=== PATIENT | female | born 1945 | race Caucasian/White ===

== ENCOUNTER → 2018-05-21 10:19 | Outpatient (CLI) | payer MEDICARE, OTHER, SELFPAY ==
--- NOTE | 2018-05-21 | DI.RAD.S_ITS ---
PROCEDURE: XR CERVICAL SPINE 2V OR 3V INDICATIONS: 72 year-old female with acute neck pain. TECHNIQUE: 4 view(s) of the cervical spine were acquired. COMPARISON: None. FINDINGS: Bones: No fractures or dislocations to the C6 level. The lateral masses of C1 appear intact on the odontoid view. There is C5-C6 degenerative disc narrowing. No suspicious bony lesions. Soft tissues: No prevertebral soft tissue swelling. Right chest central venous catheter is incompletely visualized. IMPRESSION: No acute bony injuries of the cervical spine to the C6 level. Cervicothoracic junction is unable to be seen. Mild C5-C6 disc degeneration. Dictated by: Avni Alvarado M.D. on 05/21/2018 at 12:18 Approved by: Avni Alvarado M.D. on 05/21/2018 at 12:21
--- NOTE | 2018-05-21 | DI.CT.S_ITS ---
PROCEDURE: CT ABDOMEN PELVIS W CON INDICATIONS: COLON CANCER. LEFT UPPER QUADRANT ABDOMINAL PAIN TECHNIQUE: After the administration of oral and intravenous contrast, 5 mm thick sections acquired from the diaphragms to the symphysis. 5 mm thick coronal and sagittal reformats were performed. For radiation dose reduction, the following was used: automated exposure control, adjustment of mA and/or kV according to patient size. COMPARISON: [facility], [place], PET/CT WHOLE BODY EXTENDED, 08/27/2015, 11:44. [facility], [place], THORAX WITH CONTRAST, 06/19/2016, 9:03. [facility], [place], CHEST/ABDOMEN WITH CONTRAST, 11/29/2016, 10:48. [facility], [place], CHEST/ABDOMEN WITH CONTRAST, 06/01/2017, 10:46. FINDINGS: Image quality: Excellent. ABDOMEN: Lung bases: A 5 mm subpleural nodule in the left lower lobe is probably small round atelectasis. A 3 mm nodule is noted in the right middle lobe (series 3 image 8), unchanged since 06/01/2017. Heart size is normal. Small hiatal hernia. Solid organs: Mild diffuse hepatic fatty infiltration. Liver is normal in size and enhancement. Gallbladder is normal. Biliary system is non-dilated. Pancreas enhances normally. Spleen is normal in size and enhancement. No adrenal nodules. Kidneys are normal in size and enhancement, without hydronephrosis. Peritoneum and bowel: Stomach, small bowel, and colon loops are normal in caliber and wall thickness. There is right hemicolectomy. No free fluid or air. Nodes and vessels: No retroperitoneal or mesenteric adenopathy. Aorta and inferior vena cava are normal in caliber. Miscellaneous: There are 2 fat-containing ventral hernias are see in the upper abdomen, one midline just below the xiphoid and one left of the midline more inferiorly. PELVIS: Genitourinary: Bladder wall thickness is normal. Miscellaneous: No inguinal hernias or adenopathy. Bones: No suspicious bony lesions. No vertebral body compression fractures. IMPRESSION: 1. Stable 3 mm right middle lobe nodule. 2. Small hiatal hernia. 3. A couple of fat-containing ventral hernias are seen in upper abdomen. 4. No evidence for recurrent colon cancer or metastatic disease. Dictated by: Crystal Persaud M.D. on 05/21/2018 at 15:13 Transcribed by: GUSTAVO on 05/21/2018 at 15:20 Approved by: Crystal Persaud M.D. on 05/21/2018 at 15:29
== END ==
PROVIDERS: PCP Internal Medicine; Visit Provider Internal Medicine
DX: C18.9 Malignant neoplasm of colon, unspecified (principal); R10.12 Left upper quadrant pain; K44.9 Diaphragmatic hernia without obstruction or gangrene; K43.9 Ventral hernia without obstruction or gangrene; R91.8 Other nonspecific abnormal finding of lung field; M50.322 Other cervical disc degeneration at C5-C6 level; M54.2 Cervicalgia
CPT/HCPCS: 72040; 74177; Q9967

== ENCOUNTER 2018-10-01 11:30 | Oncology outpatient (ONC) | payer MEDICARE, OTHER, SELFPAY ==
[2018-06-03 14:06] LABS: Add Manual Diff / Slide Review NO; Basophils Percent Auto 0.9 % (0-2); Eosinophils Percent Auto 2.1 % (2-4); Hematocrit 40.2 % (36-46); Hemoglobin 13.4 g/dL (12.0-16.0); Lymphocytes Percent Auto 17.4 % (25-40); Mean Corpuscular HGB Conc 33.3 % (30-36); Mean Corpuscular Hemoglobin 29.3 PG (26-34); Mean Corpuscular Volume 88.1 fL (80-100); Monocytes Percent Auto 7.6 % (3-14); Neutrophils Absolute Auto 6000 /uL (3000-5900); Platelet Count 180 X10^3/uL (150-400); Red Blood Cell Count 4.56 X10^6/uL (4.0-5.2); Red Cell Distribution Width 16.5 % (11.6-14.8); White Blood Cell Count 8.3 X10^3/uL (4.5-11.0)
[2018-06-03 14:18] LABS: Alanine Aminotransferase 28 IU/L (9-52); Albumin Globulin Ratio 1.5 (1.0-2.8); Alkaline Phosphatase 96 U/L (38-126); Aspartate Aminotransferase 26 IU/L (14-36); BUN Creatinine Ratio 22.5 (6-22); Bilirubin Total 0.4 mg/dL (0.2-1.3); Blood Urea Nitrogen 18 mg/dL (7-17); Calcium 8.9 mg/dL (8.4-10.2); Carbon Dioxide 18 mmol/L (22-32); Chloride 109 mmol/L (98-107); Estimated Glomerular Filt Rate > 60.0 mL/min (>60); Globulin 2.7 g/dL (1.7-4.1); Glucose 225 mg/dL (80-110); Lactate Dehydrogenase 517 U/L (313-618); Sodium 139 mmol/L (137-145); Total Protein 6.7 g/dL (6.3-8.2)
[2018-06-03 19:50] LABS: Ferritin 47.9 ng/mL (11.1-264); HEMOLYSIS 33 (0-50)
[2018-06-03 20:27] LABS: HEMOLYSIS 30 (0-50); Total Iron Binding Capacity 317 ug/dL (265-497); Transferrin 255 mg/dL (206-381)
[2018-06-03 20:55] LABS: Iron 54 ug/dL (37-170); Percent Iron Saturation 17 % (15-50)
[2018-06-11 11:57] VITALS: BP 121/62; PULSE 71; RESP 18; TEMP 36; O2SAT 98
--- NOTE | 2018-06-11 12:34 | ONC.GEN.PN ---
Diagnosis (1) Large B-cell lymphoma Diagnosis: 06/11/18 12:35 1. 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 Also found to have multiple bilateral pulmonary nodules. Stage IV disease. Bone marrow exam negative. C SF evaluation negative. Initial presentation with partial upper airway obstruction, improved on subsequent dexamethasone. Subsequently initiated on standard R/CHOP chemotherapy, completed on 07/23/2015. Chemotherapy followed by involved field radiation therapy, completed in mid September,. Her Port-A-Cath remains in. 2.. Chronic left knee pain. Upcoming surgery planned. 3.. Refractory/intermittent dysphagia/mild odynophagia on occasion, secondary to 2 granular cysts in her upper airway. 4. Previous confirmation of moderately severe iron deficiency anemia, in mid November 2016. Subsequently placed on twice daily ferrous sulfate. History of Present Illness History Of Present Illness: 06/11/18 12:38 Laya returns today for routine follow-up. When previously seen in mid February, she had just damaged her right eye, after bumping a night stand. It apparently was punctured. She has had 2 surgeries on her eye since our last visit. Her eye pressures remain in the mid 20 range. Her right-sided vision is very limited to a narrow central visual field. She has not yet had her left knee surgery. She is due to be rescoped by Dr. Nguyen shortly regarding her persistent dysphagia issues. She has completed her prior iron therapy. She denies any new lumps or bumps. Her recent appetite has been fine. She notes persistent hoarseness since her prior RT therapy. Home Medications and Allergies Home Medications Medication Instructions Recorded Confirmed Type lidocaine #0 06/21/16 History cyclobenzaprine 10 mg PO #0 10/27/17 History diazepam [Valium] 5 mg PO Q8HP PRN #10 tab 10/27/17 Rx oxycodone-acetaminophen [Percocet] 1 - 2 tab PO Q4HP PRN #20 tab 10/27/17 Rx oxycodone-acetaminophen [Percocet] 2 tab PO Q6HP PRN #14 tab 01/07/18 Rx [STOOL SOFTNER] 1 cap PO HS #0 01/11/18 History ferrous sulfate [Iron (ferrous 325 mg PO BID #0 01/11/18 History sulfate)] polysaccharide iron complex 150 mg PO BID #60 cap 01/11/18 Rx [Ferrex 150] methocarbamol 500 mg PO QIDP PRN #0 03/12/18 History brimonidine See Label Instructions .ROUTE 06/11/18 06/11/18 History .COMPLEX cyclopentolate [Cyclogyl] See Label Instructions .ROUTE 06/11/18 06/11/18 History .COMPLEX timolol [Betimol] See Label Instructions .ROUTE 06/11/18 06/11/18 History .COMPLEX travoprost [Travatan Z] See Label Instructions .ROUTE 06/11/18 06/11/18 History .COMPLEX Allergies Allergy/AdvReac Type Severity Reaction Status Date / Time adhesive tape [ADHESIVE TAPE] Allergy Mild BLISTERS Unverified 03/06/18 12:32 gabapentin AdvReac Severe SWELLING Unverified 03/06/18 12:32 THROAT codeine AdvReac Intermediate HALLUCINATI Unverified 03/06/18 12:32 ONS Exam Vital Signs: Vital Signs - 24 hr 06/11/18 11:57 Temperature 96.8 F L Pulse Rate 71 Respiratory Rate 18 Blood Pressure 121/62 H Pulse Oximetry 98 Exam: Blood pressure 121/62. Temperature 96.8?. Pulse rate 71. O2 saturation on room air was 98%. Weight 231 lb. Her right eye was almost completely closed. The eye itself was moderately inflamed. The oropharynx today was clear. I found this patient be mildly hoarse. Both lungs were clear to auscultation and percussion. No pathologic lymphadenopathy was noted today in the pre or postauricular, neck, chin, supraclavicular, epitrochlear or inguinal areas. Heart sounds were fine. Her abdomen was moderately obese and without palpable tenderness. There was no lower extremity fluid retention. She had pretty prominent varicose veins. Results - Labs 06/03/18 13:51 06/03/18 13:51 Laboratory Last Values WBC 8.3 X10^3/uL (4.5-11.0) 06/03/18 13:51 RBC 4.56 X10^6/uL (4.0-5.2) 06/03/18 13:51 Hgb 13.4 g/dL (12.0-16.0) 06/03/18 13:51 Hct 40.2 % (36-46) 06/03/18 13:51 MCV 88.1 fL (80-100) 06/03/18 13:51 MCH 29.3 PG (26-34) 06/03/18 13:51 MCHC 33.3 % (30-36) 06/03/18 13:51 RDW 16.5 % (11.6-14.8) H 06/03/18 13:51 Plt Count 180 X10^3/uL (150-400) 06/03/18 13:51 Neut % (Auto) 72.0 % (50-75) 06/03/18 13:51 Lymph % (Auto) 17.4 % (25-40) L 06/03/18 13:51 [place] % (Auto) 7.6 % (3-14) 06/03/18 13:51 Eos % (Auto) 2.1 % (2-4) 06/03/18 13:51 Baso % (Auto) 0.9 % (0-2) 06/03/18 13:51 Neut # (Auto) 6000 /uL (8527-6036) H 06/03/18 13:51 Sodium 139 mmol/L (137-145) 06/03/18 13:51 Potassium 4.0 mmol/L (3.4-5.1) 06/03/18 13:51 Chloride 109 mmol/L (98-107) H 06/03/18 13:51 Carbon Dioxide 18 mmol/L (22-32) L 06/03/18 13:51 BUN 18 mg/dL (7-17) H 06/03/18 13:51 Creatinine 0.80 mg/dL (0.52-1.04) 06/03/18 13:51 Estimated GFR > 60.0 mL/min (>60) 06/03/18 13:51 BUN/Creatinine Ratio 22.5 (6-22) H 06/03/18 13:51 Glucose 225 mg/dL (80-110) H 06/03/18 13:51 Calcium 8.9 mg/dL (8.4-10.2) 06/03/18 13:51 Iron 54 ug/dL (37-170) 06/03/18 13:51 TIBC 317 ug/dL (265-497) 06/03/18 13:51 % Saturation 17 % (15-50) 06/03/18 13:51 Transferrin 255 mg/dL (206-381) 06/03/18 13:51 Ferritin 47.9 ng/mL (11.1-264) 06/03/18 13:51 Total Bilirubin 0.4 mg/dL (0.2-1.3) 06/03/18 13:51 AST 26 IU/L (14-36) 06/03/18 13:51 ALT 28 IU/L (9-52) 06/03/18 13:51 Alkaline Phosphatase 96 U/L (38-126) 06/03/18 13:51 Lactate Dehydrogenase 517 U/L (313-618) 06/03/18 13:51 Total Protein 6.7 g/dL (6.3-8.2) 06/03/18 13:51 Albumin 4.0 g/dL (3.5-5.0) 06/03/18 13:51 Globulin 2.7 g/dL (1.7-4.1) 06/03/18 13:51 Albumin/Globulin Ratio 1.5 (1.0-2.8) 06/03/18 13:51 Impression Laya is now 2 years and 8 months out from completion of her chemotherapy. There are no signs of recurrent lymphoma. Her laboratory suggests that she has completely recovered from her prior iron deficiency anemia. We again agreed today leave her Port-A-Cath in until she gets some of these other speed bumps behind her. She is due to be rescoped by Dr. Nguyen shortly. At some point in time, Dr. Cannon will perform her left knee surgery. I will ask Laya to return here in 6 weeks for a PAC flush. I have her returning for oncologic follow-up in 4 months. Due to my upcoming half-way, she will see the nurse practitioner upon her return. I wished her well.
[2018-10-01 11:14] LABS: Add Manual Diff / Slide Review NO; Basophils Percent Auto 0.9 % (0-2); Eosinophils Percent Auto 2.7 % (2-4); Hematocrit 38.9 % (36-46); Hemoglobin 12.9 g/dL (12.0-16.0); Lymphocytes Percent Auto 18.1 % (25-40); Mean Corpuscular HGB Conc 33.3 % (30-36); Mean Corpuscular Hemoglobin 29.2 PG (26-34); Mean Corpuscular Volume 87.8 fL (80-100); Monocytes Percent Auto 7.2 % (3-14); Neutrophils Absolute Auto 5100 /uL (3000-5900); Neutrophils Percent Auto 71.1 % (50-75); Platelet Count 167 X10^3/uL (150-400); Red Blood Cell Count 4.43 X10^6/uL (4.0-5.2); Red Cell Distribution Width 14.8 % (11.6-14.8); White Blood Cell Count 7.1 X10^3/uL (4.5-11.0)
[2018-10-01 11:26] LABS: Alanine Aminotransferase 32 IU/L (9-52); Albumin 4.2 g/dL (3.5-5.0); Albumin Globulin Ratio 1.6 (1.0-2.8); Alkaline Phosphatase 67 U/L (38-126); Aspartate Aminotransferase 25 IU/L (14-36); BUN Creatinine Ratio 23.3 (6-22); Bilirubin Total 0.5 mg/dL (0.2-1.3); Blood Urea Nitrogen 14 mg/dL (7-17); Calcium 8.9 mg/dL (8.4-10.2); Carbon Dioxide 29 mmol/L (22-32); Chloride 101 mmol/L (98-107); Estimated Glomerular Filt Rate > 60.0 mL/min (>60); Globulin 2.7 g/dL (1.7-4.1); Glucose 117 mg/dL (80-110); HEMOLYSIS < 15 (0-50); Lactate Dehydrogenase 487 U/L (313-618); Potassium 4.5 mmol/L (3.4-5.1); Sodium 143 mmol/L (137-145); Total Protein 6.9 g/dL (6.3-8.2)
--- NOTE | 2018-10-01 12:38 | ONC.APRN.PN ---
PN -Subjective Interval history: The pt is a 73-year-old female who carries a diagnosis of: 1. 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 Also found to have multiple bilateral pulmonary nodules. Stage IV disease. Bone marrow exam negative. C SF evaluation negative. Initial presentation with partial upper airway obstruction, improved on subsequent dexamethasone. Subsequently initiated on standard R/CHOP chemotherapy, completed on 07/23/2015. Chemotherapy followed by involved field radiation therapy, completed in mid September,. Her Port-A-Cath remains in. 2.. Chronic left knee pain. Upcoming surgery planned. 3.. Refractory/intermittent dysphagia/mild odynophagia on occasion, secondary to 2 granular cysts in her upper airway as well as sequelae from radiation. 4. Previous confirmation of moderately severe iron deficiency anemia, in mid November 2016. Subsequently placed on twice daily ferrous sulfate. 5. Eye injury (puncture) now just completing her 3rd occular surgery The patient is accompanied today by her spouse. No acute complaints on exam today. No recent illnesses or infections. Infrequent night sweats, better when my sugars are ok. No new pain. No new lumps or bumps. At baseline patient ambulates using a cane. Functional status is stable, activity tolerance is stable. No change in appetite. No issue with bowel or bladder habits. Requesting to have implanted port removed, originally placed 2014. She is scheduled for annual mammogram 10/02/2018. - Patient Self-Reported Symptoms SR eye issues: Vision changes, Eye pain SR ears, nose, mouth, throat issues: Difficulty swallowing Home Medications and Allergies Home Medications Medication Instructions Recorded Confirmed Type lidocaine #0 06/21/16 History cyclobenzaprine 10 mg PO #0 10/27/17 History diazepam [Valium] 5 mg PO Q8HP PRN #10 tab 10/27/17 Rx [STOOL SOFTNER] 1 cap PO HS #0 01/11/18 History timolol [Betimol] See Label Instructions .ROUTE 06/11/18 06/11/18 History .COMPLEX Lantus U-100 Insulin BID 10/01/18 History brimonidine [Alphagan P] 10/01/18 History insulin aspart U-100 [Novolog 10/01/18 History U-100 Insulin aspart] levothyroxine 300 mcg PO DAILY 10/01/18 10/01/18 History omeprazole 40 mg PO DAILY 10/01/18 10/01/18 History prednisolone acet-gatifloxacin BID 10/01/18 History simvastatin 10/01/18 History telmisartan [Micardis] DAILY 10/01/18 History Allergies Allergy/AdvReac Type Severity Reaction Status Date / Time adhesive tape [ADHESIVE TAPE] Allergy Mild BLISTERS Unverified 03/06/18 12:32 gabapentin AdvReac Severe SWELLING Unverified 03/06/18 12:32 THROAT codeine AdvReac Intermediate HALLUCINATI Unverified 03/06/18 12:32 ONS Exam - Constitutional positive no acute distress, positive obese, positive chronically ill appearing - Routine HEENT Exam Head: Present: normocephalic, atraumatic Comments: right eye surgery recently - Routine Neck Exam Present: supple. Absent: lymphadenopathy - Routine Chest/Breast/Axilla Exam Axillae: Absent: lymphadenopathy, mass, tenderness - Routine Respiratory Exam Present: Clear to auscultation bilaterally, decreased breath sounds. Absent: accessory muscle use, prolonged expiratory phase, rales, rhonchi, wheezes - Routine Cardiovascular Exam Present: RRR, S1, S2, murmur. Absent: gallop, rubs, JVD - Routine Abdominal Exam Present: soft, normoactive bowel sounds. Absent: tenderness, distended, guarding, organomegaly, mass - Routine Extremities Exam Comments: chronic 1+ BLE symmetric edema, pitting - Routine Skin Exam Present: intact, normal turgor. Absent: petechiae - Routine Neurological Exam Present: alert, oriented X3 - Routine Psychiatric Exam Present: normal affect Results - Labs Laboratory Last Values WBC 7.1 X10^3/uL (4.5-11.0) 10/01/18 10:46 RBC 4.43 X10^6/uL (4.0-5.2) 10/01/18 10:46 Hgb 12.9 g/dL (12.0-16.0) 10/01/18 10:46 Hct 38.9 % (36-46) 10/01/18 10:46 MCV 87.8 fL (80-100) 10/01/18 10:46 MCH 29.2 PG (26-34) 10/01/18 10:46 MCHC 33.3 % (30-36) 10/01/18 10:46 RDW 14.8 % (11.6-14.8) 10/01/18 10:46 Plt Count 167 X10^3/uL (150-400) 10/01/18 10:46 Neut % (Auto) 71.1 % (50-75) 10/01/18 10:46 Lymph % (Auto) 18.1 % (25-40) L 10/01/18 10:46 [place] % (Auto) 7.2 % (3-14) 10/01/18 10:46 Eos % (Auto) 2.7 % (2-4) 10/01/18 10:46 Baso % (Auto) 0.9 % (0-2) 10/01/18 10:46 Neut # (Auto) 5100 /uL (3266-7691) 10/01/18 10:46 Sodium 143 mmol/L (137-145) 10/01/18 10:46 Potassium 4.5 mmol/L (3.4-5.1) 10/01/18 10:46 Chloride 101 mmol/L (98-107) 10/01/18 10:46 Carbon Dioxide 29 mmol/L (22-32) 10/01/18 10:46 BUN 14 mg/dL (7-17) 10/01/18 10:46 Creatinine 0.60 mg/dL (0.52-1.04) 10/01/18 10:46 Estimated GFR > 60.0 mL/min (>60) 10/01/18 10:46 BUN/Creatinine Ratio 23.3 (6-22) H 10/01/18 10:46 Glucose 117 mg/dL (80-110) H 10/01/18 10:46 Calcium 8.9 mg/dL (8.4-10.2) 10/01/18 10:46 Iron 54 ug/dL (37-170) 06/03/18 13:51 TIBC 317 ug/dL (265-497) 06/03/18 13:51 % Saturation 17 % (15-50) 06/03/18 13:51 Transferrin 255 mg/dL (206-381) 06/03/18 13:51 Ferritin 47.9 ng/mL (11.1-264) 06/03/18 13:51 Total Bilirubin 0.5 mg/dL (0.2-1.3) 10/01/18 10:46 AST 25 IU/L (14-36) 10/01/18 10:46 ALT 32 IU/L (9-52) 10/01/18 10:46 Alkaline Phosphatase 67 U/L (38-126) 10/01/18 10:46 Lactate Dehydrogenase 487 U/L (313-618) 10/01/18 10:46 Total Protein 6.9 g/dL (6.3-8.2) 10/01/18 10:46 Albumin 4.2 g/dL (3.5-5.0) 10/01/18 10:46 Globulin 2.7 g/dL (1.7-4.1) 10/01/18 10:46 Albumin/Globulin Ratio 1.6 (1.0-2.8) 10/01/18 10:46 - Imaging Additional studies: Procedures Insertion of totally implantable vascular access device [VAD] (04/06/15) Spinal tap (03/26/15) Assessment and Plan (1) Large B-cell lymphoma Current visit: Yes Status: Acute 73-year-old female with history of non-Hodgkin lymphoma, large B-cell. Reassuringly on exam today no clinical signs or symptoms to suggest disease recurrence. CBC, CMP, LDH within normal limits. Patient is requesting to have implanted port removed this was originally placed 2014. We will set up a consult with Dr Acosta, surgeon. RTC in 6 months for provider visit, cbc cmp LDH sooner for any acute changes including new lumps/bumps, persistent night sweats, change in appetite, unexplained weight loss. - Time Spent with Patient 25 mins
== END 2018-10-02 12:00 ==
PROVIDERS: PCP Internal Medicine; Visit Provider Internal Medicine Hematology & Oncology
DX: C83.31 Diffuse large B-cell lymphoma, lymph nodes of head, face, and neck (principal)
CPT/HCPCS: 36592; 72040; 74177; 80053; 82728; 83540; 83550; 83615; 85025; 96523; 99214; Q9967

== ENCOUNTER → 2018-10-02 11:02 | Outpatient (CLI) | payer MEDICARE, OTHER, SELFPAY ==
--- NOTE | 2018-10-02 | DI.MG.S_ITS ---
BILATERAL DIGITAL SCREENING MAMMOGRAM 3D/2D WITH CAD: 10/02/2018 CLINICAL: Routine screening. No prior exams were available for comparison. The tissue of both breasts is heterogeneously dense. This may lower the sensitivity of mammography. Current study was also evaluated with a Computer Aided Detection (CAD) system. There are benign vascular calcifications in both breasts. No significant masses, calcifications, or other findings are seen in either breast. IMPRESSION: There is no mammographic evidence of malignancy. A 1 year screening mammogram is recommended. NOTE: For mammograms, a report in lay terms will be sent to the patient. Approximately 15% of breast malignancies will not be visualized mammographically. In the management of a palpable breast mass, a negative mammogram must not discourage biopsy of a clinically suspicious lesion. Electronically Signed By: Trista corey/joseph:10/02/2018 15:46:56 letter sent: Normal Exam ACR BI-RADS Category 2: Benign Finding(s) 3342F
== END ==
PROVIDERS: Family Provider Internal Medicine Hematology & Oncology; PCP Internal Medicine; Visit Provider Internal Medicine
DX: Z12.31 Encounter for screening mammogram for malignant neoplasm of breast (principal)
CPT/HCPCS: 77063; 77067

== ENCOUNTER 2018-11-13 10:31 | Day surgery (SDC) | payer MEDICARE, OTHER, SELFPAY ==
[2018-11-08 09:58] VITALS: BMI 41.3
[2018-11-13 12:39] VITALS: BP 123/67; PULSE 57; RESP 15; TEMP 36.1; O2SAT 100; BMI 41.3
[2018-11-13] MEDS: LACTATED RINGERS 1,000 ML 42 ML IV (12:45)
--- NOTE | 2018-11-13 13:44 | SUR.OPER ---
Supine on padded OR bed, head on pillow, arms secured on padded arm boards at <90 degrees abduction, legs uncrossed, safety belt at thigh, tape over blanket over lower legs.
--- NOTE | 2018-11-13 14:06 | PM.HP.1 ---
History of Present Illness Date Patient Seen: 11/13/18 Time Patient Seen: 14:07 Chief complaint: [id number] Narrative: Wonderful lady who is well known to me from prior visits. She has completed her chemotherapy and presents today for port removal. Patient History Medical History Arthritis (Acute) Bowel obstruction (Acute) Colon cancer (Acute) Constipation (Acute) Diabetes (Acute) Frequent headaches (Acute) GERD (gastroesophageal reflux disease) (Acute) HTN (hypertension) (Acute) Hyperlipidemia (Acute) Hypothyroidism (Acute) Joint pain (Acute) Port-A-Cath in place (Acute 04/06/15) Sarcoidosis (Acute) Tracheal stenosis (Acute) Vision changes (Acute) Surgical History History of biopsy (Acute) History of bone marrow biopsy (Acute) History of section (Acute) Hx of eye surgery (Acute) Hx of hernia repair (Acute) Family & Social History Family History: Reviewed 11/13/18 by Lois Acosta MD Social History: household members spouse Tobacco & Substance use: Smoking Status Never smoker Meds Home Medications Medication Instructions Recorded Confirmed Type lidocaine #0 06/21/16 10/10/18 History cyclobenzaprine 10 mg PO #0 10/27/17 10/10/18 History [STOOL SOFTNER] 1 cap PO HS #0 01/11/18 10/10/18 History timolol [Betimol] See Label Instructions .ROUTE 06/11/18 11/08/18 History .COMPLEX Lantus U-100 Insulin BID 10/01/18 10/10/18 History brimonidine [Alphagan P] 10/01/18 10/10/18 History insulin aspart U-100 [Novolog 10/01/18 10/10/18 History U-100 Insulin aspart] levothyroxine 300 mcg PO DAILY 10/01/18 11/13/18 History omeprazole 40 mg PO DAILY 10/01/18 11/13/18 History prednisolone acet-gatifloxacin BID 10/01/18 10/10/18 History simvastatin 10/01/18 10/10/18 History telmisartan [Micardis] DAILY 10/01/18 10/10/18 History diazepam [Valium] 5 mg PO Q8HP PRN 11/08/18 11/13/18 History metformin 500 mg PO DAILY 11/13/18 11/13/18 History Allergies Allergy/AdvReac Type Severity Reaction Status Date / Time adhesive tape [ADHESIVE TAPE] Allergy Mild BLISTERS Verified 11/13/18 12:38 gabapentin AdvReac Severe SWELLING Verified 11/13/18 12:38 THROAT codeine AdvReac Intermediate HALLUCINATI Verified 11/13/18 12:38 ONS Review of Systems Review of Systems All systems reviewed & are unremarkable except as noted in HPI and below Exam Vital Signs (past 8 hours): - 11/13/18 12:39 Temperature 96.9 F L Pulse Rate 57 L Respiratory Rate 15 Blood Pressure 123/67 Pulse Oximetry 100 Oxygen Delivery Method Room Air Narrative Exam Narrative: Elderly lady in no obvious distress HEENT: Normocephalic and atraumatic, sclera are anicteric Lungs: Clear Heart: Regular rate and rhythm Chest: Port in place in the right chest Abdomen: Soft, nontender, active bowel sounds Extremities: Multiple wounds noted Assessment & Plan Plan: Assessment/Plan Narrative: Pleasant lady having completed chemotherapy for lymphoma. We discussed the risks and benefits of port removal and she has expressed a desire to complete the procedure today.
[2018-11-13] MEDS: LIDOCAINE 1% W/EPI INJ 20 ML INJ (14:24)
[2018-11-13] MEDS: BUPIVACAINE 0.5% (PF) VIAL 30 ML INJ (14:24)
--- NOTE | 2018-11-13 14:27 | PM.OP.1 ---
Operative Date/Time/Diagnoses Date of procedure: 11/13/18 Time of procedure: 14:27 Pre-op diagnosis: Completed Chemotherapy Post-op diagnosis: same Procedure & Clinicians Procedure: Power port removal Same procedure as scheduled: Yes Indications: No longer required Surgeon: Lois Acosta Click Yes if Unassisted: Yes Anesthesia Type: General and MAC +/- (Dr. Engel) Operative Notes Findings: Port in good repair Closure Type: primary Estimated Blood Loss (mL): 2 Procedure in detail: After obtaining informed consent, the patient was brought to the operating room and placed in the supine position on the operating table. Following successful induction of IV sedation with monitored anesthesia care, the chest was prepped and draped in the standard surgical fashion. A timeout was held per SCOAP protocol. Following infiltration with local anesthetic to create a field block, the existing healed incision was repeated. This was carried down through the skin and subcutaneous tissue to reveal the tubing of the implanted central venous device. The tubing was carefully dissected free from surrounding structures and delivered into the field. Pressure was held at the deltopectoral groove to prevent air embolus and backbleeding. After 5 minutes time, we continued with dissection of the remaining portion of the port. The reservoir itself remained in the pocket and has been incorporated into the tissue. This was carefully dissected free with judicious use of a scalpel. It was delivered into the field as a single piece with tubing attached. The incision was checked for hemostasis and irrigated with warm saline solution. Once we were satisfied that all was clean and dry, it was closed in 2 layers with Vicryl Monocryl sutures. Dermabond was applied to the skin incision. All sponge, needle, and instrument counts were correct at the conclusion of the case. The patient was allowed to awaken from sedation without difficulty and taken to the post anesthesia care unit in good condition. Complications: none Condition: stable Disposition: PACU Plan for aftercare: 1. Discharge to home 2. Follow up with me in 2-3 weeks for a wound check
[2018-11-13 14:30] VITALS: BP 112/45; PULSE 69; RESP 12; TEMP 36.6; O2SAT 95
[2018-11-13 14:35] VITALS: BP 121/40; PULSE 65; RESP 14; TEMP 36.7; O2SAT 97
[2018-11-13 14:38] VITALS: BP 121/40; PULSE 68; RESP 18; TEMP 36.6; O2SAT 97
--- NOTE | 2018-11-13 14:40 | SUR.PHASEII ---
see I&O for total of Lacrtated ringers infused- not noted in MAR on arrival to PACU
== END 2018-11-13 15:10 | disposition home or self-care (01) ==
PROVIDERS: Family Provider Internal Medicine Hematology & Oncology; PCP Internal Medicine; Visit Provider Surgery
PROC: (CPT 36590; principal; 2018-11-13 14:00)
DX: Z45.2 Encounter for adjustment and management of vascular access device (principal); E11.9 Type 2 diabetes mellitus without complications; I10 Essential (primary) hypertension; E78.5 Hyperlipidemia, unspecified; E03.9 Hypothyroidism, unspecified; Z79.4 Long term (current) use of insulin; C85.90 Non-Hodgkin lymphoma, unspecified, unspecified site
CPT/HCPCS: 36590; J2250; J2704; J3010

== ENCOUNTER → 2019-09-29 13:05 | Outpatient (CLI) | payer MEDICARE, OTHER, SELFPAY ==
--- NOTE | 2019-09-29 | DI.RAD.S_ITS ---
PROCEDURE: XR SHOULDER RT MIN 2V INDICATIONS: RIGHT SHOULDER PAIN/CHRISTIANO MASS AT JOINT TECHNIQUE: 3 views of the shoulder were acquired. COMPARISON: None. FINDINGS: Bones: No fractures or dislocations. No suspicious bony lesions. Visualized ribs appear intact. Glenohumeral joint degenerative change. Soft tissues: No suspicious soft tissue calcifications. IMPRESSION: Glenohumeral joint degenerative change. If clinical suspicion and/or symptoms persist, further assessment with repeat plain films, or advanced imaging (e.g., CT, MRI, or bone scan) may be helpful for further assessment. Dictated by: Raj Chacko M.D. on 09/29/2019 at 17:11 Approved by: Raj Chacko M.D. on 09/29/2019 at 17:11
== END ==
PROVIDERS: PCP Internal Medicine; Visit Provider Internal Medicine
DX: M25.511 Pain in right shoulder (principal); R22.2 Localized swelling, mass and lump, trunk
CPT/HCPCS: 73030

== ENCOUNTER → 2019-10-09 14:11 | Outpatient (CLI) | payer MEDICARE, OTHER, SELFPAY ==
--- NOTE | 2019-10-09 | DI.MG.S_ITS ---
BILATERAL DIGITAL SCREENING MAMMOGRAM 3D/2D WITH CAD: 10/09/2019 CLINICAL: Routine screening. Family history of breast cancer. Comparison is made to exam dated: 10/02/2018 mammogram - [facility]. The tissue of both breasts is heterogeneously dense. This may lower the sensitivity of mammography. Current study was also evaluated with a Computer Aided Detection (CAD) system. There are benign vascular calcifications in both breasts. No significant masses, calcifications, or other findings are seen in either breast. There has been no significant interval change. IMPRESSION: There is no mammographic evidence of malignancy. A 1 year screening mammogram is recommended. This exam was interpreted at Station ID: [id number]. NOTE: For mammograms, a report in lay terms will be sent to the patient. Approximately 15% of breast malignancies will not be visualized mammographically. In the management of a palpable breast mass, a negative mammogram must not discourage biopsy of a clinically suspicious lesion. Electronically Signed By: Manjeet holt/joseph:10/10/2019 07:24:16 letter sent: Normal Exam ACR BI-RADS Category 2: Benign Finding(s) 3342F
== END ==
PROVIDERS: PCP Internal Medicine; Visit Provider Internal Medicine
DX: Z12.31 Encounter for screening mammogram for malignant neoplasm of breast (principal); Z80.3 Family history of malignant neoplasm of breast
CPT/HCPCS: 77063; 77067

== ENCOUNTER 2019-11-06 13:15 | Emergency (ER) | payer MEDICARE, OTHER, SELFPAY ==
[2019-11-06 13:21] VITALS: BP 132/74; PULSE 76; RESP 15; TEMP 36.2; O2SAT 97; BMI 42.3
--- NOTE | 2019-11-06 13:23 | DI.RAD.S_ITS ---
PROCEDURE: XR KNEE RT 3V INDICATIONS: knee pain TECHNIQUE: 3 views of the knee were acquired. COMPARISON: None. FINDINGS: Bones: No displaced fractures or dislocations. No suspicious bony lesions. Olig-hv-vyibspgc degenerative changes of the knee are present. Soft tissues: A small joint effusion. No suspicious soft tissue calcifications. IMPRESSION: Degenerative changes of the right knee without acute fracture evident. Dictated by: Grzegorz Treadwell M.D. on 11/06/2019 at 13:01 Approved by: Grzegorz Treadwell M.D. on 11/06/2019 at 13:04
--- NOTE | 2019-11-06 13:30 | ED_ITS ---
HPI - Extremity Injury (Lower) <Leyla Robledo PA-C - Last Filed: 11/06/19 21:05> General Chief Complaint: Extremity Injury, Lower Stated Complaint: hurt her right knee from turning to tight Time Seen by Provider: 11/06/19 13:17 Source: patient Mode of arrival: Ambulatory Limitations: no limitations History of Present Illness HPI Narrative: This 74-year-old female comes to ED secondary to right knee pain. She states that this started 10 days ago, when she pivoted in her sloped driveway and felt pain (points to the medial side of the knee). She states that the pain was sharp, and since then she has had persistent pain in that area which is worse when she is walking on a slope or uneven surface and straightening the knee, better at rest. She has not felt any weakness or laxity in the knee. She states that she did not fall, did not injure the hip or ankle. She has known arthritis in that knee and also history of chronic meniscal tear. She states she has chronic soft tissue swelling above the knee on that side which is unchanged. She does have a cane as well as walkers at home. She states she has been taking Tylenol arthritis, will occasionally take pain medicine left over from surgery if needed. She states pain is not worse today, she came in because she was here at the hospital for another procedure. Related Data Home Medications Medication Instructions Recorded Confirmed lidocaine #0 06/21/16 10/10/18 cyclobenzaprine 10 mg PO DAILY #0 10/27/17 10/20/19 [STOOL SOFTNER] 1 cap PO HS #0 01/11/18 10/20/19 timolol [Betimol] See Rx Instructions .ROUTE .COMPLEX 06/11/18 10/20/19 Lantus U-100 Insulin 25 units BID 10/01/18 10/20/19 brimonidine [Alphagan P] 0.1 % DAILY 10/01/18 10/20/19 insulin aspart U-100 [Novolog See Rx Instructions .ROUTE .COMPLEX 10/01/18 10/10/18 U-100 Insulin aspart] levothyroxine 300 mcg PO DAILY 10/01/18 10/20/19 omeprazole 40 mg PO DAILY 10/01/18 10/20/19 prednisolone acet-gatifloxacin 1 drp BID 10/01/18 10/20/19 simvastatin 40 mg DAILY 10/01/18 10/20/19 telmisartan [Micardis] 20 mg DAILY 10/01/18 10/20/19 diazepam [Valium] 5 mg PO Q8HP PRN 11/08/18 10/20/19 metformin 500 mg PO DAILY 11/13/18 10/20/19 acetazolamide 250 mg PO DAILY 03/31/19 10/20/19 brimonidine-timolol [Combigan] 1 drp BID 03/31/19 10/20/19 latanoprost 1 drp DAILY 03/31/19 10/20/19 neomycin-polymyxin B-dexameth 03/31/19 netarsudil [Rhopressa] 03/31/19 ofloxacin 03/31/19 Previous Rx's Medication Instructions Recorded ondansetron 4 mg PO QID PRN #14 tab 11/13/18 oxycodone-acetaminophen [Percocet] 1 tab PO Q4-6H PRN #14 tab MDD 4 11/13/18 lidocaine [Lidoderm] 2 patch TOP Q24H #30 each 11/06/19 Allergies Allergy/AdvReac Type Severity Reaction Status Date / Time adhesive tape [ADHESIVE TAPE] Allergy Mild BLISTERS Verified 11/06/19 13:21 gabapentin AdvReac Severe SWELLING Verified 11/06/19 13:21 THROAT codeine AdvReac Intermediate HALLUCINATI Verified 11/06/19 13:21 ONS Review of Systems <Leyla Robledo PA-C - Last Filed: 11/06/19 21:05> Review of Systems ROS Unobtainable: All systems reviewed & are unremarkable except as noted in HPI and below Patient History <Leyla Robledo PA-C - Last Filed: 11/06/19 21:05> Medical History Arthritis (Acute) Bowel obstruction (Acute) Colon cancer (Acute) Constipation (Acute) Diabetes (Acute) Frequent headaches (Acute) GERD (gastroesophageal reflux disease) (Acute) HTN (hypertension) (Acute) Hyperlipidemia (Acute) Hypothyroidism (Acute) Joint pain (Acute) Port-A-Cath in place (Acute 04/06/15) Sarcoidosis (Acute) Tracheal stenosis (Acute) Vision changes (Acute) Surgical History History of biopsy (Acute) History of bone marrow biopsy (Acute) History of section (Acute) Hx of eye surgery (Acute) Hx of hernia repair (Acute) Social History marital status: household members: spouse occupational status: previously employed Smoking Status: Never smoker Smoking Status: Never smoker alcohol intake frequency: holidays/special occasions only Substance Use Type: does not use Exam <Leyla Robledo PA-C - Last Filed: 11/06/19 21:05> Narrative Exam Narrative: GENERAL APPEARANCE: Patient sitting comfortably, in no distress. LUNGS: Clear to auscultation bilaterally. HEART: Rate and rhythm regular low pitched III/ systolic murmur, normal S1 and S2, no S3 or S4. MUSCULOSKELETAL: No joint effusion over the knees, there is a little bit of soft tissue prominence superior patellar border on the right. No joint line poi nt tenderness. Full range of motion with mild crepitus and tenderness with full extension. No obvious laxity. Tender with valgus stress, unable to fully assess secondary to tenderness. No tenderness over the ankle, full range of motion. EXTREMITIES: No edema, right pedal pulses intact DERMATOLOGIC: Chronic, dry appearing excoriations noted right lateral lower extremity Initial Vital Signs Initial Vital Signs: Vital Signs Temperature 97.1 F L 11/06/19 13:21 Pulse Rate 76 11/06/19 13:21 Respiratory Rate 15 11/06/19 13:21 Blood Pressure 132/74 11/06/19 13:21 Pulse Oximetry 97 11/06/19 13:21 <Magui Mcdaniel DO - Last Filed: 11/09/19 06:00> Initial Vital Signs Initial Vital Signs: Vital Signs Temperature 97.1 F L 11/06/19 13:21 Pulse Rate 76 11/06/19 13:21 Respiratory Rate 15 11/06/19 13:21 Blood Pressure 132/74 11/06/19 13:21 Pulse Oximetry 97 11/06/19 13:21 Course <Leyla Robledo PA-C - Last Filed: 11/06/19 21:05> Orders Ordered: ED Orders 11/06/19 13:23 XR knee RT 3V Stat Vital Signs Vital signs: Vital Signs - 8 hr 11/06/19 13:21 11/06/19 14:54 Temperature 97.1 F L Pulse Rate 76 71 Respiratory Rate 15 Blood Pressure 132/74 123/53 L Pulse Oximetry 97 97 <Magui Perry Violeta, DO - Last Filed: 11/09/19 06:00> Orders Ordered: ED Orders 11/06/19 13:23 XR knee RT 3V Stat Vital Signs Vital signs: Vital Signs - 8 hr 11/06/19 13:21 11/06/19 14:54 Temperature 97.1 F L Pulse Rate 76 71 Respiratory Rate 15 Blood Pressure 132/74 123/53 L Pulse Oximetry 97 97 Discharge Plan Departure Patient Disposition: Home Clinical Impression: Internal derangement of knee Qualifiers: Laterality: right Qualified Code(s): M23.91 - Unspecified internal derangement of right knee Discharge Date/Time: 11/06/19 14:55 Instructions: DI for Knee Sprain Activity Restrictions/Additional Instructions: I suspect that you have a soft tissue injury, probably a partial tear or strain of meniscus or ligament on top of your arthritis. Please wear the Christophe wrap, avoid walking on uneven surface as much as possible, and use your walker. Avoid pivoting. You can take your usual pain medicine, and I have also sent in a prescription for lidocaine patches to try to the base. Follow-up with your PCP next week to assess your progress and determine whether further treatment or referral are needed. Prescriptions: New lidocaine [Lidoderm] 5 % adhesive patch,medicated 2 patch TOP Q24H Qty: 30 RF: 0 No Action lidocaine 4 % Cream Qty: 0 RF: 0 cyclobenzaprine 10 MG tablet 10 mg PO DAILY Qty: 0 RF: 0 [STOOL SOFTNER] 1 cap PO HS Qty: 0 RF: 0 Betimol 0.5 % Drops See Rx Instructions .ROUTE .COMPLEX RF: 0 Alphagan P 0.1 % Drops 0.1 % DAILY RF: 0 prednisolone acet-gatifloxacin 1-0.5 % Drops,Suspension 1 drp BID RF: 0 simvastatin 40 mg Tablet 40 mg DAILY RF: 0 Novolog U-100 Insulin aspart 100 unit/mL Solution See Rx Instructions .ROUTE .COMPLEX RF: 0 Lantus U-100 Insulin 25 units 25 units BID RF: 0 levothyroxine 300 mcg Tablet 300 mcg PO DAILY RF: 0 telmisartan [Micardis] 20 mg Tablet 20 mg DAILY RF: 0 omeprazole 40 mg Capsule,Delayed Release(Dr/Ec) 40 mg PO DAILY RF: 0 latanoprost 0.005 % Drops 1 drp DAILY RF: 0 acetazolamide 250 mg Tablet 250 mg PO DAILY RF: 0 ofloxacin 0.3 % Drops RF: 0 neomycin-polymyxin B-dexameth 3.5 mg/g-10,000 unit/g-0.1 % Ointment RF: 0 Combigan 0.2-0.5 % Drops 1 drp BID RF: 0 Rhopressa 0.02 % Drops RF: 0 diazepam [Valium] 5 MG tablet 5 mg PO Q8HP PRN (Reason: Anxiety) RF: 0 metformin 500 mg Tablet 500 mg PO DAILY RF: 0 oxycodone-acetaminophen [Percocet] 5-325 mg tablet 1 tab PO Q4-6H MDD 4 PRN (Reason: pain) Qty: 14 RF: 0 ondansetron 4 mg tablet,disintegrating 4 mg PO QID PRN (Reason: nausea and vomiting) Qty: 14 RF: 0 Referrals: Bong Mcarthur MD [Primary Care Provider] -
[2019-11-06 14:54] VITALS: BP 123/53; PULSE 71; O2SAT 97
== END 2019-11-06 14:55 | disposition home or self-care (01) ==
PROVIDERS: Emergency Provider Internal Medicine; PCP Internal Medicine
DX: M23.91 Unspecified internal derangement of right knee (principal)
CPT/HCPCS: 73562; 99282; 99283

== ENCOUNTER → 2020-10-12 15:32 | Outpatient (CLI) | payer MEDICARE, OTHER, SELFPAY ==
--- NOTE | 2020-10-12 | DI.MG.S_ITS ---
BILATERAL DIGITAL SCREENING MAMMOGRAM 3D/2D WITH CAD: 10/12/2020 CLINICAL: Routine screening. Family history of breast cancer. Comparison is made to exams dated: 10/09/2019 mammogram, 10/02/2018 mammogram - [facility], and 11/02/2015 mammogram - [facility]. The tissue of both breasts is heterogeneously dense. This may lower the sensitivity of mammography. Current study was also evaluated with a Computer Aided Detection (CAD) system. There are benign vascular calcifications in both breasts. No significant masses, calcifications, or other findings are seen in either breast. There has been no significant interval change. IMPRESSION: BENIGN There is no mammographic evidence of malignancy. A 1 year screening mammogram is recommended. This exam was interpreted at Station ID: [id number]. NOTE: For mammograms, a report in lay terms will be sent to the patient. Approximately 15% of breast malignancies will not be visualized mammographically. In the management of a palpable breast mass, a negative mammogram must not discourage biopsy of a clinically suspicious lesion. Electronically Signed By: Cherelle mccollum/joseph:10/12/2020 16:23:08 letter sent: Normal Exam ACR BI-RADS Category 2: Benign Finding(s) 3342F
== END ==
PROVIDERS: PCP Internal Medicine; Referring Provider Internal Medicine; Visit Provider Internal Medicine
DX: Z12.31 Encounter for screening mammogram for malignant neoplasm of breast (principal); Z80.3 Family history of malignant neoplasm of breast
CPT/HCPCS: 77063; 77067

== ENCOUNTER → 2021-03-03 10:25 | Outpatient (CLI) | payer MEDICARE, OTHER, SELFPAY ==
--- NOTE | 2021-03-03 | DI.RAD.S_ITS ---
PROCEDURE: FL BARIUM SWALLOW INDICATIONS: Dysphagia, unspecified COMPARISON: [facility], CT, CT ABDOMEN PELVIS W CON, 05/21/2018, 12:07. [facility], MG, MM SCREENING MAMMO BI, 10/12/2020, 15:49. FINDINGS: The upper esophagus at the thoracic inlet appears irregular and narrowed. There is normal esophageal peristalsis. There is normal transit of a calibrated barium tablet through the esophagus into the stomach. No extrinsic mass effects, or diverticula. Limited images of the stomach demonstrate normal appearance. IMPRESSION: 1. Narrowing and irregularity of the upper esophagus at the thoracic inlet. Recommend EGD for further evaluation. 2. Small hiatal hernia. 3. The exam is limited because of the patient's condition. Dictated by: Crystal Persaud M.D. on 03/03/2021 at 11:34 Approved by: Crystal Persaud M.D. on 03/03/2021 at 11:39
== END ==
PROVIDERS: PCP Internal Medicine; Referring Provider Internal Medicine; Visit Provider Internal Medicine
DX: R13.10 Dysphagia, unspecified (principal); K44.9 Diaphragmatic hernia without obstruction or gangrene
CPT/HCPCS: 74221

== ENCOUNTER → 2021-05-04 13:13 | Outpatient (CLI) | payer MEDICARE, OTHER, SELFPAY ==
[2021-05-04 14:34] LABS: COVID19 -Nasal RAPID Negative (Negative)
== END ==
PROVIDERS: PCP Internal Medicine; Referring Provider Internal Medicine; Visit Provider Internal Medicine
DX: Z20.822 Contact with and (suspected) exposure to COVID-19 (principal)
CPT/HCPCS: 87635; C9803

== ENCOUNTER → 2021-05-05 13:16 | Outpatient (CLI) | payer MEDICARE, OTHER, SELFPAY ==
--- NOTE | 2021-05-13 16:50 | PM.PFT.1 ---
Pulmonary Function Test Referral & Results Date Patient Seen: 05/05/21 Requesting provider: Bong Mcarthur Results: The spirometry demonstrates an FVC of 1.46 L which is 54% of predicted. The FEV1 was measured at 0.97 L which is 47% of predicted. The FEV1/FVC ratio was 66 which is 88% of predicted. Lung volumes show an SVC of 1.80 L which is 67% of predicted. The diffusing capacity was measured at 20.8 to which is 90% of predicted. The maximum voluntary ventilation was reduced Interpretation: This study demonstrates severe obstructive lung disease with FEV1 less than 1 L. There is also moderately severe restrictive lung disease based on reduction in SVC Diffusing capacity remains normal Clinical correlation suggested
== END ==
PROVIDERS: PCP Internal Medicine; Referring Provider Internal Medicine; Visit Provider Internal Medicine
DX: R06.02 Shortness of breath (principal); J98.8 Other specified respiratory disorders
CPT/HCPCS: 94010; 94726; 94729

== ENCOUNTER → 2021-06-06 09:26 | Outpatient (CLI) | payer MEDICARE, OTHER, SELFPAY ==
[2021-06-06 11:57] LABS: COVID19 -Nasal RAPID Negative (Negative)
== END ==
PROVIDERS: PCP Internal Medicine; Visit Provider Physician Assistant
DX: Z01.812 Encounter for preprocedural laboratory examination (principal); Z20.822 Contact with and (suspected) exposure to COVID-19
CPT/HCPCS: 87635; C9803

== ENCOUNTER 2021-06-08 12:28 | Day surgery (SDC) | payer MEDICARE, OTHER, SELFPAY ==
--- NOTE | 2021-06-08 13:31 | P.HP_ITS ---
History of Present Illness History of Present Illness Chief complaint: [facility] [place] Narrative: Esophageal dysphagia with abnormal barium swallow Patient History Medical History (Updated 06/08/21 @ 13:18 by Lj Bravo RN) Arthritis Bowel obstruction Colon cancer Constipation Diabetes Frequent headaches GERD (gastroesophageal reflux disease) Glaucoma History of PFTs HTN (hypertension) Hyperlipidemia Hypothyroidism Joint pain Port-A-Cath in place (04/06/15) Radiation adverse effect Sarcoidosis Tracheal stenosis Vision changes Surgical History (Updated 06/08/21 @ 13:17 by Lj Bravo RN) History of biopsy History of bone marrow biopsy History of bronchoscopy History of section Hx of eye surgery Hx of hernia repair Hx of tracheostomy S/p bilateral carpal tunnel release Family & Social History Social History: household members spouse Tobacco & Substance use: Smoking Status Never smoker alcohol intake frequency holiday/special occasion Substance Use Type does not use Meds Home Medications and Allergies Home Medications Medication Instructions Recorded Confirmed Type lidocaine 4 % topical cream #0 06/21/16 10/10/18 History [STOOL SOFTNER] 1 cap PO HS #0 01/11/18 05/16/21 History timolol 0.5 % eye drops (Betimol) See Rx Instructions .ROUTE .COMPLEX 06/11/18 0 05/16/21 History Lantus U-100 Insulin 25 units BID 10/01/18 05/16/21 History brimonidine 0.1 % eye drops 0.1 % DAILY 10/01/18 05/16/21 History (Alphagan P) insulin aspart U-100 100 unit/mL See Rx Instructions .ROUTE .COMPLEX 10/01/18 05/16/21 History subcutaneous solution (Novolog U-100 Insulin aspart) levothyroxine 300 mcg tablet 300 mcg PO DAILY 10/01/18 05/16/21 History omeprazole 40 mg capsule,delayed 40 mg PO DAILY 10/01/18 05/16/21 History release prednisolone 1 %-gatifloxacin 0.5 1 drp BID 10/01/18 05/16/21 History % eye drops,suspension simvastatin 40 mg tablet 40 mg DAILY 10/01/18 05/16/21 History telmisartan 20 mg tablet (Micardis) 20 mg DAILY 10/01/18 05/16/21 History metformin 500 mg tablet 500 mg PO DAILY 11/13/18 05/16/21 History ondansetron 4 mg disintegrating 4 mg PO QID PRN #14 tab 11/13/18 05/16/21 Rx tablet oxycodone-acetaminophen 5 mg-325 1 tab PO Q4-6H PRN #14 tab MDD 4 11/13/18 10/20/19 Rx mg tablet (Percocet) acetazolamide 250 mg tablet 250 mg PO DAILY 03/31/19 05/16/21 History brimonidine 0.2 %-timolol 0.5 % 1 drp BID 03/31/19 05/16/21 History eye drops (Combigan) latanoprost 0.005 % eye drops 1 drp DAILY 03/31/19 05/16/21 History neomycin 3.5 mg/g-polymyxin B 03/31/19 History 10,000 unit/g-dexameth 0.1 % eye oint lidocaine 5 % topical patch 2 patch TOP Q24H #30 each 11/06/19 Rx (Lidoderm) vit C-vit E-Se-ginkgo biloba 60 1 tab PO DAILY 05/16/21 05/16/21 History mg-30 unit-70 mcg-40 mg tablet (Memory Complex) temazepam 15 mg capsule 15 mg PO BEDTIME PRN 06/08/21 06/08/21 History Allergies Allergy/AdvReac Type Severity Reaction Status Date / Time adhesive tape [ADHESIVE TAPE] Allergy Mild BLISTERS Verified 11/06/19 13:21 gabapentin AdvReac Severe SWELLING Verified 11/06/19 13:21 THROAT codeine AdvReac Intermediate HALLUCINATI Verified 11/06/19 13:21 ONS Exam Narrative Exam Narrative: Oropharynx free of lesions Chest clear to auscultation percussion Cardiac exam no S3 Assessment & Plan Assessment & Plan narrative: Esophageal dysphagia with abnormal barium swallow and history lymphoma treated with radiation therapy. Need for evaluation of the stricture and possible dilation and biopsy. Risks, benefits, alternatives have been explained.
--- NOTE | 2021-06-08 13:35 | PM.OP.ENDO ---
Procedure & Clinicians Study performed: EGD Indications: Dysphagia with abnormal barium swallow Surgeon: Armando Lockwood Procedure Notes Procedure in detail: After informed consent was obtained the patient was placed in the left lateral decubitus position. The video upper scope was placed into the oropharynx and with the patient's help swelled into the esophagus. The esophagus stomach and duodenum were carefully examined. On withdrawal retroflexed view the GE junction was performed. The scope was removed. The patient tolerated procedure well. Blood loss none Complications none Sedation MAC Findings 1. Grossly normal hypopharynx and upper esophageal sphincter. 2. Grossly normal esophagus in the entirety of his ketty. Photos were taken on withdrawal at 40 cm 30 cm 25 cm and 22 cm showing, after insufflation, there was no impingement on the lumen. Likewise the mucosa appeared quite normal throughout the entire length of the esophagus. 3. Multiple medium to large polyps in the body of the stomach not sampled 4. Normal distal stomach and pylorus 5. Normal duodenal bulb and sweep Given the findings here I suspect that the findings on barium swallow rim more from dysmotility. I would suggest she follow up with Dr. Sullivan at the next available clinic appointment to discuss.
[2021-06-08 13:45] VITALS: BP 140/64; PULSE 75; RESP 16; TEMP 36; O2SAT 98; BMI 44.6
[2021-06-08 16:53] VITALS: BP 126/87; PULSE 72; RESP 19; TEMP 36.6; O2SAT 95
[2021-06-08 16:58] VITALS: BP 112/95; PULSE 73; RESP 22; O2SAT 95
[2021-06-08 17:03] VITALS: BP 94/57; PULSE 74; RESP 20; O2SAT 95
[2021-06-08 17:06] VITALS: BP 134/43; PULSE 69; RESP 20; TEMP 36.6; O2SAT 95
[2021-06-08 17:25] VITALS: BP 138/65; PULSE 75; RESP 16; TEMP 36.1; O2SAT 97
== END 2021-06-08 17:21 | disposition home or self-care (01) ==
PROVIDERS: PCP Internal Medicine; Referring Provider Internal Medicine Gastroenterology; Visit Provider Internal Medicine Gastroenterology
PROC: 0DJ08ZZ Inspection of Upper Intestinal Tract, Via Natural or Artificial Opening Endoscopic (ICD-10-PCS; CPT 43235; principal; 2021-06-08 14:30)
DX: R13.10 Dysphagia, unspecified (principal); R93.5 Abnormal findings on diagnostic imaging of other abdominal regions, including retroperitoneum; Z85.79 Personal history of other malignant neoplasms of lymphoid, hematopoietic and related tissues; Z92.3 Personal history of irradiation; E11.9 Type 2 diabetes mellitus without complications; Z79.4 Long term (current) use of insulin; I10 Essential (primary) hypertension; E78.5 Hyperlipidemia, unspecified; E03.9 Hypothyroidism, unspecified; K31.7 Polyp of stomach and duodenum
CPT/HCPCS: 43235; J2704

== ENCOUNTER 2021-07-18 09:52 | Emergency (ER) | payer MEDICARE, OTHER, SELFPAY ==
[2021-07-18] VITALS (11 sets, daily range): BP systolic 112–170; BP diastolic 51–71; PULSE 65–79; RESP 19–32; TEMP 36.7; O2SAT 94–98; BMI 42.8
--- NOTE | 2021-07-18 10:00 | DI.RAD.S_ITS ---
PROCEDURE: XR CHEST 1V INDICATIONS: chest pain TECHNIQUE: One view of the chest was acquired. COMPARISON: None. FINDINGS: Surgical changes and devices: None. Lungs and pleura: Lungs are clear. No pleural effusions or pneumothorax. Mediastinum: Mediastinal contours appear normal. Heart size is normal. Bones and chest wall: No suspicious bony lesions. Overlying soft tissues appear unremarkable. IMPRESSION: No acute cardiopulmonary disease process. Dictated by: Rosi Patel MD, PhD on 07/18/2021 at 10:34 Approved by: Rosi Patel MD, PhD on 07/18/2021 at 10:35
--- NOTE | 2021-07-18 10:09 | ED_ITS ---
HPI - General Adult General Chief complaint: Chest Pain Stated complaint: chest pains Time Seen by Provider: 07/18/21 09:54 Source: patient Mode of arrival: Ambulatory History of Present Illness HPI narrative: 75-year-old male. Is an insulin-dependent diabetic. Also has a history of non-Hodgkin's lymphoma. Has completed treatment for this. Also has a history of hypertension. Here for evaluation of 2-3 hours of chest discomfort that is radiating to her neck. She states that it started when she bent over to pick out hand her dog. Describes it as a pressure in her chest. Has had symptoms since then. Is worse with taking a deep breath. Pain not worse with palpation. Has never had a heart attack before. Not on blood thinners. Related Data Home Medications Medication Instructions Recorded Confirmed lidocaine 4 % topical cream 1 applic TOPICAL PRN PRN #0 06/21/16 06/08/21 [STOOL SOFTNER] 1 cap PO HS #0 01/11/18 06/08/21 timolol 0.5 % eye drops (Betimol) See Rx Instructions .ROUTE .COMPLEX 06/11/18 06/08/21 Lantus U-100 Insulin 25 units BID 10/01/18 06/08/21 brimonidine 0.1 % eye drops 0.1 % EYE-LEFT DAILY 10/01/18 06/08/21 (Alphagan P) insulin aspart U-100 100 unit/mL See Rx Instructions .ROUTE .COMPLEX 10/01/18 06/08/21 subcutaneous solution (Novolog U-100 Insulin aspart) levothyroxine 300 mcg tablet 300 mcg PO DAILY 10/01/18 06/08/21 omeprazole 40 mg capsule,delayed 40 mg PO BEDTIME 10/01/18 06/08/21 release prednisolone 1 %-gatifloxacin 0.5 1 drp EYE-LEFT BID 10/01/18 06/08/21 % eye drops,suspension simvastatin 40 mg tablet 40 mg DAILY 10/01/18 06/08/21 telmisartan 20 mg tablet (Micardis) 20 mg DAILY 10/01/18 06/08/21 metformin 500 mg tablet 500 mg PO DAILY 11/13/18 06/08/21 brimonidine 0.2 %-timolol 0.5 % 1 drp EYE-LEFT BID 03/31/19 06/08/21 eye drops (Combigan) latanoprost 0.005 % eye drops 1 drp EYE-LEFT DAILY 03/31/19 06/08/21 temazepam 15 mg capsule 15 mg PO BEDTIME PRN 06/08/21 06/08/21 Previous Rx's Medication Instructions Recorded oxycodone-acetaminophen 5 mg-325 1 tab PO Q4-6H PRN #14 tab MDD 4 11/13/18 mg tablet (Percocet) Allergies Allergy/AdvReac Type Severity Reaction Status Date / Time adhesive tape [ADHESIVE TAPE] Allergy Mild BLISTERS Verified 11/06/19 13:21 gabapentin AdvReac Severe SWELLING Verified 11/06/19 13:21 THROAT codeine AdvReac Intermediate HALLUCINATI Verified 11/06/19 13:21 ONS Review of Systems Constitutional Constitutional: Reports system reviewed and no additional complaints, except as documented ENT Ears, Nose, Mouth, and Throat: Reports as per HPI Cardiovascular Cardiovascular: Reports as per HPI Respiratory Respiratory: Reports as per HPI Gastrointestinal Gastrointestinal: Reports system reviewed and no additional complaints, except as documented Musculoskeletal Musculoskeletal: Reports system reviewed and no additional complaints, except as documented Integumentary/Breasts Skin/Breast: Reports system reviewed and no additional complaints, except as documented Neurologic Neurologic: Reports system reviewed and no additional complaints, except as documented Hematologic/Lymphatic On Anticoagulants: No Allergic/Immunologic Allergic/Immunologic: Reports system reviewed and no additional complaints, except as documented Patient History Medical History Arthritis Bowel obstruction Colon cancer Constipation Diabetes Frequent headaches GERD (gastroesophageal reflux disease) Glaucoma History of PFTs HTN (hypertension) Hyperlipidemia Hypothyroidism Joint pain Murmur, heart Port-A-Cath in place (04/06/15) Radiation adverse effect Sarcoidosis Tracheal stenosis Vision changes Surgical History (Updated 06/08/21 @ 13:17 by Lj Bravo RN) History of biopsy History of bone marrow biopsy History of bronchoscopy History of section Hx of eye surgery Hx of hernia repair Hx of tracheostomy S/p bilateral carpal tunnel release Social History marital status: household members: spouse occupational status: previously employed Smoking Status: Never smoker alcohol intake: never Smoking Status: Never smoker alcohol intake frequency: holidays/special occasions only Substance Use Type: does not use Exam Initial Vital Signs Initial Vital Signs: Vital Signs Pulse Rate 65 07/18/21 10:07 Respiratory Rate 32 H 07/18/21 10:07 Pulse Oximetry 98 07/18/21 10:07 Const General: cooperative and healthy appearing [facility] Head: normal to inspection and normocephalic Chest Chest: No crepitus and No tenderness Resp Effort & Inspection: normal respiratory effort Auscultation: clear to auscultation bilaterally Cardio Rate: regular rate Rhythm: regular rhythm GI Inspection: normal to inspection and non-distended Palpation: soft Skin General: no rashes or lesions noted Neuro General: patient alert, patient awake, patient oriented x3 and moves all extremities Extrem General: normal to inspection Psych Appearance: grossly normal and well kempt Course Orders Ordered: ED Orders 07/18/21 10:00 XR chest 1V Stat 07/18/21 10:01 EKG-12 Lead Stat 07/18/21 10:04 Complete Blood Count AUTO DIFF Stat Comprehensive Metabolic Panel Stat Lipase Stat Troponin & CK Cardiac Panel Stat 07/18/21 12:05 Troponin & CK Cardiac Panel Stat Nitroglycerin (Nitroglycerin 0.4 Mg Sl Tab) 0.4 mg SL [id number] PRN PRN Reason: Chest Pain Last Admin: 07/18/21 10:14 Dose: 0.4 mg Documented by: OSVALDO Discontinued Medications Aspirin (Aspirin 81 Mg Chew Tab) 324 mg PO NOW ONE Stop: 07/18/21 10:05 Last Admin: 07/18/21 10:14 Dose: 324 mg Documented by: OSVALDO Al Hydrox/Mg Hydrox/Simethicone 20 ml/ Lidocaine HCl 15 ml 0 ml PO NOW ONE Stop: 07/18/21 10:09 Last Admin: 07/18/21 10:14 Dose: 20 ml Documented by: OSVALDO Morphine Sulfate (Morphine 4 Mg/Ml Inj) 4 mg IV NOW ONE Stop: 07/18/21 11:13 Last Admin: 07/18/21 11:18 Dose: 4 mg Documented by: OSVALDO Vital Signs Vital signs: Vital Signs - 8 hr 07/18/21 10:07 07/18/21 10:08 07/18/21 10:19 Temperature 98.0 F Pulse Rate 65 70 71 Respiratory Rate 32 H 20 28 H Blood Pressure 170/71 H 126/57 L Pulse Oximetry 98 98 97 07/18/21 10:30 07/18/21 11:00 07/18/21 11:25 Temperature Pulse Rate 75 75 77 Respiratory Rate 21 20 29 H Blood Pressure 113/55 L 114/54 L 117/53 L Pulse Oximetry 95 94 95 07/18/21 11:30 07/18/21 12:00 07/18/21 12:30 Temperature Pulse Rate 76 78 79 Respiratory Rate 23 19 Blood Pressure 112/56 L 118/58 L 114/51 L Pulse Oximetry 95 95 95 Medical Decision Making Medical Records Medical records reviewed: Yes I reviewed the patient's medical records. Lab Data Lab results reviewed: Yes I reviewed the patient's lab results. Result diagrams: 07/18/21 10:04 07/18/21 10:04 Labs: Lab Results 07/18/21 07/18/21 07/18/21 Range/Units 10:04 10:04 12:05 WBC 10.3 (4.5-11.0) X10^3/uL RBC 4.49 (4.0-5.2) X10^6/uL Hgb 12.6 (12.0-16.0) g/dL Hct 38.6 (36-46) % MCV 85.9 (80-100) fL MCH 28.0 (26-34) PG MCHC 32.6 (30-36) % RDW 14.8 (11.6-14.8) % Plt Count 200 (150-400) X10^3/uL Neut % (Auto) 77.2 H (50-75) % Lymph % (Auto) 14.3 L (25-40) % [place] % (Auto) 5.6 (3-14) % Eos % (Auto) 2.1 (2-4) % Baso % (Auto) 0.8 (0-2) % Neut # (Auto) 8000 H (8053-4578) /uL Lymph # (Auto) 1500 (9071-7356) /uL [place] # (Auto) 600 (0-900) /uL Eos # (Auto) 200 (0-450) /uL Baso # (Auto) 100 (0-100) /uL Sodium 140 (137-145) mmol/L Potassium 4.5 (3.4-5.1) mmol/L Chloride 105 (98-107) mmol/L Carbon Dioxide 27 (22-32) mmol/L BUN 19 H (7-17) mg/dL Creatinine 0.60 (0.52-1.04) mg/dL Estimated GFR > 60.0 (>60) mL/min BUN/Creatinine Ratio 31.7 H (6-22) Glucose 137 H (80-110) mg/dL Calcium 9.0 (8.4-10.2) mg/dL Total Bilirubin 0.6 (0.2-1.3) mg/dL AST 30 (14-36) IU/L ALT 28 (<35) IU/L Alkaline Phosphatase 77 (38-126) U/L Total Creatine Kinase 134 114 (30-135) U/L CK-MB (CK-2) 3.75 H 3.10 H (<2.37) ng/mL CK-MB (CK-2) Rel Index 2.8 2.7 (1.5-5.0) % Troponin I < 0.012 < 0.012 (0.01-0.034) ng/mL Total Protein 7.1 (6.3-8.2) g/dL Albumin 4.2 (3.5-5.0) g/dL Globulin 2.9 (1.7-4.1) g/dL Albumin/Globulin Ratio 1.4 (1.0-2.8) Lipase 26 (23-300) U/L Imaging Data Chest x-ray: Radiologist's Impression: [address] [id number] ReportSigned Patient: Laya Andrea EMR#: [id number]: 6Acct:[id number]/Sex: 75 / FDate of Service: 07/18/21Loc: EDAccessi on Number: [id number] Procedure: XR chest 1V Ordering Provider: Trevin Canela D.O. PROCEDURE: XR CHEST 1V INDICATIONS: chest pain TECHNIQUE: One view of the chest was acquired. COMPARISON: None. FINDINGS: Surgical changes and devices: None. Lungs and pleura: Lungs are clear. No pleural effusions or pneumothorax. Mediastinum: Mediastinal contours appear normal. Heart size is normal. Bones and chest wall: No suspicious bony lesions. Overlying soft tissues appear unremarkable. IMPRESSION: No acute cardiopulmonary disease process. Dictated by: Rosi Patel MD, PhD on 07/18/2021 at 10:34 Approved by: Rosi Patel MD, PhD on 07/18/2021 at 10:35 ECG Data Attestation: I personally reviewed and interpreted this ECG as follows: Prior ECG tracings: available for review Interpretation: Sinus rhythm Ventricular rate is 70 Normal axis Normal QRS Normal QTC No ST T wave changes MDM Narrative Medical decision making narrative: Chest x-ray is unremarkable, EKG is unremarkable, troponins are negative x2. She received no improvement in symptoms with the nitro/GI panel but did report improvement with the morphine. Discussed with her the risk of ACS. We did discuss admitting her to the hospital for further risk stratification however she stated that she would rather be discharged home and contact her primary doctor. She already is scheduled for an echocardiogram as an outpatient. She understands the risks and benefits this. Will discharge home. She was given strict return precautions. She expressed understanding agreement. Discharge Plan Departure Patient Disposition: Home Clinical Impression: Atypical chest pain Instructions: DI for Atypical Chest Pain Activity Restrictions/Additional Instructions: I do recommend that you contact your primary doctor as you should be considered for a stress test. Continue all of your medications as directed and return to the emergency department for any new or worsening symptoms. Prescriptions: No Action lidocaine 4 % Cream 1 applic topical PRN PRN (Reason: Pain (Scale Score 4-6)) Qty: 0 RF: 0 [STOOL SOFTNER] 1 cap PO HS Qty: 0 RF: 0 Betimol 0.5 % Drops See Rx Instructions .ROUTE .COMPLEX RF: 0 Alphagan P 0.1 % Drops 0.1 % EYE-LEFT DAILY RF: 0 prednisolone acet-gatifloxacin 1-0.5 % Drops,Suspension 1 drp EYE-LEFT BID RF: 0 simvastatin 40 mg Tablet 40 mg DAILY RF: 0 insulin aspart U-100 [Novolog U-100 Insulin aspart] 100 unit/mL Solution See Rx Instructions .ROUTE .COMPLEX RF: 0 Lantus U-100 Insulin 25 units 25 units BID RF: 0 levothyroxine 300 mcg Tablet 300 mcg PO DAILY RF: 0 telmisartan [Micardis] 20 mg Tablet 20 mg DAILY RF: 0 omeprazole 40 mg Capsule,Delayed Release(Dr/Ec) 40 mg PO BEDTIME RF: 0 temazepam 15 mg Capsule 15 mg PO BEDTIME PRN (Reason: Insomnia) RF: 0 latanoprost 0.005 % Drops 1 drp EYE-LEFT DAILY RF: 0 Combigan 0.2-0.5 % Drops 1 drp EYE-LEFT BID RF: 0 metformin 500 mg Tablet 500 mg PO DAILY RF: 0 oxycodone-acetaminophen [Percocet] 5-325 mg tablet 1 tab PO Q4-6H MDD 4 PRN (Reason: pain) Qty: 14 RF: 0 Referrals: Bong Mcarthur MD [Primary Care Provider] -
[2021-07-18 10:12] LABS: Add Manual Diff / Slide Review NO; Basophils Absolute Auto 100 /uL (0-100); Basophils Percent Auto 0.8 % (0-2); Eosinophils Absolute Auto 200 /uL (0-450); Eosinophils Percent Auto 2.1 % (2-4); Hematocrit 38.6 % (36-46); Hemoglobin 12.6 g/dL (12.0-16.0); Lymphocytes Absolute Auto 1500 /uL (1100-4500); Lymphocytes Percent Auto 14.3 % (25-40); Mean Corpuscular HGB Conc 32.6 % (30-36); Mean Corpuscular Volume 85.9 fL (80-100); Monocytes Absolute Auto 600 /uL (0-900); Monocytes Percent Auto 5.6 % (3-14); Neutrophils Absolute Auto 8000 /uL (1500-7000); Neutrophils Percent Auto 77.2 % (50-75); Platelet Count 200 X10^3/uL (150-400); Red Blood Cell Count 4.49 X10^6/uL (4.0-5.2); Red Cell Distribution Width 14.8 % (11.6-14.8); White Blood Cell Count 10.3 X10^3/uL (4.5-11.0)
[2021-07-18] MEDS: NITROGLYCERIN 0.4 MG SL TAB SL (10:14)
[2021-07-18] MEDS: ASPIRIN 81 MG CHEW TAB 324 MG PO (10:14)
[2021-07-18] MEDS: MAG HYDROX/ALUMINUM/SIMETH SUS 20 ML, LIDOCAINE VISCOUS 2% 15 ML PO (10:14)
[2021-07-18 10:26] LABS: Alanine Aminotransferase 28 IU/L (<35); Albumin 4.2 g/dL (3.5-5.0); Albumin Globulin Ratio 1.4 (1.0-2.8); Alkaline Phosphatase 77 U/L (38-126); Aspartate Aminotransferase 30 IU/L (14-36); BUN Creatinine Ratio 31.7 (6-22); Bilirubin Total 0.6 mg/dL (0.2-1.3); Blood Urea Nitrogen 19 mg/dL (7-17); Carbon Dioxide 27 mmol/L (22-32); Chloride 105 mmol/L (98-107); Creatine Kinase 134 U/L (30-135); Estimated Glomerular Filt Rate > 60.0 mL/min (>60); Globulin 2.9 g/dL (1.7-4.1); Glucose 137 mg/dL (80-110); HEMOLYSIS < 15 (0-50); Lipase 26 U/L (23-300); Potassium 4.5 mmol/L (3.4-5.1); Sodium 140 mmol/L (137-145); Total Protein 7.1 g/dL (6.3-8.2)
[2021-07-18 10:37] LABS: Troponin I < 0.012 ng/mL (0.01-0.034)
[2021-07-18 10:41] LABS: CKMB % Relative Index 2.8 % (1.5-5.0); Creatine Kinase MB 3.75 ng/mL (<2.37)
[2021-07-18] MEDS: MORPHINE 4 MG/ML INJ IV (11:18)
[2021-07-18 12:38] LABS: Creatine Kinase 114 U/L (30-135)
[2021-07-18 12:49] LABS: Troponin I < 0.012 ng/mL (0.01-0.034)
[2021-07-18 12:54] LABS: CKMB % Relative Index 2.7 % (1.5-5.0)
== END 2021-07-18 13:47 | disposition home or self-care (01) ==
PROVIDERS: Emergency Provider Emergency Medicine; PCP Internal Medicine
DX: R07.89 Other chest pain (principal)
CPT/HCPCS: 36415; 71045; 80053; 82550; 82553; 83690; 84484; 85025; 93005; 93010; 96374; 99284; J2270

== ENCOUNTER → 2021-08-04 14:19 | Outpatient (CLI) | payer MEDICARE, OTHER, SELFPAY ==
--- NOTE | 2021-08-04 14:36 | DI.ECHO.S_ITS ---
:Reason For Study: Murmur : :Ordering Physician: DOC : :JAYNA Performed By: Vic Donnelly : :Referring: JAYNA ROACH : + + Interpretation Summary The left ventricle is grossly normal size. The ejection fraction is estimated to be 60-65%. Diastolic parameters suggest a pseudonormalization pattern, consistent with probable elevated filling pressures. The right ventricle is normal in size and function. The left atrium is severely dilated. There is moderate mitral annular calcification. Heavy posterior mitral annulus calcification. There is some restriction of mitral leaflets movement. The mean gradient about 6 mmHg. Morphologically mild mitral stenosis without any critical mitral stenosis. Heavy calcification of noncoronary cusp. The aortic valve mean gradient is 22 mmHg. The calculated aortic valve area is 1.4 cm2. The peak aortic velocity is 3 m/sec. The peak aortic velocity on the previous exam was 2.18 m/sec. There is moderate aortic stenosis. Compared to the prior echo study, there has been an increase in the severity of aortic stenosis. Procedure: A two-dimensional transthoracic echocardiogram with color flow and Doppler was performed. The study quality was technically adequate. Comparison is made with the echocardiogram of 04/02/2015. The patient was in normal sinus rhythm during the exam. Left Ventricle: The left ventricle is grossly normal size. Left ventricular wall thickness is borderline increased. There is no thrombus. Left ventricular systolic function is normal. The ejection fraction is estimated to be 60-65%. There are no focal wall motion abnormalities. Diastolic parameters suggest a pseudonormalization pattern, consistent with probable elevated filling pressures. Right Ventricle: The right ventricle is normal in size and function. Atria: The left atrium is severely dilated. The left atrium has significantly increased in size since the prior echo exam. Right atrial size is normal. There is no Doppler evidence for an interatrial shunt. Mitral Valve: There is moderate mitral annular calcification. Heavy posterior mitral annulus calcification. There is some restriction of mitral leaflets movement. The mean gradient about 6 mmHg. Morphologically mild mitral stenosis without any critical mitral stenosis. The mitral valve mean gradient is 6 mmHg. There is trace mitral regurgitation. Aortic Valve: The aortic valve is moderately calcified. The aortic valve is not well visualized. Heavy calcification of noncoronary cusp. There is moderate aortic stenosis. The calculated aortic valve area is 1.4 cm2. The peak aortic velocity on the previous exam was 2.18 m/sec. The aortic valve mean gradient is 22 mmHg. The peak aortic velocity is 3 m/sec. Compared to the prior echo study, there has been an increase in the severity of aortic stenosis. No aortic regurgitation is present. Tricuspid Valve: The tricuspid valve is normal in structure and function. Pulmonary artery pressures cannot be estimated because of the lack of a measurable TR jet velocity but the IVC suggests a CVP of around 8 mmHg. There is trace tricuspid regurgitation. Pulmonic Valve: The pulmonic valve is not well seen, but is grossly normal. There is no pulmonic valvular regurgitation. Great Vessels: The aortic root is normal size. The dimensions of the ascending aorta are normal. The IVC is dilated (diameter is greater than 2.1 cm) yet it collapses greater than 50% with a sniff. This suggests a right atrial pressure of 8 mm Hg. Pericardium/ Pleura There is no pericardial effusion. There is no pleural effusion. MMode/2D Measurements & Calculations LVIDd: 5.0 cm LVOT diam: 2.0 cm LVIDs: 3.5 cm Ao root diam: 2.5 cm FS: 30.0 % asc Aorta Diam: 3.1 cm IVSd: 1.1 cm LVPWd: 1.1 cm LV pineda. diameter/BSA (cm/m^2): 2.4 LV sys. diameter/BSA (cm/m^2): 1.7 LA dimension: 4.5 cm RA long axis: 5.5 cm LA A2 area: 22.4 cm2 IVC diam: 2.3 cm LA A4 area: 24.0 cm2 LA length (vol): 6.0 cm LA vol: 76.1 ml LA vol index: 36.5 ml/m2 TAPSE_phl: 3.7 cm Doppler Measurements & Calculations Ao V2 max: 301.0 cm/sec LVOT Max Phuc: 137.0 cm/sec Ao V2 mean: 219.0 cm/sec LV V1 max P.5 mmHg Ao max P.0 mmHg LV V1 VTI: 32.8 cm Ao mean P.5 mmHg LORIN(I,D): 1.4 cm2 Ao V2 VTI: 73.8 cm LORIN(V,D): 1.4 cm2 sev ratio: 0.44 LORIN indexed to BSA (cm^2/m^2): 0.67 MV E max phuc: 160.0 cm/sec MV V2 mean: 121.0 cm/sec MV A max phuc: 137.0 cm/sec MV mean P.0 mmHg MV E/A: 1.2 MV V2 VTI: 50.3 cm Med Peak E' Phuc: 6.6 cm/sec E/E' med: 24.3 Lat Peak E' Phuc: 9.7 cm/sec E/E' lat: 16.5 E/e' average: 20.4 MV dec time: 0.34 sec MVA(VTI): 2.0 cm2 SV(LVOT): 103.0 ml AV VR_phl: 0.46 LORIN(VTI)/BSA_phl: 0.67 MV P1/2t-pr_phl: 99.0 msec Reading Physician:06:35 PM
== END ==
PROVIDERS: PCP Internal Medicine; Referring Provider Internal Medicine; Visit Provider Internal Medicine
DX: R01.1 Cardiac murmur, unspecified (principal); I08.0 Rheumatic disorders of both mitral and aortic valves; R06.00 Dyspnea, unspecified
CPT/HCPCS: 93306

== ENCOUNTER 2021-11-07 14:16 | Outpatient (RCR) | payer MEDICARE, OTHER, SELFPAY ==
--- NOTE | 2021-11-07 16:44 | ST.OPIE ---
Visit Care Team Role Provider Type Bong Mcarthur MD Family Provider Non-Staff Primary Care Provider Specialty: Internal Medicine Address: [address] [place], [address] Email: Mayela Sullivan DO Attending Provider Physician Referring Provider Specialty: Internal Medicine Address: [address] [place] [address], [id number] Email: [email or web address] Speech-Language Pathology Initial Evaluation RUBBER CHEMIST Clinical Swallow Evaluation Start: 11/07/21 14:43 Freq: Status: Active Protocol: Document 11/07/21 14:44 MAJOR (Rec: 11/07/21 15:40 MAJOR [id number]) Clinical Swallow Evaluation Session Time Visit Start Time 14:30 Visit Stop Time 15:35 Total Visit Minutes 65 Visit Information Visit Number Initial Evaluation Plan of Care Dates 11/07/21 - 02/05/22 Insurance Information Medicare Referral Referring Provider Dr. Mayela Sullivan Reason for Referral Dysphagia Setting Assessment Location Outpatient Care Visit Type Note Type Initial evaluation Next Note Type Next Note Type Treatment Note Patient Information Identification Type Name,ID Card History The pt is a 76-yr-old female who goes by the name Kelsie and is familiar to this clinician from previous Speech Therapy targeting dysphonia and dysphagia, including stridor. She was last seen by this Clinician in 2017. The pt attended today d/t frequent occurrences of choking, particularly with lettuce, meat if not cut into small pieces, and large pills. Liquids can be problematic if too much is taken at once or it is too cold. Coughing worsens if her head is in anything but neutral position. Swallowing is generally very effortful. Barium Swallow Study was done 03/16 with finding of hiatal hernia. Study was stopped d/t pt coughing. The pt has a complex medical history. 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 Endoscopic examination has revealed subsequent scar tissue is not impinging upon the esophagus, nor was the esophagus negatively impacted by radiation. However, a knot of scar tissue can be felt where the trach had been. The pt reported that, after havng the trach removed, she underwent periodic removal of internal scar tissue with pie cuts in order to assist her breathing. The last of these was done in 2018, and the pt wonders if doing this again might help her maintain breath support when eating. 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 She hopes to have this removed surgically next month. She is being followed by Oncology and Dermatology. She is also followed by Cardiology for 2 heart murmurs and aortic stenosis. Pulmonolgy also follows the pt, who reported that her last PFT was not good. She is scheduled to see a thoracic surgeon in early 2021 to assess her heart and throat. 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 Because of vision deficits, the pt does not drive and is reliant on her , who has his own significant health issues. Subjective Observations Pt arrived on time and provided case history. Reported by Patient Current Diet Regular,Chopped,Thin liquids Baseline Feeding Method Independent in self-feeding Objective Assessment Mental Status Alert,Responsive,Cooperative Oral Integrity WFL Dentition Missing teeth,Decay Lip Function Mild impairment Observation of Lips at Rest Symmetrical Pucker Reduced range of motion, Reduced strength Lip Retraction Within normal limits Alternating Pucker/Lip Retraction Reduced range of motion Tongue Function Mild impairment Observations of Tongue at Rest Within normal limits Tongue Protrusion Within normal limits Tongue Lateralization Reduced strength Jaw Function Within normal limits Observations of Jaw at Rest Within normal limits Jaw Opening Within normal limits Jaw Closing Within normal limits Jaw Lateralization Within normal limits Hard/Soft Palate Function Within normal limits Observations of Hard/Soft Palate Within normal limits Nasality Within normal limits Phonation Breathy,Strained/Strangled, Reduced loudness Respiratory Sufficiency Mild impairment Comment Inspiratory stridor was frequently audible, which was present in 2018 when the pt was last seen by this clinician, as was breathy and strained vocal quality. Food and Liquid Trials Position During Assessment Upright (90 degrees) Liquids Trialed Thin Solids Trialed Puree,Mechanical Soft Administration Type Cup single sip,Controlled cup sip,Self-feeding Pharyngeal Impairment Moderately impaired Fatigue/Endurance Mild fatigue Comment Pt required 2 swallows per liquid bolus and exhibited significant effort to initiated a/p propulsion and pharyngeal swallow. Pt reported peaches stuck in throat x2, both episodes requiring multiple sips of water to clear. No coughing or change in vocal quality was observed. Response/Comments Head in neutral position. Pt reports increased difficulty with head tilted/turned in any way. Pt naturally performs effortful swallow, which was necessary both to transport all boluses from oral to pharyngeal cavities and from pharynx to esophagus. Findings Swallowing Function Oropharyngeal phase dysphagia Severity of Swallow Impairment Moderately impaired Contributing Factors to Swallow Mastication inefficiency, Impairment Impaired oral-pharyngeal transport,Delayed swallow initiation,Reduced laryngeal excursion,Impaired airway protection Prognosis Good Based on Cognitive status,Family support Comment The pt presents with moderate oropharyngeal dysphagia characterized by reduced a/p transit and swallow initiation, and pharyngeal residue requiring multiple swallows and liquid wash to clear. Dysphagia is likely due to generalized muscular weakness and reduced ROM possibly resulting from radiation effects, aging, and/or comorbidities. Instrumental evaluation is necessary to more effectively assess function, determine risk of aspiration, and to guide POC. Orders are requested for a Modified Barium Swallow Study. The pt was informed of this recommendation and in agreement. Impact on Safety and Functioning Risk for aspiration Recommendations Instrumental Assessment Yes Swallowing Treatment Yes Frequency To be determined following MBSS Recommended Solids Dysphagia Mechanical Recommended Liquids Thin Other Recommendations Pills in carrier Safety Precautions/Swallowing Reduce distractions,Remain Recommendations upright (90 degrees) during all oral intake,Upright position at least 30 minutes after meals,Small bites and sips when eating,Slow rate; swallow between bites,Multiple swallows Medication Recommendations Whole in Carrier Education Patient/Caregiver Education Described results of evaluation,Patient expressed understanding of evaluation, Patient expressed agreement with goals & treatment plans, Patient expressed understanding of safety precautions,Patient expressed understanding of feeding recommendations Goals Short-term Goals 1. The pt will participate in Modified Barium Swallow Study for further evaluation of swallow to determine aspiration risk and guide POC. 2. The pt will follow safe swallow strategies independently to reduce risk of aspiration. Long-term Goals 1. The pt will tolerate least restrictive diet to meet her nutrition and hydration needs. Additional goals may be added pending MBSS results.
--- NOTE | 2022-05-31 15:50 | ST.IPDYTX ---
Visit Care Team Role Provider Type Bong Mcarthur MD Family Provider Non-Staff Primary Care Provider Specialty: Internal Medicine Address: [address] [place], [address] Email: Mayela Sullivan DO Attending Provider Physician Referring Provider Specialty: Internal Medicine Address: [address] [place] [address], [id number] Email: [email or web address] [facility] Dysphagia [facility] Start: 11/07/21 14:43 Freq: Status: Active Protocol: Document 05/31/22 15:47 MAJOR (Rec: 05/31/22 15:47 MAJOR [id number]) Dysphagia Treatment Setting Assessment Location Outpatient Care Visit Type Note Type Discharge Summary Patient Information Subjective Observations This pt was seen for evaluation on 11/07/21 at which time MBSS was recommended. No record of MBSS since then is found in [facility] medical records and the pt has not pursued ongoing therapy. She is discharged from services. Treatment Plan Dysphagia Goals 1. The pt will participate in Modified Barium Swallow Study for further evaluation of swallow to determine aspiration risk and guide POC. 2. The pt will follow safe swallow strategies independently to reduce risk of aspiration. 3. The pt will tolerate least restrictive diet to meet her nutrition and hydration needs.
== END 2022-06-07 12:51 ==
LOC: SP 14:16
PROVIDERS: Family Provider Internal Medicine; PCP Internal Medicine; Referring Provider Student in an Organized Health Care Education/Training Program; Visit Provider Student in an Organized Health Care Education/Training Program
DX: R13.12 Dysphagia, oropharyngeal phase (principal); Z85.79 Personal history of other malignant neoplasms of lymphoid, hematopoietic and related tissues; R93.5 Abnormal findings on diagnostic imaging of other abdominal regions, including retroperitoneum; Z92.3 Personal history of irradiation; R13.10 Dysphagia, unspecified
CPT/HCPCS: 92610

== ENCOUNTER → 2021-12-15 10:43 | Outpatient (CLI) | payer OTHER, SELFPAY ==
--- NOTE | 2021-12-15 | DI.MG.S_ITS ---
BILATERAL DIGITAL SCREENING MAMMOGRAM 3D/2D WITH CAD: 12/15/2021 CLINICAL: Routine screening. Family history of breast cancer. Comparison is made to exams dated: 10/12/2020 mammogram, 10/09/2019 mammogram, and 10/02/2018 mammogram - [facility]. The tissue of both breasts is heterogeneously dense. This may lower the sensitivity of mammography. Current study was also evaluated with a Computer Aided Detection (CAD) system. There are benign vascular calcifications in both breasts. No significant masses, calcifications, or other findings are seen in either breast. There has been no significant interval change. IMPRESSION: BENIGN There is no mammographic evidence of malignancy. A 1 year screening mammogram is recommended. This exam was interpreted at Station ID: [id number]. NOTE: For mammograms, a report in lay terms will be sent to the patient. Approximately 15% of breast malignancies will not be visualized mammographically. In the management of a palpable breast mass, a negative mammogram must not discourage biopsy of a clinically suspicious lesion. Electronically Signed By: Manjeet holt/joseph:12/15/2021 14:08:27 copy to: ARIA NAIDU letter sent: Normal Exam ACR BI-RADS Category 2: Benign Finding(s) 3342F
== END ==
PROVIDERS: Family Provider Internal Medicine; PCP Internal Medicine; Referring Provider Internal Medicine; Visit Provider Internal Medicine
DX: Z12.31 Encounter for screening mammogram for malignant neoplasm of breast (principal)
CPT/HCPCS: 77063; 77067

== ENCOUNTER 2021-12-26 18:09 | Emergency (ER) | payer OTHER, SELFPAY ==
[2021-12-26 18:14] VITALS: BP 161/69; PULSE 76; RESP 22; TEMP 36.4; O2SAT 98; BMI 42.7
--- NOTE | 2021-12-26 21:31 | DI.RAD.S_ITS ---
PROCEDURE: XR TOE LT MIN 2V INDICATIONS: pain, redness, swelling, infection, osteo? TECHNIQUE: 3 views of the 1st toe(s) acquired. COMPARISON: [facility], , TOE MINIMUM 2 VIEWS LEFT, 08/05/2015, 23:30. FINDINGS: Bones: There are areas lucency and deformity at the tuft of the 1st digit. Soft tissues: No suspicious soft tissue densities. Prominent 1st digit soft tissue edema is present. IMPRESSION: Lucency and mild deformity of the tuft of the distal 1st phalanx with marked soft tissue edema concerning for development of osteomyelitis. Dictated by: Echo Zaman M.D. on 12/26/2021 at 22:11 Approved by: Echo Zaman M.D. on 12/26/2021 at 22:12
--- NOTE | 2021-12-26 21:58 | ED_ITS ---
HPI - Extremity Problem General Chief complaint: Extremity Problem,Nontraumatic Stated complaint: Infection in Lt Foot, Big Toe Time Seen by Provider: 12/26/21 21:31 Source: patient Mode of arrival: Ambulatory History of Present Illness HPI Narrative: 76-year-old female nonsmoker with history of diabetes and neuropathy presents with a chief complaint of a painful, red swollen left great toe. She states she is unsure how long it has been this way but states she just noticed it with her field operations supervisor today. She denies any systemic findings such as fever, chills nor nausea or vomiting. She denies any known trauma or injury. She states that she was seen by her field operations supervisor today who upon evaluating her toe recommended she come to the emergency department for further evaluation. She denies dizziness, weakness or lightheadedness Related Data Home Medications Medication Instructions Recorded Confirmed lidocaine 4 % topical cream 1 applic TOPICAL PRN PRN #0 06/21/16 06/08/21 [STOOL SOFTNER] 1 cap PO HS #0 01/11/18 06/08/21 timolol 0.5 % eye drops (Betimol) See Rx Instructions .ROUTE .COMPLEX 06/11/18 06/08/21 Lantus U-100 Insulin 25 units BID 10/01/18 06/08/21 brimonidine 0.1 % eye drops 0.1 % EYE-LEFT DAILY 10/01/18 06/08/21 (Alphagan P) insulin aspart U-100 100 unit/mL See Rx Instructions .ROUTE .COMPLEX 10/01/18 06/08/21 subcutaneous solution (Novolog U-100 Insulin aspart) levothyroxine 300 mcg tablet 300 mcg PO DAILY 10/01/18 06/08/21 omeprazole 40 mg capsule,delayed 40 mg PO BEDTIME 10/01/18 06/08/21 release prednisolone 1 %-gatifloxacin 0.5 1 drp EYE-LEFT BID 10/01/18 06/08/21 % eye drops,suspension simvastatin 40 mg tablet 40 mg DAILY 10/01/18 06/08/21 telmisartan 20 mg tablet (Micardis) 20 mg DAILY 10/01/18 06/08/21 metformin 500 mg tablet 500 mg PO DAILY 11/13/18 06/08/21 brimonidine 0.2 %-timolol 0.5 % 1 drp EYE-LEFT BID 03/31/19 06/08/21 eye drops (Combigan) latanoprost 0.005 % eye drops 1 drp EYE-LEFT DAILY 03/31/19 06/08/21 temazepam 15 mg capsule 15 mg PO BEDTIME PRN 06/08/21 06/08/21 Previous Rx's Medication Instructions Recorded oxycodone-acetaminophen 5 mg-325 1 tab PO Q4-6H PRN #14 tab MDD 4 11/13/18 mg tablet (Percocet) amoxicillin 875 mg-potassium 1 tab PO BID #20 tab 12/26/21 clavulanate 125 mg tablet (Augmentin) Allergies Allergy/AdvReac Type Severity Reaction Status Date / Time adhesive tape [ADHESIVE TAPE] Allergy Mild BLISTERS Verified 12/26/21 18:18 gabapentin AdvReac Severe SWELLING Verified 12/26/21 18:18 THROAT codeine AdvReac Intermediate HALLUCINATI Verified 12/26/21 18:18 ONS Review of Systems Review of Systems Narrative: GENERAL: Denies chills, fatigue, malaise, fever, sweats. HEENT: Denies sinus pain, ear pain, sore throat, difficulty swallowing, dizz iness. RESPIRATORY: Denies dyspnea, cough, wheezing, hemoptysis, sputum. CARDIOVASCULAR: Denies chest pain, palpitations, orthopnea, edema, GASTROINTESTINAL: Denies nausea, vomiting, abdominal pain, diarrhea, constipation, melena. : Denies dysuria, frequency, incontinence, hematuria, urinary retention. MUSCULOSKELETAL: denies weakness, joint pain, or bony pain SKIN: see HPI NEUROLOGIC: Denies weakness, headache, numbness, change in speech, confusion, seizures, incoordination. PSYCHIATRIC: No concerning psychosocial issues. 12 point review of systems is negative except for those stated above Patient History Medical History Arthritis Bowel obstruction Colon cancer Constipation Diabetes Frequent headaches GERD (gastroesophageal reflux disease) Glaucoma History of PFTs HTN (hypertension) Hyperlipidemia Hypothyroidism Joint pain Murmur, heart Port-A-Cath in place (04/06/15) Radiation adverse effect Sarcoidosis Tracheal stenosis Vision changes Surgical History History of biopsy History of bone marrow biopsy History of bronchoscopy History of section Hx of eye surgery Hx of hernia repair Hx of tracheostomy S/p bilateral carpal tunnel release Social History marital status: household members: spouse occupational status: previously employed Smoking Status: Never smoker alcohol intake: never Smoking Status: Never smoker alcohol intake frequency: holidays/special occasions only Substance Use Type: does not use Exam Narrative Exam Narrative: GENERAL: [76] year old patient appears stated age. Well-developed patient, in mild distress. HEAD: Atraumatic. Normocephalic. EYES: Pupils equal round and reactive. Extraocular motions intact. No scleral icterus. No injection or drainage. ENT: Nose without bleeding, purulent drainage. Throat without erythema, tonsillar hypertrophy or exudate. Airway patent. NECK: Trachea midline. Non tender CARDIOVASCULAR: Regular rate and rhythm without murmurs, gallops, or rubs. RESPIRATORY: Clear to auscultation. Breath sounds equal bilaterally. No wheezes, rales, or rhonchi. GASTROINTESTINAL: Abdomen soft, non-tender, nondistended. EXTREMITIES: L great toe impressively edemetous with erythema. No crepitance and blackened/purple skin. Decreased sensation. Callous on bottom of toe with cracks. No obvoius drainage to culture. Minimal erythema extending to foot. No lymphangitis. BACK: Nontender without deformity or crepitance. No flank tenderness. NEURO: AOx3. SKIN: Otherwise no rash or erythema of visible areas Initial Vital Signs Initial Vital Signs: Vital Signs Temperature 97.6 F 12/26/21 18:14 Pulse Rate 76 12/26/21 18:14 Respiratory Rate 22 12/26/21 18:14 Blood Pressure 161/69 H 12/26/21 18:14 Pulse Oximetry 98 12/26/21 18:14 Course Orders Ordered: Discontinued Medications Amoxicillin/Clavulanate Potassium (Amoxicillin/Clav 875/125 Mg) 1 tab PO NOW ONE Stop: 12/26/21 23:36 Last Admin: 12/26/21 23:50 Dose: 1 tab Documented by: ATAYLOR Consultations Consultation #1: discussed with ortho. No need for immediate intervention or admission for chronic osteo and no systemic complaints. Recommends ABX, D/C with follow up at podiatry or their office (Lonnie Brito) Vital Signs Vital signs: Vital Signs - 8 hr 12/26/21 18:14 Temperature 97.6 F Pulse Rate 76 Respiratory Rate 22 Blood Pressure 161/69 H Pulse Oximetry 98 MDM - Extremity (Nontraumatic) Lab Data Result diagrams: 12/26/21 21:57 12/26/21 21:57 Labs: Lab Results 12/26/21 12/26/21 Range/Units 21:57 21:57 WBC 11.3 H (4.5-11.0) X10^3/uL RBC 4.06 (4.0-5.2) X10^6/uL Hgb 11.4 L (12.0-16.0) g/dL Hct 34.6 L (36-46) % MCV 85.1 (80-100) fL MCH 28.1 (26-34) PG MCHC 33.0 (30-36) % RDW 15.9 H (11.6-14.8) % Plt Count 185 (150-400) X10^3/uL Neut % (Auto) 80.4 H (50-75) % Lymph % (Auto) 8.0 L (25-40) % Page % (Auto) 7.5 (3-14) % Eos % (Auto) 1.9 L (2-4) % Baso % (Auto) 2.2 H (0-2) % Neut # (Auto) 9100 H (6635-7264) /uL Lymph # (Auto) 900 L (7847-5598) /uL Page # (Auto) 900 (0-900) /uL Eos # (Auto) 200 (0-450) /uL Baso # (Auto) 200 H (0-100) /uL ESR 65 H (0-20) MM/HR Sodium 137 (137-145) mmol/L Potassium 4.1 (3.4-5.1) mmol/L Chloride 103 (98-107) mmol/L Carbon Dioxide 30 (22-32) mmol/L BUN 13 (7-17) mg/dL Creatinine 0.67 (0.52-1.04) mg/dL Estimated GFR > 60.0 (>60) mL/min BUN/Creatinine Ratio 19.4 (6-22) Glucose 202 H (80-110) mg/dL Calcium 9.1 (8.4-10.2) mg/dL Total Bilirubin 0.8 (0.2-1.3) mg/dL AST 22 (14-36) IU/L ALT 17 (<35) IU/L Alkaline Phosphatase 72 (38-126) U/L C-Reactive Protein 5.1 H (<1.0) mg/dL Total Protein 7.5 (6.3-8.2) g/dL Albumin 4.0 (3.5-5.0) g/dL Globulin 3.5 (1.7-4.1) g/dL Albumin/Globulin Ratio 1.1 (1.0-2.8) Imaging Data Extremity x-ray #1: Radiologist's Impression: [address] [address] XRay Report Signed Patient: Laya Andrea MR#: [id number] : 1945 Acct:[id number] Age/Sex: 76 / F Date of Service: 12/26/21 Loc: ED Accession Number: [id number] ?? Procedure: XR toe LT min 2V Ordering Provider: Len Velasquez D.O. PROCEDURE:? XR TOE LT MIN 2V ? INDICATIONS:? pain, redness, swelling, infection, osteo? ? TECHNIQUE:? 3 views of the 1st toe(s) acquired.? ? COMPARISON:? [facility], , TOE MINIMUM 2 VIEWS LEFT, 08/05/2015, 23:30. ? FINDINGS:? ? Bones:? There are areas lucency and deformity at the tuft of the 1st digit. ? Soft tissues:? No suspicious soft tissue densities.? Prominent 1st digit soft tissue edema is present. ? IMPRESSION:? Lucency and mild deformity of the tuft of the distal 1st phalanx with marked soft tissue edema concerning for development of osteomyelitis. ? ? Dictated by: Echo Zaman M.D. on 12/26/2021 at 22:11 ? ? Approved by: Echo Zaman M.D. on 12/26/2021 at 22:12 MDM Narrative Medical decision making narrative: 76-year-old female diabetic with neuropathy presents with pain, swelling, redness and concern for osteomyelitis. She has no systemic findings and denies any new injury. X-ray demonstrates probable osteomyelitis. No drainage or abscess noted. Return precautions and questions have been answered to her apparent satisfaction. Discharge Plan Departure Patient Disposition: Home Clinical Impression: Osteomyelitis of great toe of left foot Instructions: DI for Osteomyelitis Activity Restrictions/Additional Instructions: *You have been diagnosed with [osteomyelitis of the left great toe] *What to do: *Please continue to take your regular medications as directed. [ x] New medication prescriptions sent to your pharmacy: [ [facility]] [ ] New medication written as a paper prescription [ ] No new medications given *Please follow up with your Blood Bank Laboratory Technologist in 2-3 days, call for an appointment. Let them know you were seen in the Emergency Department and that we ask that you be seen in follow up. We will electronically transmit a record of today's note if your PCP is in our system Also, as we discussed we will send a referral to wound care on your behalf *If you do not have a primary care provider please contact the [facility] Resource line at [phone]. They will ask some questions about your medical history and help get you set up with a doctor in the community. *Return to Emergency Department if you should have any new, worsening or concerning symptoms, such as [fever greater than 101 F, shaking chills, worsening pain, persistent vomiting or other bothersome symptoms] Prescriptions: New amoxicillin-pot clavulanate [Augmentin] 875-125 mg tablet 1 tab PO BID Qty: 20 0RF No Action lidocaine 4 % Cream 1 applic topical PRN PRN (Reason: Pain (Scale Score 4-6)) Qty: 0 0RF [STOOL SOFTNER] 1 cap PO HS Qty: 0 0RF Betimol 0.5 % Drops See Rx Instructions .ROUTE .COMPLEX 0RF Rx Instructions: Instill 1 drop by ophthalmic route 2 times every day into right eye Alphagan P 0.1 % Drops 0.1 % EYE-LEFT DAILY 0RF prednisolone acet-gatifloxacin 1-0.5 % Drops,Suspension 1 drp EYE-LEFT BID 0RF simvastatin 40 mg Tablet 40 mg DAILY 0RF insulin aspart U-100 [Novolog U-100 Insulin aspart] 100 unit/mL Solution See Rx Instructions .ROUTE .COMPLEX 0RF Label Comments: pt taking 10 units am 14 units noon 10 units hs Rx Instructions: 10 units 14 units noon 10 units hs per pt PER SLIDING SCALE Lantus U-100 Insulin 25 units 25 units BID 0RF levothyroxine 300 mcg Tablet 300 mcg PO DAILY 0RF telmisartan [Micardis] 20 mg Tablet 20 mg DAILY 0RF omeprazole 40 mg Capsule,Delayed Release(Dr/Ec) 40 mg PO BEDTIME 0RF temazepam 15 mg Capsule 15 mg PO BEDTIME PRN (Reason: Insomnia) 0RF latanoprost 0.005 % Drops 1 drp EYE-LEFT DAILY 0RF Combigan 0.2-0.5 % Drops 1 drp EYE-LEFT BID 0RF metformin 500 mg Tablet 500 mg PO DAILY 0RF oxycodone-acetaminophen [Percocet] 5-325 mg tablet 1 tab PO Q4-6H MDD 4 PRN (Reason: pain) Qty: 14 0RF Referrals: Bong Mcarthur MD [Primary Care Provider] - Logan Mcfarland MD [Physician] - Ramón Oshea MD [Physician] -
[2021-12-26 22:16] LABS: Add Manual Diff / Slide Review NO; Basophils Absolute Auto 200 /uL (0-100); Basophils Percent Auto 2.2 % (0-2); Eosinophils Absolute Auto 200 /uL (0-450); Eosinophils Percent Auto 1.9 % (2-4); Hematocrit 34.6 % (36-46); Hemoglobin 11.4 g/dL (12.0-16.0); Lymphocytes Absolute Auto 900 /uL (1100-4500); Mean Corpuscular Hemoglobin 28.1 PG (26-34); Mean Corpuscular Volume 85.1 fL (80-100); Monocytes Absolute Auto 900 /uL (0-900); Monocytes Percent Auto 7.5 % (3-14); Neutrophils Absolute Auto 9100 /uL (1500-7000); Neutrophils Percent Auto 80.4 % (50-75); Platelet Count 185 X10^3/uL (150-400); Red Blood Cell Count 4.06 X10^6/uL (4.0-5.2); Red Cell Distribution Width 15.9 % (11.6-14.8); White Blood Cell Count 11.3 X10^3/uL (4.5-11.0)
[2021-12-26 22:17] LABS: Alanine Aminotransferase 17 IU/L (<35); Albumin Globulin Ratio 1.1 (1.0-2.8); Alkaline Phosphatase 72 U/L (38-126); Aspartate Aminotransferase 22 IU/L (14-36); BUN Creatinine Ratio 19.4 (6-22); Bilirubin Total 0.8 mg/dL (0.2-1.3); Blood Urea Nitrogen 13 mg/dL (7-17); C-Reactive Protein Quant 5.1 mg/dL (<1.0); Calcium 9.1 mg/dL (8.4-10.2); Carbon Dioxide 30 mmol/L (22-32); Chloride 103 mmol/L (98-107); Estimated Glomerular Filt Rate > 60.0 mL/min (>60); Globulin 3.5 g/dL (1.7-4.1); Glucose 202 mg/dL (80-110); HEMOLYSIS < 15 (0-50); Potassium 4.1 mmol/L (3.4-5.1); Sodium 137 mmol/L (137-145); Total Protein 7.5 g/dL (6.3-8.2)
[2021-12-26 22:40] LABS: Erythrocyte Sedimentation Rate 65 MM/HR (0-20)
[2021-12-26] MEDS: AMOXICILLIN/CLAV 875/125 MG 1 TAB PO (23:50)
[2021-12-27 00:10] VITALS: BP 163/79; PULSE 75; RESP 20; O2SAT 99
== END 2021-12-27 00:10 | disposition home or self-care (01) ==
PROVIDERS: Emergency Provider Emergency Medicine; Family Provider Internal Medicine; PCP Internal Medicine
DX: M86.172 Other acute osteomyelitis, left ankle and foot (principal)
CPT/HCPCS: 36415; 73660; 80053; 85025; 85651; 86140; 99283; 99284

== ENCOUNTER → 2022-01-03 10:28 | Outpatient (CLI) | payer OTHER, MEDICARE, SELFPAY | PROVIDERS: PCP Internal Medicine; Referring Provider Podiatrist; Visit Provider Family Medicine | DX: E11.621 Type 2 diabetes mellitus with foot ulcer (principal); L97.526 Non-pressure chronic ulcer of other part of left foot with bone involvement without evidence of necrosis; L08.89 Other specified local infections of the skin and subcutaneous tissue; E11.69 Type 2 diabetes mellitus with other specified complication; M86.172 Other acute osteomyelitis, left ankle and foot; L84 Corns and callosities; E11.40 Type 2 diabetes mellitus with diabetic neuropathy, unspecified; Z79.84 Long term (current) use of oral hypoglycemic drugs; Z79.4 Long term (current) use of insulin; L08.9 Local infection of the skin and subcutaneous tissue, unspecified | CPT/HCPCS: 11042; 36415; 80053; 85025; 85651; 86140; 87070; 87075; 87076; 87077; 87205; 93922; 99204; 99214 ==

== ENCOUNTER → 2022-01-03 12:31 | Outpatient (CLI) | payer OTHER, SELFPAY ==
[2022-01-03 12:56] LABS: Add Manual Diff / Slide Review NO; Basophils Absolute Auto 100 /uL (0-100); Basophils Percent Auto 0.9 % (0-2); Eosinophils Absolute Auto 200 /uL (0-450); Eosinophils Percent Auto 2.3 % (2-4); Hematocrit 35.1 % (36-46); Hemoglobin 11.6 g/dL (12.0-16.0); Lymphocytes Absolute Auto 1400 /uL (1100-4500); Lymphocytes Percent Auto 16.7 % (25-40); Mean Corpuscular HGB Conc 32.9 % (30-36); Mean Corpuscular Hemoglobin 27.9 PG (26-34); Mean Corpuscular Volume 84.9 fL (80-100); Monocytes Absolute Auto 500 /uL (0-900); Monocytes Percent Auto 6.5 % (3-14); Neutrophils Absolute Auto 6100 /uL (1500-7000); Neutrophils Percent Auto 73.6 % (50-75); Platelet Count 321 X10^3/uL (150-400); Red Blood Cell Count 4.14 X10^6/uL (4.0-5.2); Red Cell Distribution Width 15.4 % (11.6-14.8); White Blood Cell Count 8.3 X10^3/uL (4.5-11.0)
[2022-01-03 13:33] LABS: Erythrocyte Sedimentation Rate > 140 MM/HR (0-20)
[2022-01-03 14:02] LABS: Alanine Aminotransferase 25 IU/L (<35); Albumin 3.8 g/dL (3.5-5.0); Albumin Globulin Ratio 1.1 (1.0-2.8); Alkaline Phosphatase 81 U/L (38-126); Aspartate Aminotransferase 27 IU/L (14-36); BUN Creatinine Ratio 14.7 (6-22); Bilirubin Total 0.4 mg/dL (0.2-1.3); Blood Urea Nitrogen 10 mg/dL (7-17); C-Reactive Protein Quant 4.8 mg/dL (<1.0); Calcium 9.2 mg/dL (8.4-10.2); Carbon Dioxide 30 mmol/L (22-32); Chloride 102 mmol/L (98-107); Estimated Glomerular Filt Rate > 60.0 mL/min (>60); Globulin 3.5 g/dL (1.7-4.1); Glucose 180 mg/dL (80-110); HEMOLYSIS < 15 (0-50); Potassium 4.5 mmol/L (3.4-5.1); Sodium 140 mmol/L (137-145); Total Protein 7.3 g/dL (6.3-8.2)
== END ==
PROVIDERS: Family Provider Internal Medicine; PCP Internal Medicine; Referring Provider Family Medicine; Visit Provider Family Medicine
DX: L08.9 Local infection of the skin and subcutaneous tissue, unspecified (principal)
CPT/HCPCS: 36415; 80053; 85025; 85651; 86140

== ENCOUNTER → 2022-01-10 10:35 | Outpatient (CLI) | payer OTHER, SELFPAY ==
[2022-01-10 12:03] LABS: COVID19 -Nasal RAPID Negative (Negative)
== END ==
PROVIDERS: Family Provider Internal Medicine; PCP Internal Medicine; Visit Provider Family Medicine Sleep Medicine
DX: Z20.822 Contact with and (suspected) exposure to COVID-19 (principal)
CPT/HCPCS: 87635

== ENCOUNTER → 2022-01-10 13:57 | Outpatient (CLI) | payer OTHER, SELFPAY ==
--- NOTE | 2022-01-11 11:48 | PM.TREADMILL ---
Cardiac Stress Test Report Referral & Results Date Patient Seen: 01/11/22 Time Patient Seen: 11:48 Requesting provider: Elaina Hu Indication: Dyspnea Rest ECG: Sinus rhythm with borderline RBBB Procedure Note: After Lexiscan injection had minimal dyspnea with no chest discomfort No significant ST changes after Lexiscan injection No ectopy Impression: Normal Lexiscan stress test Please note: Actual ECG tracings can be found in the PACS system.
--- NOTE | 2022-01-11 19:49 | DI.NM.S_ITS ---
DATE OF SERVICE: 01/10/2022 PROCEDURE PERFORMED: Pharmacologic vasodilator stress and rest myocardial perfusion imaging with gating to assess ejection fraction and regional wall motion. ORDERING PROVIDER: Dr. Art Hu. INDICATIONS: The patient is a 76-year-old morbidly obese female with exertional dyspnea. CARDIAC STRESS: Per protocol, 0.4 mg of regadenoson was infused with a normal hemodynamic response. She had minimal dyspnea and no chest discomfort or other anginal symptoms with stress. Her resting ECG shows sinus rhythm with an incomplete RBBB but normal ST segments. There are no significant ST-segment shifts or arrhythmias with pharmacologic stress. Per protocol, 25.9 millicuries of technetium-99m Myoview was then injected and the patient was imaged 10 minutes later using a gated SPECT acquisition protocol. The day prior while at rest, she was injected with 24.7 millicuries of technetium-99m Myoview was imaged 20 minutes later, again using a gated SPECT acquisition protocol. FINDINGS: 1. Raw data: There is marginal tracer uptake with fairly prominent breast shadows noted that clearly produce some attenuation artifact. There also appears to be some diaphragmatic attenuation. The patient was unable to lay prone. Her ratio is normal at 0.35 with a normal TID ratio of 1.05. 2. Quantitated gated SPECT: Post-stress ejection fraction is estimated at 78% without any regional wall motion abnormality and specifically the apex and inferior wall appear to have normal contractility. The resting ejection fraction is also estimated at 78% with a resting end-diastolic volume of 121 mL. 3. Myocardial perfusion imaging: Post-stress supine images show a fairly normal myocardial perfusion pattern, although with a subtle defect in the inferior wall that would be consistent with diaphragmatic attenuation. There is also slight defect at the apex in a pattern that would be consistent with breast attenuation artifact. Unfortunately, there are no prone images to assess for this. The resting images show a very similar perfusion pattern, perhaps with slight improvement in the inferior wall, but likely nonsignificant. IMPRESSION: 1. Probable normal myocardial perfusion study. 2. Subtle, predominantly fixed, but slightly reversible inferior perfusion defect that most likely reflects diaphragmatic attenuation artifact. There is also a minimally reversible apical defect that likely reflects breast attenuation artifact. While previous infarction cannot be excluded, given the absence of a wall motion abnormality, these most likely reflect attenuation artifacts. There is no compelling evidence for any significant myocardial ischemia. 3. Normal left ventricular systolic function without any regional wall motion abnormality. 4. No angina or ECG evidence of ischemia with pharmacologic vasodilator stress. SamuelanuLaya robles - PAMELA/neda/kirk doc#: [id number]/job#: [id number] dd: 01/11/2022 16:47:00 dt: 01/11/2022 19:14:00 DICTATING MD/COPIES TO: Delbert Kay MD; Elaina Hu MD COPIES MNE: FLASH;
== END ==
PROVIDERS: Family Provider Internal Medicine; PCP Internal Medicine; Referring Provider Internal Medicine Cardiovascular Disease; Visit Provider Internal Medicine Cardiovascular Disease
DX: R06.00 Dyspnea, unspecified (principal); Z20.822 Contact with and (suspected) exposure to COVID-19
CPT/HCPCS: 78452; 87635; C9803; A9502; J2785

== ENCOUNTER → 2022-01-11 15:06 | Outpatient (CLI) | payer OTHER, SELFPAY | PROVIDERS: Family Provider Internal Medicine; PCP Internal Medicine; Referring Provider Internal Medicine; Visit Provider Family Medicine | DX: E11.621 Type 2 diabetes mellitus with foot ulcer (principal); L97.526 Non-pressure chronic ulcer of other part of left foot with bone involvement without evidence of necrosis; L97.522 Non-pressure chronic ulcer of other part of left foot with fat layer exposed; L08.89 Other specified local infections of the skin and subcutaneous tissue; E11.69 Type 2 diabetes mellitus with other specified complication; M86.172 Other acute osteomyelitis, left ankle and foot; E11.40 Type 2 diabetes mellitus with diabetic neuropathy, unspecified; R79.82 Elevated C-reactive protein (CRP); R70.0 Elevated erythrocyte sedimentation rate; Z79.2 Long term (current) use of antibiotics | CPT/HCPCS: 11042; 87070; 87075; 87077; 87147; 87186; 87205; 99214 ==

== ENCOUNTER → 2022-01-20 11:12 | Outpatient (CLI) | payer OTHER, SELFPAY ==
--- NOTE | 2022-01-20 | DI.MRI.S_ITS ---
PROCEDURE: MR FOOT LT WO/W CON INDICATIONS: Osteomyelitis, unspecified TECHNIQUE: Noncontrast coronal T1 spin echo and STIR, sagittal T1 spin echo with fat saturation and STIR, axial T1 spin echo and T2 fast spin echo with fat saturation. After the administration of contrast, axial/sagittal/coronal T1 spin echo with fat saturation through the left forefoot. COMPARISON: [facility], CR, XR TOE LT MIN 2V, 12/26/2021, 21:35. FINDINGS: Image quality: Images are degraded by motion artifact. Bones: T2 hyperintense/T1 hypointense signal in the 1st distal phalanx as well as the distal aspect 1st and 2nd proximal phalanges, which correlates to contrast enhancement and is compatible with acute osteomyelitis. Bipartite medial hallux sesamoid. Degenerative changes of the hallux sesamoids are seen. Soft tissues: Reticulated and confluent T2 hyperintense signal about the 1st digit, which exhibits contrast enhancement and is compatible with edema/cellulitis. No well-formed fluid collection is appreciated to suggest an abscess. The scanned muscles demonstrate normal overall bulk and internal signal. Fluid surrounds the lumbrical tendons, which may reflect tenosynovitis. IMPRESSION: 1. Osteomyelitis involving the 1st and 2nd digits as detailed above. 2. Diffuse forefoot cellulitis, most prominently involving the 1st digit. Dictated by: Hiren Ghotra M.D. on 01/20/2022 at 13:51 Approved by: Hiren Ghotra M.D. on 01/20/2022 at 14:04
== END ==
PROVIDERS: Family Provider Internal Medicine; PCP Internal Medicine; Referring Provider Orthopaedic Surgery Foot and Ankle Surgery; Visit Provider Orthopaedic Surgery Foot and Ankle Surgery
DX: M86.9 Osteomyelitis, unspecified (principal); L03.032 Cellulitis of left toe
CPT/HCPCS: 73720

== ENCOUNTER → 2022-02-15 13:30 | Outpatient (CLI) | payer OTHER, SELFPAY | PROVIDERS: Family Provider Internal Medicine; PCP Internal Medicine; Referring Provider Internal Medicine; Visit Provider Family Medicine | DX: E11.69 Type 2 diabetes mellitus with other specified complication (principal); M86.172 Other acute osteomyelitis, left ankle and foot; B95.1 Streptococcus, group B, as the cause of diseases classified elsewhere; E11.40 Type 2 diabetes mellitus with diabetic neuropathy, unspecified; R60.0 Localized edema; Z79.2 Long term (current) use of antibiotics; Z87.2 Personal history of diseases of the skin and subcutaneous tissue | CPT/HCPCS: 99212; 99213 ==

== ENCOUNTER → 2022-03-08 15:04 | Outpatient (ROUT) | payer OTHER, SELFPAY | PROVIDERS: Family Provider Internal Medicine; PCP Internal Medicine; Visit Provider Internal Medicine Infectious Disease | DX: R19.7 Diarrhea, unspecified (principal) ==

== ENCOUNTER → 2022-12-07 09:40 | Outpatient (CLI) | payer OTHER, SELFPAY ==
--- NOTE | 2022-12-07 09:42 | DI.CT.S_ITS ---
PROCEDURE: CT SOFT TISSUE NECK WO CON INDICATIONS: TRACHEAL STENOSIS/AIRWAY OBSTRUCTION TECHNIQUE: Non-contrast 3.0 mm axial sections acquired from the sella to the aortic arch. Additional oblique axial 3.0 mm sections acquired through the pharynx. 3 mm thick coronal and sagittal reformats were generated. For radiation dose reduction, the following was used: automated exposure control. COMPARISON: [facility], CT, CT CHEST WO CON, 12/07/2022, 9:47. [facility], CT, SOFT TISSUE NECK W CONTRAST, 06/01/2017, 10:46. FINDINGS: Image quality: Limited by lack of IV contrast. There is artifact associated with the metallic hardware. Lymph nodes: No enlarged lymph nodes seen throughout the neck. Vessels: Non-opacified vessels appear normal in caliber. Dense atherosclerotic calcification can be seen, particularly involving the carotid bifurcations. Neck spaces: In this patient with this given history, scrutiny is given to the airway. No findings of airway narrowing can be seen. The oropharynx, nasopharynx, and pharynx demonstrate no mucosal lesions. The vocal cords, false vocal cords, pyriform sinuses, epiglottis, vallecula, and tongue base all appear normal. Extramucosal spaces appear unremarkable. Glands: The parotid and submandibular glands appear normal, without stones. Thyroid gland is not well seen. Miscellaneous: Visualized brain and orbits appear normal. Lung apices appear clear. Superficial soft tissues appear normal. Moderate cervical spine degenerative changes are seen. IMPRESSION: No significant airway abnormality can be seen on this noncontrast neck CT. To the limits of this study, no findings masses or enlarged lymph nodes are seen. Dense atherosclerotic calcification noted, particularly involving the carotid bifurcations. Dictated by: Curry Yee M.D. on 12/07/2022 at 12:09 Approved by: Curry Yee M.D. on 12/07/2022 at 12:11
--- NOTE | 2022-12-07 09:42 | DI.CT.S_ITS ---
PROCEDURE: CT CHEST WO CON INDICATIONS: TRACHEAL STENOSIS/AIRWAY OBSTRUCTION TECHNIQUE: Noncontrast 5 mm thick sections acquired from the pulmonary apices to the posterior costophrenic angles. 1 mm lung window, 5 mm thick coronal and sagittal and 7 mm axial MIP reformats were then acquired. For radiation dose reduction, the following was used: automated exposure control, adjustment of mA and/or kV according to patient size. COMPARISON: [facility], CT, CHEST/ABDOMEN WITH CONTRAST, 06/01/2017, 10:46. [facility], CT, CT SOFT TISSUE NECK WO CON, 12/07/2022, 9:47. FINDINGS: Image quality: Excellent. Lungs and pleura: No acute air space opacities. Minimal thickening at the right minor fissure. Small right calcified pleural plaques are unchanged. Small left noncalcified pleural plaque. Punctate right middle lobe pulmonary nodule. No pleural effusions or pneumothorax. Airways are clear. Mediastinum: Heart size is normal. Aortic valvular calcification. Three-vessel coronary artery calcifications. No pericardial effusion. No mediastinal adenopathy by size criteria. Thoracic aorta and central pulmonary arteries are normal in size. Esophagus is normal in caliber. No hiatal hernia. Bones and chest wall: No aggressive appearing lesion. Bones have a heterogeneous appearance. No vertebral body compression fractures. No axillary or supraclavicular adenopathy by size criteria. Thyroid gland is unremarkable were visualized. Abdomen: Visualized upper abdominal solid organs and bowel loops appear normal in the absence of contrast. Upper ventral abdominal wall fat containing hernia. Hernia neck measures 5.3 cm. IMPRESSION: 1. Tracheal caliber appears within normal limits. Consider high-resolution chest CT to evaluate the lungs and airways during the expiratory phase. Recommend clinical correlation. 2. No acute airspace opacity. 3. Small calcified pleural plaques. Dictated by: Antonio Astudillo M.D. on 12/07/2022 at 13:10 Approved by: Antonio Astudillo M.D. on 12/07/2022 at 13:22
== END ==
PROVIDERS: Family Provider Internal Medicine; PCP Internal Medicine; Referring Provider Internal Medicine; Visit Provider Internal Medicine
DX: J39.8 Other specified diseases of upper respiratory tract (principal); J98.8 Other specified respiratory disorders; I65.29 Occlusion and stenosis of unspecified carotid artery; I25.10 Atherosclerotic heart disease of native coronary artery without angina pectoris; J92.9 Pleural plaque without asbestos
CPT/HCPCS: 70490; 71250

== ENCOUNTER → 2022-12-21 12:43 | Outpatient (CLI) | payer OTHER, SELFPAY ==
--- NOTE | 2022-12-21 | DI.MG.S_ITS ---
BILATERAL DIGITAL SCREENING MAMMOGRAM 3D/2D WITH CAD: 12/21/2022 CLINICAL: Routine screening. Family history of breast cancer. Comparison is made to exams dated: 12/15/2021 mammogram, 10/12/2020 mammogram, and 10/09/2019 mammogram - [facility]. Both breasts are heterogeneously dense, which may obscure small masses (category c / 51-75% glandular tissue). Current study was also evaluated with a Computer Aided Detection (CAD) system. There are benign vascular calcifications in both breasts. No significant masses, calcifications, or other findings are seen in either breast. There has been no significant interval change. IMPRESSION: BENIGN There is no mammographic evidence of malignancy. A 1 year screening mammogram is recommended. Based on the Tyrer Cuzick model (a risk assessment model) the patient's lifetime risk is 8.6% and her 10 year risk is 0.0%. According to the ACR, ACS, and NCCN guidelines, an annual breast MRI exam along with mammogram is recommended if the patient's lifetime risk is 20% or greater. This exam was interpreted at Station ID: [id number]. NOTE: For mammograms, a report in lay terms will be sent to the patient. Approximately 15% of breast malignancies will not be visualized mammographically. In the management of a palpable breast mass, a negative mammogram must not discourage biopsy of a clinically suspicious lesion. Electronically Signed By: Oscar bradley/joseph:12/21/2022 13:51:58 copy to: ARIA NAIDU letter sent: Normal Exam ACR BI-RADS Category 2: Benign Finding(s) 3342F
== END ==
PROVIDERS: Family Provider Internal Medicine; PCP Internal Medicine; Referring Provider Internal Medicine; Visit Provider Internal Medicine
DX: Z12.31 Encounter for screening mammogram for malignant neoplasm of breast (principal); Z80.3 Family history of malignant neoplasm of breast
CPT/HCPCS: 77063; 77067

== ENCOUNTER → 2023-02-09 09:34 | Outpatient (CLI) | payer OTHER, SELFPAY ==
--- NOTE | 2023-02-16 07:46 | PM.PFT.1 ---
Pulmonary Function Test Referral & Results Date Patient Seen: 02/09/23 Results: The spirometry demonstrates an FVC of 1.55 L which is 50% of predicted. The FEV1 was measured at 0.98 L which is 49% of predicted. The FEV1/FVC ratio was 64 which is 84% of predicted. Patient declined the administration the bronchodilator Lung volumes show an SVC of 1.84 L which is 70% of predicted. The diffusing capacity was measured at 21.68 which is 94% of predicted. The maximum voluntary ventilation was severely reduced Interpretation: This study demonstrates severe obstructive lung disease with FEV1 of less than 1 L. There is also moderate restrictive lung disease based on reduction in lung volumes Diffusing capacity is normal but maximum voluntary ventilation is severely reduced and probably out of proportion to degree of abnormalities of spirometry suggesting the presence of neuromuscular disease such as possible extrathoracic obstruction Clinical correlation suggested
== END ==
PROVIDERS: Family Provider Internal Medicine; PCP Internal Medicine; Referring Provider Internal Medicine; Visit Provider Internal Medicine
DX: J44.9 Chronic obstructive pulmonary disease, unspecified (principal)
CPT/HCPCS: 94010; 94060; 94726; 94729

== ENCOUNTER → 2023-10-04 15:10 | Outpatient (CLI) | payer OTHER, SELFPAY ==
--- NOTE | 2023-10-04 | DI.ECHO.S_ITS ---
[place]---------+ [facility] +---------+ : : [address] : [address] : : : : [id number] : : : : Phone: [phone] Echocardiogram Report + + :Name: BEVERLEY KUMAR Study Date: 10/04/2023 Height: 63 in : :[facility] ReadingLocation: Weight: 244 lb : : Gender: Female BSA: 2.1 m2 : :: 1945 Age: 78 yrs BP: 131/73 mmHg: :Reason For Study: Aortic Valve Stenosis : :Ordering Physician: ESHA, : :LOLI Performed By: Aaliyah Mcmillan : :Referring: LOLI HU : + + Interpretation Summary 1) Normal left ventricular thickness, size, wall motion, and systolic function (EF 60-65%). 2) Normal right ventricular size and function. 3) There is mild calcific mitral stenosis. 4) There is mild to moderate aortic stenosis (valve area 1.2cm2, mean gradient 17mmHg, severity ratio 0.46). 5) Compared to the echo done 08/04/2021, no significant change. Procedure: A two-dimensional transthoracic echocardiogram with color flow and Doppler was performed. The study quality was technically difficult. Comparison is made with the echocardiogram of 08/04/2021. The patient was in normal sinus rhythm during the exam. Left Ventricle: The left ventricle is normal in size and wall thickness. The ejection fraction is estimated to be 60-65%. Left ventricular systolic function appears normal without focal wall motion abnormalities. Diastolic parameters suggest a relaxation abnormality of the left ventricle, consistent with probable normal filling pressures. Right Ventricle: The right ventricle is normal in size and function. Atria: The left atrium is borderline dilated. Right atrial size is normal. There is no Doppler evidence for an interatrial shunt. Mitral Valve: The mitral valve leaflets are moderately calcified. There is moderate mitral annular calcification. There is mild mitral stenosis. The mitral valve mean gradient is 6 mmHg. There is trace mitral regurgitation. Aortic Valve: The aortic valve is not well visualized. There is mild to moderate aortic stenosis. The peak aortic velocity is 2.75 m/sec. The aortic valve mean gradient is 18 mmHg. No aortic regurgitation is present. Tricuspid Valve: The tricuspid valve is not well visualized. There is no tricuspid stenosis. There is trace tricuspid regurgitation. Pulmonary artery pressures cannot be estimated because of the lack of a measurable TR jet velocity. Pulmonic Valve: The pulmonic valve is not well visualized. There is no pulmonic valvular stenosis. There is no pulmonic valvular regurgitation. Great Vessels: The aortic root is not well visualized. The ascending aorta could not be visualized. The pulmonary is not well visualized. The IVC is of normal diameter and collapses greater than 50% with a sniff. This suggests a low right atrial pressure of 3 mm Hg. Pericardium/ Pleura There is no pericardial effusion. MMode/2D Measurements & Calculations LVOT diam: 1.8 cm LA A2 area: 18.5 cm2 Ao root diam: 2.6 cm LA A4 area: 20.3 cm2 LA length (vol): 5.2 cm LA vol: 61.7 ml LA vol index: 29.3 ml/m2 RA long axis: 4.8 cm RVD1 (basal): 3.5 cm RA area: 12.1 cm2 RA vol: 26.1 ml RA : 12.4 ml/m2 IVC diam: 1.9 cm LVLs ap4: 6.2 cm LVLd ap2: 7.5 cm LVLs ap2: 6.5 cm TAPSE_phl: 2.4 cm Doppler Measurements & Calculations Ao V2 max: 268.0 cm/sec LVOT Max Phuc: 123.5 cm/sec Ao V2 mean: 194.4 cm/sec LV V1 max P.1 mmHg Ao max P.0 mmHg LV V1 VTI: 28.2 cm Ao mean P.8 mmHg LORIN(I,D): 1.2 cm2 Ao V2 VTI: 61.0 cm LORIN(V,D): 1.2 cm2 sev ratio: 0.46 LORIN indexed to BSA (cm^2/m^2): 0.58 MV E max phuc: 119.0 cm/sec PA V2 max: 92.2 cm/sec MV A max phuc: 151.0 cm/sec PA V2 mean: 60.8 cm/sec MV E/A: 0.79 PA mean P.0 mmHg Med Peak E' Phuc: 6.1 cm/sec PA pr(Accel): 38.5 mmHg E/E' med: 19.5 Lat Peak E' Phuc: 9.2 cm/sec E/E' lat: 13.0 E/e' average: 16.3 MV dec time: 0.26 sec MVA(VTI): 1.4 cm2 MV V2 mean: 112.0 cm/sec SV(LVOT): 73.9 ml MV mean P.4 mmHg MV V2 VTI: 51.1 cm AV VR_phl: 0.46 LORIN(VTI)/BSA_phl: 0.50 Reading Physician:04:12 PM
== END ==
PROVIDERS: Family Provider Internal Medicine; PCP Internal Medicine; Referring Provider Internal Medicine Cardiovascular Disease; Visit Provider Internal Medicine Cardiovascular Disease
DX: I08.0 Rheumatic disorders of both mitral and aortic valves (principal)
CPT/HCPCS: 93306

== ENCOUNTER → 2024-01-01 14:11 | Outpatient (CLI) | payer OTHER, SELFPAY ==
--- NOTE | 2024-01-01 | DI.MG.S_ITS ---
BILATERAL DIGITAL SCREENING MAMMOGRAM 3D/2D WITH CAD: 01/01/2024 CLINICAL: Routine screening. Family history breast cancer. Comparison is made to exams dated: 12/21/2022 mammogram, 12/15/2021 mammogram, and 10/12/2020 mammogram - [facility]. Both breasts are heterogeneously dense, which may obscure small masses (category c / 51-75% glandular tissue). Current study was also evaluated with a Computer Aided Detection (CAD) system. There are benign vascular calcifications in both breasts. No significant masses, calcifications, or other findings are seen in either breast. There has been no significant interval change. IMPRESSION: BENIGN There is no mammographic evidence of malignancy. A 1 year screening mammogram is recommended. Based on the Tyrer Cuzick model (a risk assessment model) the patient's lifetime risk is 7.8% and her 10 year risk is 0.0%. According to the ACR, ACS, and NCCN guidelines, an annual breast MRI exam along with mammogram is recommended if the patient's lifetime risk is 20% or greater. This exam was interpreted at Station ID: [id number]. NOTE: For mammograms, a report in lay terms will be sent to the patient. Approximately 15% of breast malignancies will not be visualized mammographically. In the management of a palpable breast mass, a negative mammogram must not discourage biopsy of a clinically suspicious lesion. Electronically Signed By: Lance schwartz/joseph:01/01/2024 14:58:51 copy to: ARIA NAIDU letter sent: Normal Exam ACR BI-RADS Category 2: Benign Finding(s) 3342F
== END ==
LOC: MAMMO 14:11
PROVIDERS: Family Provider Internal Medicine; PCP Internal Medicine; Referring Provider Internal Medicine; Visit Provider Internal Medicine
DX: Z12.31 Encounter for screening mammogram for malignant neoplasm of breast (principal); Z80.3 Family history of malignant neoplasm of breast; R92.333 Mammographic heterogeneous density, bilateral breasts
CPT/HCPCS: 77063; 77067

== ENCOUNTER 2024-01-17 13:48 | Emergency (ER) | payer OTHER, SELFPAY ==
[2024-01-17 14:02] VITALS: BP 156/69; PULSE 72; RESP 18; TEMP 37.2; O2SAT 99; BMI 44.4
--- NOTE | 2024-01-17 14:09 | DI.RAD.S_ITS ---
PROCEDURE: XR KNEE RT 3V INDICATIONS: fell last week, bilat knee pain, L>R TECHNIQUE: 3 views of the knee were acquired. COMPARISON: None. FINDINGS: Bones: No fractures or dislocations. No suspicious bony lesions. Tricompartmental osteoarthritis. Soft tissues: No joint effusion. No suspicious soft tissue calcifications. IMPRESSION: No acute bony abnormality or significant effusion. Dictated by: Rosi Patel MD, PhD on 01/17/2024 at 14:34 Approved by: Rosi Patel MD, PhD on 01/17/2024 at 14:34
--- NOTE | 2024-01-17 14:09 | DI.RAD.S_ITS ---
PROCEDURE: XR KNEE LT 3V INDICATIONS: fell last week, bilat knee pain, L>R TECHNIQUE: 3 views of the knee were acquired. COMPARISON: None. FINDINGS: Bones: No fractures or dislocations. No suspicious bony lesions. Tricompartmental osteoarthritis. Soft tissues: No joint effusion. No suspicious soft tissue calcifications. IMPRESSION: No acute bony abnormality or significant effusion. Dictated by: Rosi Patel MD, PhD on 01/17/2024 at 14:34 Approved by: Rosi Patel MD, PhD on 01/17/2024 at 14:35
--- NOTE | 2024-01-17 14:21 | PC.NURSE ---
Patient left department with x-ray tech.
--- NOTE | 2024-01-17 14:59 | ED.FALL ---
HPI - Fall <Laya Isabel PA-C - Last Filed: 01/17/24 16:50> General Chief Complaint: Fall Stated Complaint: fall, knee pain/injury Time Seen by Provider: 01/17/24 14:01 Source: patient and family Mode of arrival: Ambulatory History of Present Illness HPI Narrative: Patient is a 78-year-old female who tripped and fell onto her bilateral knees 1 week ago onto linoleum floor. Since then, she is having significant knee pain, left greater than right. She has a history of significant osteoarthritis in both knees and has previously been under the care of Dr. Cannon and received steroid injections into both knees. She uses a cane at baseline to ambulate. 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 She appears short of breath but states this is baseline for her. She notes that the swelling in her knees and the bruising has improved over the past week. Because of the degree of pain she continues to have, she wants to make sure that there isn't a fracture or other abnormality today. Related Data Home Medications Medication Instructions Recorded Confirmed lidocaine 4 % topical cream 1 applic topical PRN PRN Pain 06/21/16 10/16/23 (Scale Score 4-6) ##0 [STOOL SOFTNER] 1 cap PO HS ##0 01/11/18 05/07/23 timolol 0.5 % eye drops (Betimol) See Rx Instructions .Route .COMPLEX 06/11/18 05/07/23 Lantus U-100 Insulin 25 units BID 10/01/18 10/16/23 insulin aspart U-100 100 unit/mL See Rx Instructions .Route .COMPLEX 10/01/18 10/16/23 subcutaneous solution (Novolog U-100 Insulin aspart) levothyroxine 300 mcg tablet 300 mcg PO DAILY 10/01/18 10/16/23 omeprazole 40 mg capsule,delayed 40 mg PO BEDTIME 10/01/18 10/16/23 release prednisolone 1 %-gatifloxacin 0.5 1 drp EYE-LEFT BID 10/01/18 10/16/23 % eye drops,suspension simvastatin 40 mg tablet 40 mg DAILY 10/01/18 10/16/23 telmisartan 20 mg tablet (Micardis) 20 mg DAILY 10/01/18 05/07/23 brimonidine 0.2 %-timolol 0.5 % 1 drp EYE-LEFT BID 03/31/19 10/16/23 eye drops (Combigan) latanoprost 0.005 % eye drops 1 drp EYE-LEFT DAILY 03/31/19 10/16/23 temazepam 15 mg capsule 15 mg PO BEDTIME PRN Insomnia 06/08/21 05/07/23 calcium carbonate 600 mg-vitamin 1 tab PO BID 11/06/22 10/16/23 D3 5 mcg (200 unit) tablet budesonide 0.5 mg/2 mL suspension 0.5 mg inhalation DAILY 10/16/23 10/16/23 for nebulization fexofenadine 30 mg tablet 20 mg PO DAILY 10/16/23 10/16/23 metformin 500 mg tablet 500 mg PO TID 10/16/23 10/16/23 Allergies Allergy/AdvReac Type Severity Reaction Status Date / Time adhesive tape [ADHESIVE TAPE] Allergy Mild BLISTERS Verified 01/17/24 14:06 gabapentin AdvReac Severe SWELLING Verified 01/17/24 14:06 THROAT codeine AdvReac Intermediate HALLUCINATI Verified 01/17/24 14:06 ONS Review of Systems <Laya Isabel PA-C - Last Filed: 01/17/24 16:50> Review of Systems ROS Unobtainable: All systems reviewed & are unremarkable except as noted in HPI and below Patient History <Laya Isabel PA-C - Last Filed: 01/17/24 16:50> Medical History Murmur, heart Radiation adverse effect History of PFTs Glaucoma Hypothyroidism Arthritis Bowel obstruction Colon cancer GERD (gastroesophageal reflux disease) Sarcoidosis Tracheal stenosis Hyperlipidemia HTN (hypertension) Port-A-Cath in place (04/06/15) Diabetes Joint pain Constipation Vision changes Frequent headaches Surgical History History of bronchoscopy S/p bilateral carpal tunnel release Hx of tracheostomy History of section History of bone marrow biopsy History of biopsy Hx of hernia repair Hx of eye surgery Social History marital status: household members: spouse occupational status: previously employed Smoking Status: Never smoker alcohol intake: never Smoking Status: Never smoker alcohol intake frequency: holidays/special occasions only Substance Use Type: does not use Exam <PIEDAD Flores Last Filed: 01/17/24 16:50> Narrative Exam Narrative: GENERAL: 78 year old patient appears stated age. Well-developed patient, in no acute distress. NEURO: AOx3. HEAD: Atraumatic. Normocephalic. EYES: Pupils equal round and reactive. Extraocular motions intact. No scleral icterus. No injection or drainage. ENT: Nose without bleeding or purulent drainage. Airway patent but noisy. RESPIRATORY: No distress. EXTREMITIES: Mild edema over the left knee, trace edema over the right knee. No visible bruising or open wound. Tender over the medial joint line on both knees, left greater than right. SKIN: No rash or erythema of visible areas Initial Vital Signs Initial Vital Signs: Vital Signs Temperature 98.9 F 01/17/24 14:02 Pulse Rate 72 01/17/24 14:02 Respiratory Rate 18 01/17/24 14:02 Blood Pressure 156/69 H 01/17/24 14:02 Pulse Oximetry 99 01/17/24 14:02 Oxygen Delivery Method Room Air 01/17/24 14:02 <Graciela Cheema DO - Last Filed: 01/18/24 08:15> Initial Vital Signs Initial Vital Signs: Vital Signs Temperature 98.9 F 01/17/24 14:02 Pulse Rate 72 01/17/24 14:02 Respiratory Rate 18 01/17/24 14:02 Blood Pressure 156/69 H 01/17/24 14:02 Pulse Oximetry 99 01/17/24 14:02 Oxygen Delivery Method Room Air 01/17/24 14:02 Course <Laya Isabel PA-C - Last Filed: 01/17/24 16:50> Orders Ordered: ED Orders 01/17/24 14:09 XR knee LT 3V Stat XR knee RT 3V Stat Vital Signs Vital signs: Vital Signs - 8 hr 01/17/24 14:02 Temperature 98.9 F Pulse Rate 72 Respiratory Rate 18 Blood Pressure 156/69 H Pulse Oximetry 99 Oxygen Delivery Method Room Air <Graciela Cheema DO - Last Filed: 01/18/24 08:15> Orders Ordered: ED Orders 01/17/24 14:09 XR knee LT 3V Stat XR knee RT 3V Stat Vital Signs Vital signs: Vital Signs - 8 hr 01/17/24 14:02 Temperature 98.9 F Pulse Rate 72 Respiratory Rate 18 Blood Pressure 156/69 H Pulse Oximetry 99 Oxygen Delivery Method Room Air MDM - Fall <Laya Isabel PA-C - Last Filed: 01/17/24 16:50> Imaging Data Extremity x-ray #1: Radiologist's Impression: PROCEDURE: XR KNEE RT 3V INDICATIONS: fell last week, bilat knee pain, L>R TECHNIQUE: 3 views of the knee were acquired. COMPARISON: None. FINDINGS: Bones: No fractures or dislocations. No suspicious bony lesions. Tricompartmental osteoarthritis. Soft tissues: No joint effusion. No suspicious soft tissue calcifications. IMPRESSION: No acute bony abnormality or significant effusion. Dictated by: Rosi Patel MD, PhD on 01/17/2024 at 14:34 Approved by: Rosi Patel MD, PhD on 01/17/2024 at 14:34 Extremity x-ray #2: Radiologist's Impression: PROCEDURE: XR KNEE LT 3V INDICATIONS: fell last week, bilat knee pain, L>R TECHNIQUE: 3 views of the knee were acquired. COMPARISON: None. FINDINGS: Bones: No fractures or dislocations. No suspicious bony lesions. Tricompartmental osteoarthritis. Soft tissues: No joint effusion. No suspicious soft tissue calcifications. IMPRESSION: No acute bony abnormality or significant effusion. Dictated by: Rosi Patel MD, PhD on 01/17/2024 at 14:34 Approved by: Rosi Patel MD, PhD on 01/17/2024 at 14:35 [facility] Narrative Medical decision making narrative: Multiple etiologies for patient's symptoms considered including, but not limited to: Fracture, dislocation, soft tissue injury No evidence of fracture or dislocation on x-ray. Patient has significant osteoarthritis in both knees. Provided reassurance to patient. Suggested continued supportive care, follow up with PCP and/or Orthopedics if her symptoms do not improve. Patient's symptoms improved over duration of stay with above-stated therapies. Findings and discharge diagnosis discussed with patient/family followed by verbalization of understanding Return precautions discussed with patient/family whom verbalize understanding of diagnosis and plan Discharge Plan Departure Patient Disposition: Home Clinical Impression: Derangement of knee, left, Derangement of knee, right Instructions: How To Perform RICE (Rest, Ice, Compress, Elevate), How to Prevent Falls Activity Restrictions/Additional Instructions: *You have been diagnosed with bilateral knee pain after a fall. There is no evidence on the x-rays of a fracture. A believe the fall exacerbated your underlying osteoarthritis. I would suggest following up with your orthopedist for additional pain control and potential steroid injections. *What to do: *Please continue to take your regular medications as directed. [ ] New medication prescriptions sent to your pharmacy: [ ] [ ] New medication written as a paper prescription [x] No new medications given *Please follow up with your primary care provider in 2-3 days, call for an appointment. Let them know you were seen in the Emergency Department and that we ask that you be seen in follow up. We will electronically transmit a record of today's note if your PCP is in our system *If you do not have a primary care provider please contact the [facility] Resource line at [phone]. They will ask some questions about your medical history and help get you set up with a doctor in the community. *Return to Emergency Department if you should have any new, worsening or concerning symptoms, such as [fever greater than 101 F, shaking chills, worsening pain, persistent vomiting or other concerning symptoms]. Prescriptions: No Action lidocaine 4 % Cream 1 applic topical PRN PRN (Reason: Pain (Scale Score 4-6)) Qty: 0 [STOOL SOFTNER] 1 cap PO HS Qty: 0 Betimol 0.5 % Drops See Rx Instructions .ROUTE .COMPLEX Rx Instructions: Instill 1 drop by ophthalmic route 2 times every day into right eye prednisolone acet-gatifloxacin 1-0.5 % Drops,Suspension 1 drp EYE-LEFT BID simvastatin 40 mg Tablet 40 mg DAILY insulin aspart U-100 [Novolog U-100 Insulin aspart] 100 unit/mL Solution See Rx Instructions .ROUTE .COMPLEX Patient Comments: pt taking 10 units am 14 units noon 10 units hs Rx Instructions: 10 units 14 units noon 10 units hs per pt PER SLIDING SCALE Lantus U-100 Insulin 25 units 25 units BID levothyroxine 300 mcg Tablet 300 mcg PO DAILY telmisartan [Micardis] 20 mg Tablet 20 mg DAILY omeprazole 40 mg Capsule,Delayed Release(Dr/Ec) 40 mg PO BEDTIME temazepam 15 mg Capsule 15 mg PO BEDTIME PRN (Reason: Insomnia) latanoprost 0.005 % Drops 1 drp EYE-LEFT DAILY brimonidine-timolol [Combigan] 0.2-0.5 % Drops 1 drp EYE-LEFT BID calcium carbonate-vitamin D3 [Calcium + D] 600 mg-5 mcg (200 unit) Tablet 1 tab PO BID metformin 500 mg tablet 500 mg PO TID fexofenadine 30 mg tablet 20 mg PO DAILY budesonide 0.5 mg/2 mL suspension for nebulization 0.5 mg inhalation DAILY Referrals: Bong Mcarthur MD [Primary Care Provider] - Stand Alone Forms: Patient Portal/API ED Sign-out <Graciela Cheema DO - Last Filed: 01/18/24 08:15> Cosign ED Attending Cosignature Attestation: I was available for consultation.
== END 2024-01-17 14:56 | disposition home or self-care (01) ==
PROVIDERS: Emergency Provider Physician Assistant; Family Provider Internal Medicine; PCP Internal Medicine
DX: M23.91 Unspecified internal derangement of right knee (principal); M23.92 Unspecified internal derangement of left knee
CPT/HCPCS: 73562; 99283

== ENCOUNTER → 2024-02-20 16:16 | Outpatient (CLI) | payer OTHER, SELFPAY ==
--- NOTE | 2024-02-20 16:19 | DI.RAD.S_ITS ---
PROCEDURE: XR FOOT RT MIN 3V INDICATIONS: RT FOOT PAIN TECHNIQUE: 3 views of the foot were acquired. COMPARISON: None. FINDINGS: Bones: No acute fractures or dislocations. Old 5th metatarsal base fracture. Moderate osteoarthritic changes in ankle and foot. Calcaneal spurring. No suspicious bony lesions. Osteopenia. Soft tissues: No tibiotalar joint effusion. Calcification at the Achilles tendon insertion to calcaneus compatible with tendinitis. IMPRESSION: 1. No acute bony abnormality. 2. Moderate osteoarthritis. 3. Calcaneal spurring. 4. Old 5th metatarsal base fracture. 5. Achilles tendinitis. 6. Osteopenia. Dictated by: Crystal Persaud M.D. on 02/21/2024 at 9:36 Approved by: Crystal Persaud M.D. on 02/21/2024 at 9:38
== END ==
PROVIDERS: Family Provider Internal Medicine; PCP Internal Medicine; Referring Provider Student in an Organized Health Care Education/Training Program; Visit Provider Student in an Organized Health Care Education/Training Program
DX: M76.61 Achilles tendinitis, right leg (principal); M79.671 Pain in right foot; M19.071 Primary osteoarthritis, right ankle and foot; M77.31 Calcaneal spur, right foot; M85.871 Other specified disorders of bone density and structure, right ankle and foot; S92.351S Displaced fracture of fifth metatarsal bone, right foot, sequela
CPT/HCPCS: 73630

== ENCOUNTER → 2024-03-11 09:22 | Outpatient (CLI) | payer MEDICARE, SELFPAY | PROVIDERS: Family Provider Internal Medicine; PCP Internal Medicine; Referring Provider Student in an Organized Health Care Education/Training Program; Visit Provider Surgery | DX: E11.621 Type 2 diabetes mellitus with foot ulcer (principal); L97.512 Non-pressure chronic ulcer of other part of right foot with fat layer exposed; L84 Corns and callosities; L53.9 Erythematous condition, unspecified; E11.42 Type 2 diabetes mellitus with diabetic polyneuropathy; F32.A Depression, unspecified; J44.9 Chronic obstructive pulmonary disease, unspecified | CPT/HCPCS: 11042; 87070; 87075; 87077; 87147; 87186; 87205; 99213; 99214 ==

== ENCOUNTER → 2024-03-18 10:51 | Outpatient (CLI) | payer MEDICARE, SELFPAY | LOC: WC 10:54 | PROVIDERS: Family Provider Internal Medicine; PCP Internal Medicine; Referring Provider Internal Medicine; Visit Provider Surgery | DX: E11.621 Type 2 diabetes mellitus with foot ulcer (principal); L97.512 Non-pressure chronic ulcer of other part of right foot with fat layer exposed; L84 Corns and callosities; L53.9 Erythematous condition, unspecified; J44.9 Chronic obstructive pulmonary disease, unspecified; E11.42 Type 2 diabetes mellitus with diabetic polyneuropathy | CPT/HCPCS: 11042 ==

== ENCOUNTER → 2024-04-01 10:50 | Outpatient (CLI) | payer MEDICARE, SELFPAY | PROVIDERS: Family Provider Internal Medicine; PCP Internal Medicine; Referring Provider Internal Medicine; Visit Provider Surgery | DX: E11.621 Type 2 diabetes mellitus with foot ulcer (principal); L97.512 Non-pressure chronic ulcer of other part of right foot with fat layer exposed; L84 Corns and callosities; L53.9 Erythematous condition, unspecified; M79.89 Other specified soft tissue disorders; E11.40 Type 2 diabetes mellitus with diabetic neuropathy, unspecified; E66.9 Obesity, unspecified; Z68.42 Body mass index [BMI] 45.0-49.9, adult | CPT/HCPCS: 11042; 87070; 87075; 87077; 87147; 87186; 87205; 99213 ==

== ENCOUNTER → 2024-04-08 11:43 | Outpatient (CLI) | payer MEDICARE, SELFPAY | LOC: WC 11:43 | PROVIDERS: Family Provider Internal Medicine; PCP Internal Medicine; Referring Provider Internal Medicine; Visit Provider Surgery | DX: E11.621 Type 2 diabetes mellitus with foot ulcer (principal); L97.512 Non-pressure chronic ulcer of other part of right foot with fat layer exposed; L84 Corns and callosities; L53.9 Erythematous condition, unspecified; M20.41 Other hammer toe(s) (acquired), right foot; J44.9 Chronic obstructive pulmonary disease, unspecified; Z79.2 Long term (current) use of antibiotics | CPT/HCPCS: 11042; 99213 ==

== ENCOUNTER → 2024-04-15 13:14 | Outpatient (CLI) | payer MEDICARE, SELFPAY | LOC: WC 13:14 | PROVIDERS: Family Provider Internal Medicine; PCP Internal Medicine; Referring Provider Student in an Organized Health Care Education/Training Program; Visit Provider Surgery | DX: E11.621 Type 2 diabetes mellitus with foot ulcer (principal); L97.512 Non-pressure chronic ulcer of other part of right foot with fat layer exposed; L84 Corns and callosities; L53.9 Erythematous condition, unspecified; L08.89 Other specified local infections of the skin and subcutaneous tissue | CPT/HCPCS: 11042 ==

== ENCOUNTER → 2024-04-17 16:56 | Outpatient (CLI) | payer MEDICARE, OTHER, SELFPAY ==
--- NOTE | 2024-04-17 16:58 | DI.MRI.S_ITS ---
PROCEDURE: MR FOOT RT WO/W CON INDICATIONS: Nonhealing ulcer of right third toe TECHNIQUE: Noncontrast coronal T1 spin echo and STIR, sagittal T1 spin echo with fat saturation and STIR, axial T1 spin echo and T2 fast spin echo with fat saturation. After the administration of contrast, axial/sagittal/coronal T1 spin echo with fat saturation through the right foot. COMPARISON: [facility], MR, MR FOOT LT WO/W CON, 01/20/2022, 11:43. FINDINGS: Image quality: Excellent. Bones: Marrow edema is noted involving 3rd distal phalanx with subtle dorsal cortical thinning. Mild contrast enhancement is also noted in this area. Moderate midfoot and forefoot joint osteoarthritic changes are seen. No acute fracture or dislocation. No other area of abnormal marrow signal or enhancement. No suspicious bony lesions. Soft tissues: Soft tissue swelling surrounding distal portion of 3rd toe is seen with suggestion of ulceration in dorsal aspect of distal 3rd toe. No discrete drainable peripherally enhancing fluid collection. Mild edema in visualized plantar foot muscles are seen suggestive of mild myositis. No intramuscular mass or drainable fluid collection. Extensor and flexor tendons are within normal limits. IMPRESSION: 1. Subtle ulceration involving dorsal aspect of distal 3rd toe with surrounding cellulitis. No discrete drainable abscess collection. Mild myositis in plantar foot muscle without intramuscular enhancing mass or drainable fluid collection. 2. Suggestion of osteomyelitis involving 3rd distal phalanx. No fracture or dislocation. No other area of marrow signal abnormality or abnormal enhancement. Midfoot and forefoot joint osteoarthritis. No suspicious bony lesions. Dictated by: Shashank Velasco M.D. on 04/18/2024 at 10:47 Approved by: Shashank Velasco M.D. on 04/18/2024 at 10:59
== END ==
PROVIDERS: Family Provider Internal Medicine; PCP Internal Medicine; Referring Provider Surgery; Visit Provider Surgery
DX: L97.512 Non-pressure chronic ulcer of other part of right foot with fat layer exposed (principal); L03.031 Cellulitis of right toe; M60.871 Other myositis, right ankle and foot; M19.071 Primary osteoarthritis, right ankle and foot
CPT/HCPCS: 73720; A9579

== ENCOUNTER → 2024-04-22 10:04 | Outpatient (CLI) | payer MEDICARE, OTHER, SELFPAY | PROVIDERS: Family Provider Internal Medicine; PCP Internal Medicine; Referring Provider Internal Medicine; Visit Provider Physician Assistant | DX: E11.621 Type 2 diabetes mellitus with foot ulcer (principal); L97.512 Non-pressure chronic ulcer of other part of right foot with fat layer exposed; R60.0 Localized edema; L53.9 Erythematous condition, unspecified; L84 Corns and callosities; L08.89 Other specified local infections of the skin and subcutaneous tissue; Z79.2 Long term (current) use of antibiotics | CPT/HCPCS: 11042; 99214 ==

== ENCOUNTER → 2024-04-29 10:19 | Outpatient (CLI) | payer MEDICARE, SELFPAY | LOC: WC 10:20 | PROVIDERS: Family Provider Internal Medicine; PCP Internal Medicine; Referring Provider Internal Medicine; Visit Provider Surgery | DX: E11.621 Type 2 diabetes mellitus with foot ulcer (principal); E11.42 Type 2 diabetes mellitus with diabetic polyneuropathy; L97.512 Non-pressure chronic ulcer of other part of right foot with fat layer exposed; L97.522 Non-pressure chronic ulcer of other part of left foot with fat layer exposed; L84 Corns and callosities; L53.9 Erythematous condition, unspecified; R60.0 Localized edema | CPT/HCPCS: 11042; 99213 ==

== ENCOUNTER → 2024-05-06 10:26 | Outpatient (CLI) | payer MEDICARE, OTHER, SELFPAY | PROVIDERS: Family Provider Internal Medicine; PCP Internal Medicine; Referring Provider Internal Medicine; Visit Provider Surgery | DX: E11.621 Type 2 diabetes mellitus with foot ulcer (principal); L97.512 Non-pressure chronic ulcer of other part of right foot with fat layer exposed; L97.522 Non-pressure chronic ulcer of other part of left foot with fat layer exposed; R60.0 Localized edema; L84 Corns and callosities; L53.9 Erythematous condition, unspecified; L08.89 Other specified local infections of the skin and subcutaneous tissue; Z79.899 Other long term (current) drug therapy | CPT/HCPCS: 11042; 99212; 99213 ==

== ENCOUNTER → 2024-05-13 10:04 | Outpatient (CLI) | payer MEDICARE, SELFPAY ==
[2024-05-13 13:49] LABS: Add Manual Diff / Slide Review NO; Basophils Absolute Auto 100 /uL (0-100); Basophils Percent Auto 1.1 % (0-2); Eosinophils Absolute Auto 300 /uL (0-450); Eosinophils Percent Auto 3.6 % (2-4); Hematocrit 33.6 % (36-46); Hemoglobin 11.1 g/dL (12.0-16.0); Lymphocytes Absolute Auto 1500 /uL (1100-4500); Lymphocytes Percent Auto 18.2 % (25-40); Mean Corpuscular HGB Conc 33.2 % (30-36); Mean Corpuscular Hemoglobin 29.1 PG (26-34); Mean Corpuscular Volume 87.7 fL (80-100); Monocytes Absolute Auto 600 /uL (0-900); Monocytes Percent Auto 7.7 % (3-14); Neutrophils Absolute Auto 5500 /uL (1500-7000); Neutrophils Percent Auto 69.4 % (50-75); Platelet Count 171 X10^3/uL (150-400); Red Blood Cell Count 3.83 X10^6/uL (4.0-5.2); Red Cell Distribution Width 16.1 % (11.6-14.8)
[2024-05-13 14:03] LABS: Alanine Aminotransferase 20 IU/L (<35); Albumin 3.9 g/dL (3.5-5.0); Albumin Globulin Ratio 1.3 (1.0-2.8); Alkaline Phosphatase 79 U/L (38-126); Aspartate Aminotransferase 25 IU/L (14-36); BUN Creatinine Ratio 33.9 (6-22); Bilirubin Total 0.5 mg/dL (0.2-1.3); Blood Urea Nitrogen 20 mg/dL (7-17); C-Reactive Protein Quant < 0.5 mg/dL (<1.0); Calcium 8.5 mg/dL (8.4-10.2); Carbon Dioxide 29 mmol/L (22-32); Chloride 103 mmol/L (98-107); Estimated Glomerular Filt Rate > 60 mL/min (>60); Globulin 2.9 g/dL (1.7-4.1); Glucose 212 mg/dL (80-110); HEMOLYSIS < 15 (0-50); Potassium 4.2 mmol/L (3.4-5.1); Sodium 137 mmol/L (137-145); Total Protein 6.8 g/dL (6.3-8.2)
== END ==
PROVIDERS: Family Provider Internal Medicine; PCP Internal Medicine; Referring Provider Internal Medicine; Visit Provider Surgery
DX: M86.9 Osteomyelitis, unspecified (principal); E11.42 Type 2 diabetes mellitus with diabetic polyneuropathy; R60.0 Localized edema; L84 Corns and callosities
CPT/HCPCS: 80053; 85025; 86140; 99212; 99213

== ENCOUNTER → 2024-05-20 14:22 | Outpatient (CLI) | payer MEDICARE, OTHER, SELFPAY | PROVIDERS: Family Provider Internal Medicine; PCP Internal Medicine; Referring Provider Internal Medicine; Visit Provider Surgery | DX: Z09 Encounter for follow-up examination after completed treatment for conditions other than malignant neoplasm (principal); Z86.31 Personal history of diabetic foot ulcer | CPT/HCPCS: 99211; 99213 ==

== ENCOUNTER → 2024-07-21 09:21 | Outpatient (CLI) | payer MEDICARE, SELFPAY ==
--- NOTE | 2024-07-21 09:23 | DI.CT.S_ITS ---
PROCEDURE: CT CHEST W CON INDICATIONS: Dyspnea, h/o radiation therapy, eval for ILD TECHNIQUE: After the administration of intravenous contrast, 5 mm thick sections acquired from the pulmonary apices to the posterior costophrenic angles. 1 mm axial lung, 5 mm thick coronal and sagittal reformats and 7 mm axial MIP were acquired. For radiation dose reduction, the following was used: automated exposure control, adjustment of mA and/or kV according to patient size. COMPARISON: [facility], CT, CT CHEST WO [facility], 12/07/2022, 9:47. FINDINGS: Image quality: Diagnostic. Lower Neck: No enlarged lymph nodes. Thyroid: No thyroid nodules which require sonographic follow up, per consensus guidelines. Axillae: No enlarged lymph nodes. Chest Wall: Unremarkable. Bones: Unremarkable. Lungs and Pleura: No pneumothorax or pleural effusions. Juxtapleural nodules with smooth margins, favoring benign intrapulmonary lymph nodes. Segmental bronchial thickening. 4 millimeter ground-glass nodule, central left upper lobe (series 3, image 90; size is not warrant follow-up per consensus guidelines. Heart: Heart size is enlarged, with annular calcification of the mitral valve and three-vessel coronary artery calcifications. No pericardial effusion. Thoracic Vessels: The aorta and pulmonary arteries demonstrate normal size. Mediastinum and Kiarra: No enlarged lymph nodes. Esophagus: No wall thickening. No hiatal hernia. Upper Abdomen: Ventral wall hernias containing fat. IMPRESSION: Diffuse bronchial thickening, suggestive of infectious or inflammatory bronchitis. No evidence of interstitial lung disease. No evidence of radiation fibrosis. Dictated by: Pedro Tanner M.D. on 07/21/2024 at 10:39 Approved by: Pedro Tanner M.D. on 07/21/2024 at 10:43
== END ==
LOC: CT 09:22
PROVIDERS: Family Provider Internal Medicine; PCP Internal Medicine; Referring Provider Internal Medicine Critical Care Medicine; Visit Provider Internal Medicine Critical Care Medicine
DX: J39.8 Other specified diseases of upper respiratory tract (principal); I51.7 Cardiomegaly; R91.8 Other nonspecific abnormal finding of lung field; I34.81 Nonrheumatic mitral (valve) annulus calcification; I25.10 Atherosclerotic heart disease of native coronary artery without angina pectoris; K43.9 Ventral hernia without obstruction or gangrene
CPT/HCPCS: 71260; Q9967

== ENCOUNTER → 2024-07-24 09:12 | Outpatient (CLI) | payer MEDICARE, SELFPAY | PROVIDERS: Family Provider Internal Medicine; PCP Internal Medicine; Referring Provider Student in an Organized Health Care Education/Training Program; Visit Provider Surgery | DX: E11.621 Type 2 diabetes mellitus with foot ulcer (principal); E11.42 Type 2 diabetes mellitus with diabetic polyneuropathy; L97.512 Non-pressure chronic ulcer of other part of right foot with fat layer exposed; L84 Corns and callosities; L53.9 Erythematous condition, unspecified | CPT/HCPCS: 11042; 87070; 87075; 87147; 87205; 99213; 99214 ==

== ENCOUNTER → 2024-07-24 10:26 | Outpatient (CLI) | payer MEDICARE, SELFPAY ==
--- NOTE | 2024-07-24 10:29 | DI.RAD.S_ITS ---
PROCEDURE: XR FOOT RT MIN 3V INDICATIONS: Eval for osteo. Ulcer of distal R 3rd toe. TECHNIQUE: 3 views of the foot were acquired. COMPARISON: [facility], CR, XR FOOT RT MIN 3V, 02/20/2024, 16:24. FINDINGS: Bones: No fractures or dislocations. No suspicious bony lesions. There is an old stable fracture involving the base of the patient's right 5th metatarsal. There is some mild to moderate degenerative change involving the tarsal metatarsal joints. Calcaneal heel spurs are noted at the insertion of the plantar fascia and Achilles tendons. No definite findings to suggest osteomyelitis are identified. Soft tissues: No tibiotalar joint effusion. Achilles tendon appears normal. Atherosclerotic vascular calcifications are noted. IMPRESSION: 1. No definite findings for osteomyelitis involving the right 3rd toe. 2. Stable appearance of a old avulsion fracture involving the base of the right 5th metatarsal. 3. Mild to moderate degenerative changes tarsometatarsal joints. 4. Calcaneal heel spurs. 5. Atherosclerotic vascular calcifications. Dictated by: Trevin Wilhelm M.D. on 07/24/2024 at 14:59 Approved by: Trevin Wilhelm M.D. on 07/24/2024 at 15:13
[2024-07-24 11:40] LABS: Erythrocyte Sedimentation Rate 23 MM/HR (0-20)
[2024-07-24 11:44] LABS: Add Manual Diff / Slide Review NO; Basophils Absolute Auto 100 /uL (0-100); Basophils Percent Auto 0.9 % (0-2); Eosinophils Absolute Auto 300 /uL (0-450); Eosinophils Percent Auto 3.5 % (2-4); Hematocrit 37.7 % (36-46); Hemoglobin 12.1 g/dL (12.0-16.0); Lymphocytes Absolute Auto 1300 /uL (1100-4500); Lymphocytes Percent Auto 16.4 % (25-40); Mean Corpuscular Hemoglobin 27.1 PG (26-34); Mean Corpuscular Volume 84.7 fL (80-100); Monocytes Absolute Auto 500 /uL (0-900); Monocytes Percent Auto 6.6 % (3-14); Neutrophils Absolute Auto 5900 /uL (1500-7000); Neutrophils Percent Auto 72.6 % (50-75); Platelet Count 201 X10^3/uL (150-400); Red Blood Cell Count 4.45 X10^6/uL (4.0-5.2); Red Cell Distribution Width 15.9 % (11.6-14.8); White Blood Cell Count 8.2 X10^3/uL (4.5-11.0)
[2024-07-24 12:00] LABS: Alanine Aminotransferase 21 IU/L (<35); Albumin 3.9 g/dL (3.5-5.0); Albumin Globulin Ratio 1.6 (1.0-2.8); Alkaline Phosphatase 59 U/L (38-126); Aspartate Aminotransferase 28 IU/L (14-36); BUN Creatinine Ratio 22.7 (6-22); Bilirubin Total 0.6 mg/dL (0.2-1.3); Blood Urea Nitrogen 15 mg/dL (7-17); C-Reactive Protein Quant < 0.5 mg/dL (<1.0); Calcium 9.1 mg/dL (8.4-10.2); Carbon Dioxide 28 mmol/L (22-32); Chloride 99 mmol/L (98-107); Estimated Glomerular Filt Rate > 60 mL/min (>60); Globulin 2.5 g/dL (1.7-4.1); Glucose 198 mg/dL (80-110); HEMOLYSIS < 15 (0-50); Potassium 4.7 mmol/L (3.4-5.1); Sodium 136 mmol/L (137-145); Total Protein 6.4 g/dL (6.3-8.2)
[2024-07-24 12:05] LABS: Hemoglobin A1C% w Est Avg Glu 7.8 % (4.0-6.0)
== END ==
PROVIDERS: Family Provider Internal Medicine; PCP Internal Medicine; Referring Provider Surgery; Visit Provider Surgery
DX: E11.621 Type 2 diabetes mellitus with foot ulcer (principal); I70.90 Unspecified atherosclerosis; M77.31 Calcaneal spur, right foot; Z87.81 Personal history of (healed) traumatic fracture
CPT/HCPCS: 36415; 73630; 80053; 83036; 85025; 85651; 86140; 87070; 87075; 87205

== ENCOUNTER → 2024-07-31 10:07 | Outpatient (CLI) | payer MEDICARE, SELFPAY | PROVIDERS: Family Provider Internal Medicine; PCP Internal Medicine; Referring Provider Student in an Organized Health Care Education/Training Program; Visit Provider Surgery | DX: L97.512 Non-pressure chronic ulcer of other part of right foot with fat layer exposed (principal); E11.621 Type 2 diabetes mellitus with foot ulcer; E11.42 Type 2 diabetes mellitus with diabetic polyneuropathy; L84 Corns and callosities; R60.0 Localized edema; L53.9 Erythematous condition, unspecified | CPT/HCPCS: 11042 ==

== ENCOUNTER → 2024-08-07 09:23 | Outpatient (CLI) | payer MEDICARE, SELFPAY | LOC: WC 09:24 | PROVIDERS: Family Provider Internal Medicine; PCP Internal Medicine; Referring Provider Student in an Organized Health Care Education/Training Program; Visit Provider Surgery | DX: L97.512 Non-pressure chronic ulcer of other part of right foot with fat layer exposed (principal); E11.621 Type 2 diabetes mellitus with foot ulcer; L84 Corns and callosities; E11.42 Type 2 diabetes mellitus with diabetic polyneuropathy; R60.0 Localized edema; L53.9 Erythematous condition, unspecified | CPT/HCPCS: 11042 ==

== ENCOUNTER → 2024-08-14 10:05 | Outpatient (CLI) | payer MEDICARE, SELFPAY | LOC: WC 10:06 | PROVIDERS: Family Provider Internal Medicine; PCP Internal Medicine; Referring Provider Student in an Organized Health Care Education/Training Program; Visit Provider Surgery | DX: E11.621 Type 2 diabetes mellitus with foot ulcer (principal); E11.42 Type 2 diabetes mellitus with diabetic polyneuropathy; L97.512 Non-pressure chronic ulcer of other part of right foot with fat layer exposed; L84 Corns and callosities; L53.9 Erythematous condition, unspecified; R60.0 Localized edema | CPT/HCPCS: 11042 ==

== ENCOUNTER → 2024-08-21 10:58 | Outpatient (CLI) | payer MEDICARE, SELFPAY | PROVIDERS: Family Provider Internal Medicine; PCP Internal Medicine; Referring Provider Student in an Organized Health Care Education/Training Program; Visit Provider Surgery | DX: E11.621 Type 2 diabetes mellitus with foot ulcer (principal); E11.42 Type 2 diabetes mellitus with diabetic polyneuropathy; L97.512 Non-pressure chronic ulcer of other part of right foot with fat layer exposed; L84 Corns and callosities; R60.0 Localized edema; L53.9 Erythematous condition, unspecified | CPT/HCPCS: 11042 ==

== ENCOUNTER → 2024-08-28 10:12 | Outpatient (CLI) | payer MEDICARE, SELFPAY | PROVIDERS: Family Provider Internal Medicine; PCP Internal Medicine; Referring Provider Student in an Organized Health Care Education/Training Program; Visit Provider Surgery | DX: E11.621 Type 2 diabetes mellitus with foot ulcer (principal); E11.42 Type 2 diabetes mellitus with diabetic polyneuropathy; L97.512 Non-pressure chronic ulcer of other part of right foot with fat layer exposed; R60.0 Localized edema; L84 Corns and callosities; L53.9 Erythematous condition, unspecified; M20.41 Other hammer toe(s) (acquired), right foot | CPT/HCPCS: 11042; 99213 ==

== ENCOUNTER → 2024-09-04 09:35 | Outpatient (CLI) | payer MEDICARE, SELFPAY | PROVIDERS: Family Provider Internal Medicine; PCP Internal Medicine; Referring Provider Student in an Organized Health Care Education/Training Program; Visit Provider Surgery | DX: E11.621 Type 2 diabetes mellitus with foot ulcer (principal); E11.42 Type 2 diabetes mellitus with diabetic polyneuropathy; L97.512 Non-pressure chronic ulcer of other part of right foot with fat layer exposed; L84 Corns and callosities; R60.0 Localized edema; L53.9 Erythematous condition, unspecified; M20.41 Other hammer toe(s) (acquired), right foot | CPT/HCPCS: 11042 ==

== ENCOUNTER → 2024-09-04 10:11 | Outpatient (CLI) | payer MEDICARE, SELFPAY ==
--- NOTE | 2024-09-04 10:12 | DI.CT.S_ITS ---
PROCEDURE: CT SOFT TISSUE NECK W CON INDICATIONS: H/o tracheal stenosis, sob, eval TECHNIQUE: After the administration of intravenous contrast, 2.0 mm axial sections acquired through the neck and down to the gurjit with inspiration during the arterial phase and expiration during the venous phase. Additional 2.0 mm coronal and sagittal reformats were generated of the contrast enhanced images. For radiation dose reduction, the following was used: automated exposure control. COMPARISON: [facility], CT, CT SOFT TISSUE NECK WO CON, 12/07/2022, 9:47. [facility], CT, CT CHEST W CON, 07/21/2024, 9:38. FINDINGS: Image quality: Excellent. Lymph nodes: No enlarged lymph nodes seen throughout the neck. Vessels: Visualized vasculature appears patent. Atherosclerotic calcification is noted. Neck spaces: In this patient with this given history, scrutiny is given to the trachea. No significant change of the caliber of the trachea can be seen between inspiration and expiration. No significant tracheal abnormality is identified. The oropharynx, nasopharynx, and pharynx demonstrate no mucosal lesions. The vocal cords, false vocal cords, pyriform sinuses, epiglottis, vallecula, and tongue base all appear normal. Extramucosal spaces appear unremarkable. Glands: The parotid and submandibular glands appear normal. The thyroid is not seen. Miscellaneous: Visualized lungs appear clear. Superficial soft tissues appear normal. Bones: No suspicious bony lesions. Visualized sinuses and mastoids appear unremarkable. There is moderate cervical spine degenerative change seen. IMPRESSION: No findings of tracheal stenosis can be seen. No significant change of the caliber of the trachea can be seen between inspiration and expiration. Additional findings: Moderate cervical spine degenerative change Thyroidectomy Dictated by: Curry Yee M.D. on 09/04/2024 at 15:47 Approved by: Curry Yee M.D. on 09/04/2024 at 15:52
[2024-09-04 10:53] LABS: Estimated Glomerular Filt Rate > 60 mL/min (>60)
== END ==
PROVIDERS: Radiology Diagnostic Radiology; Family Provider Internal Medicine; PCP Internal Medicine; Referring Provider Internal Medicine Critical Care Medicine; Visit Provider Internal Medicine Critical Care Medicine
DX: J39.8 Other specified diseases of upper respiratory tract (principal); M47.812 Spondylosis without myelopathy or radiculopathy, cervical region; E89.0 Postprocedural hypothyroidism; E11.621 Type 2 diabetes mellitus with foot ulcer; E11.42 Type 2 diabetes mellitus with diabetic polyneuropathy; L97.512 Non-pressure chronic ulcer of other part of right foot with fat layer exposed; L84 Corns and callosities; R60.0 Localized edema; L53.9 Erythematous condition, unspecified; M20.41 Other hammer toe(s) (acquired), right foot
CPT/HCPCS: 11042; 36415; 70492; 82565; Q9967

== ENCOUNTER → 2024-09-11 10:08 | Outpatient (CLI) | payer MEDICARE, SELFPAY | LOC: WC 10:09 | PROVIDERS: Family Provider Internal Medicine; PCP Internal Medicine; Referring Provider Student in an Organized Health Care Education/Training Program; Visit Provider Surgery | DX: L97.512 Non-pressure chronic ulcer of other part of right foot with fat layer exposed (principal); E11.621 Type 2 diabetes mellitus with foot ulcer; E11.42 Type 2 diabetes mellitus with diabetic polyneuropathy; M20.41 Other hammer toe(s) (acquired), right foot; L84 Corns and callosities; L53.9 Erythematous condition, unspecified; R60.0 Localized edema | CPT/HCPCS: 15275; Q4160 ==

== ENCOUNTER → 2024-09-18 09:54 | Outpatient (CLI) | payer MEDICARE, SELFPAY | LOC: WC 09:55 | PROVIDERS: Family Provider Internal Medicine; PCP Internal Medicine; Referring Provider Internal Medicine; Visit Provider Surgery | DX: L97.512 Non-pressure chronic ulcer of other part of right foot with fat layer exposed (principal); E11.621 Type 2 diabetes mellitus with foot ulcer; E11.42 Type 2 diabetes mellitus with diabetic polyneuropathy; R60.0 Localized edema; L84 Corns and callosities; L53.9 Erythematous condition, unspecified | CPT/HCPCS: 15275; Q4160 ==

== ENCOUNTER → 2024-09-25 14:09 | Outpatient (CLI) | payer MEDICARE, SELFPAY | LOC: WC 14:09 | PROVIDERS: Family Provider Internal Medicine; PCP Internal Medicine; Referring Provider Student in an Organized Health Care Education/Training Program; Visit Provider Physician Assistant | DX: E11.628 Type 2 diabetes mellitus with other skin complications (principal); R60.0 Localized edema; L84 Corns and callosities; M20.41 Other hammer toe(s) (acquired), right foot | CPT/HCPCS: 99212; 99213 ==

== ENCOUNTER → 2024-10-02 10:30 | Outpatient (CLI) | payer MEDICARE, OTHER, SELFPAY | PROVIDERS: Family Provider Internal Medicine; PCP Internal Medicine; Referring Provider Student in an Organized Health Care Education/Training Program; Visit Provider Surgery | DX: Z86.31 Personal history of diabetic foot ulcer (principal); E11.41 Type 2 diabetes mellitus with diabetic mononeuropathy | CPT/HCPCS: 99212; 99213 ==

== ENCOUNTER → 2024-10-15 09:36 | Outpatient (CLI) | payer MEDICARE, SELFPAY ==
--- NOTE | 2024-10-15 09:39 | DI.ECHO.S_ITS ---
[place] [facility] : : [address] : [place] : : [id number] : : Phone: [phone] Echocardiogram Report + + :Name: BEVERLEY KUMAR Study Date: 10/15/2024 Height: 63 in : :[facility] ReadingLocation: Weight: 246 lb : : Gender: Female BSA: 2.1 m2 : :: 1945 Age: 79 yrs BP: 146/68 mmHg: :Reason For Study: AORTIC VALVE STENOSIS : :Ordering Physician: ESHA, : :LOLI Performed By: Arvind Borrero : :Referring: LOLI HU : + + Interpretation Summary Technically difficult study. 1) Normal left ventricular thickness, size, wall motion, and systolic function (EF 60-65%). 2) Normal right ventricular size and function. 3) Moerate aortic stenosis present (valve area 1.3cm2, mean gradient 21mmHg, severity ratio 0.37). 4) There is mild mitral stenosis (mean gradient 8mmHg). 5) Compared to the Echo done 10/04/2023, aortic stenosis has progressed slightly from mild-moderate to moderate on this study. Procedure: A two-dimensional transthoracic echocardiogram with color flow and Doppler was performed. The study quality was technically difficult. Comparison is made with the echocardiogram of 10/04/2023. The patient was in normal sinus rhythm during the exam. Left Ventricle: The left ventricle is normal in size. There is normal left ventricular wall thickness. There is no ventricular septal defect visualized. The ejection fraction is estimated to be 70-75%. There are no focal wall motion abnormalities. Diastolic parameters suggest a relaxation abnormality of the left ventricle, consistent with probable normal filling pressures. Right Ventricle: The right ventricle is normal in size and function. Atria: The left atrium is moderately dilated. Right atrial size is normal. There is no Doppler evidence for an interatrial shunt. Mitral Valve: The mitral valve leaflets are moderately calcified. There is moderate mitral annular calcification. There is mild mitral stenosis. The mitral valve mean gradient is 8.0 mmHg. There is trace mitral regurgitation. Aortic Valve: The aortic valve is not well visualized. There is moderate aortic stenosis. The peak aortic velocity is 2.96 m/sec. The aortic valve mean gradient is 21.4 mmHg. The calculated aortic valve area is 1.3 cm2. No aortic regurgitation is present. Tricuspid Valve: The tricuspid valve is not well visualized. No tricuspid regurgitation. Pulmonic Valve: The pulmonic valve is not well visualized. Great Vessels: The aortic root is normal size. The dimensions of the ascending aorta are normal. The pulmonary artery is normal size. The IVC is of normal diameter and collapses greater than 50% with a sniff. This suggests a low right atrial pressure of 3 mm Hg. Pericardium/ Pleura There is no pericardial effusion. There is no pleural effusion. MMode/2D Measurements & Calculations LVIDd: 5.0 cm LVOT diam: 2.1 cm LVIDs: 2.5 cm Ao root diam: 2.6 cm FS: 49.6 % asc Aorta Diam: 2.6 cm EPSS: 1.0 cm IVSd: 0.82 cm LVPWd: 1.0 cm LV pineda. diameter/BSA (cm/m^2): 2.3 LV sys. diameter/BSA (cm/m^2): 1.2 LA A2 area: 19.5 cm2 RA long axis: 3.9 cm LA A4 area: 24.1 cm2 RA area: 9.0 cm2 LA length (vol): 5.5 cm RA vol: 17.4 ml LA vol: 72.1 ml RA : 8.2 ml/m2 LA vol index: 34.1 ml/m2 IVC diam: 2.3 cm RVD1 (basal): 3.8 cm RVD2 (mid): 3.3 cm TAPSE: 3.3 cm Doppler Measurements & Calculations Ao V2 max: 295.8 cm/sec LVOT Max Phuc: 113.9 cm/sec Ao V2 mean: 220.3 cm/sec LV V1 max P.2 mmHg Ao max P.0 mmHg LV V1 VTI: 28.6 cm Ao mean P.4 mmHg LORIN(I,D): 1.3 cm2 Ao V2 VTI: 76.3 cm LORIN(V,D): 1.3 cm2 sev ratio: 0.37 LORIN indexed to BSA (cm^2/m^2): 0.61 MV E max phuc: 114.9 cm/sec PA V2 max: 101.2 cm/sec MV A max phuc: 134.5 cm/sec PA V2 mean: 75.2 cm/sec MV E/A: 0.85 PA mean P.6 mmHg Med Peak E' Phuc: 5.1 cm/sec PA pr(Accel): -4.9 mmHg E/E' med: 22.5 Lat Peak E' Phuc: 7.0 cm/sec E/E' lat: 16.4 E/e' average: 19.5 MV dec time: 0.33 sec MVA(VTI): 1.6 cm2 MV V2 mean: 135.6 cm/sec SV(LVOT): 98.8 ml MV mean P.0 mmHg MV V2 VTI: 61.9 cm Reading Physician:11:55 AM
== END ==
LOC: ECHO 09:37
PROVIDERS: Family Provider Internal Medicine; PCP Internal Medicine; Referring Provider Internal Medicine Cardiovascular Disease; Visit Provider Internal Medicine Cardiovascular Disease
DX: I08.0 Rheumatic disorders of both mitral and aortic valves (principal)
CPT/HCPCS: 93306

== ENCOUNTER → 2024-12-03 11:52 | Outpatient (CLI) | payer MEDICARE, OTHER, SELFPAY ==
[2024-12-03 12:35] LABS: Hemoglobin A1C% w Est Avg Glu 7.4 % (4.0-6.0)
== END ==
LOC: LAB 11:54
PROVIDERS: Podiatrist; Family Provider Internal Medicine; PCP Internal Medicine; Referring Provider Orthopaedic Surgery; Visit Provider Orthopaedic Surgery
DX: R73.9 Hyperglycemia, unspecified (principal)
CPT/HCPCS: 36415; 83036

== ENCOUNTER → 2024-12-11 10:30 | Outpatient (CLI) | payer MEDICARE, OTHER, SELFPAY | PROVIDERS: Family Provider Internal Medicine; PCP Internal Medicine; Referring Provider Internal Medicine; Visit Provider Surgery | DX: E11.621 Type 2 diabetes mellitus with foot ulcer (principal); E11.42 Type 2 diabetes mellitus with diabetic polyneuropathy; L97.512 Non-pressure chronic ulcer of other part of right foot with fat layer exposed; R60.0 Localized edema; L53.9 Erythematous condition, unspecified; M20.41 Other hammer toe(s) (acquired), right foot | CPT/HCPCS: 11042; 87070; 87075; 87077; 87186; 87205; 99213 ==

== ENCOUNTER → 2024-12-11 11:54 | Outpatient (CLI) | payer MEDICARE, OTHER, SELFPAY ==
--- NOTE | 2024-12-11 11:55 | DI.RAD.S_ITS ---
PROCEDURE: XR FOOT RT MIN 3V INDICATIONS: eval for osteo TECHNIQUE: 3 views of the foot were acquired. COMPARISON: [facility], CR, XR FOOT RT MIN 3V, 07/24/2024, 9:50. FINDINGS: Bones: No acute fractures or dislocations. Old 5th metatarsal base fracture. No suspicious bony lesions. Degenerative IP narrowing. There is a loose osseous fragment within the region of the 3rd distal phalanx. Soft tissues: No tibiotalar joint effusion. Achilles tendon appears normal. IMPRESSION: Loose osseous fragment within the 3rd distal phalanx region. This could represent an eroded fragment. Finding is suspicious for osteomyelitis. As indicated, MRI may be obtained. Dictated by: Echo Zaman M.D. on 12/11/2024 at 15:37 Approved by: Echo Zaman M.D. on 12/11/2024 at 15:41
== END ==
PROVIDERS: Family Provider Internal Medicine; PCP Internal Medicine; Referring Provider Surgery; Visit Provider Surgery
DX: E11.621 Type 2 diabetes mellitus with foot ulcer (principal); M24.074 Loose body in right toe joint(s); Z87.81 Personal history of (healed) traumatic fracture
CPT/HCPCS: 73630; 87070; 87075; 87205

== ENCOUNTER → 2024-12-18 11:37 | Outpatient (CLI) | payer MEDICARE, OTHER, SELFPAY | PROVIDERS: Family Provider Internal Medicine; PCP Internal Medicine; Referring Provider Student in an Organized Health Care Education/Training Program; Visit Provider Surgery | DX: E11.621 Type 2 diabetes mellitus with foot ulcer (principal); L97.512 Non-pressure chronic ulcer of other part of right foot with fat layer exposed; M20.41 Other hammer toe(s) (acquired), right foot; R60.0 Localized edema; E11.69 Type 2 diabetes mellitus with other specified complication; M86.171 Other acute osteomyelitis, right ankle and foot; E11.40 Type 2 diabetes mellitus with diabetic neuropathy, unspecified; Z79.2 Long term (current) use of antibiotics | CPT/HCPCS: 11042 ==

== ENCOUNTER → 2024-12-25 11:19 | Outpatient (CLI) | payer MEDICARE, OTHER, SELFPAY | PROVIDERS: Family Provider Internal Medicine; PCP Internal Medicine; Referring Provider Orthopaedic Surgery Foot and Ankle Surgery; Visit Provider Surgery | DX: E11.621 Type 2 diabetes mellitus with foot ulcer (principal); L97.512 Non-pressure chronic ulcer of other part of right foot with fat layer exposed; L98.8 Other specified disorders of the skin and subcutaneous tissue; R60.0 Localized edema; E11.40 Type 2 diabetes mellitus with diabetic neuropathy, unspecified | CPT/HCPCS: 11042 ==

== ENCOUNTER → 2025-01-01 11:34 | Outpatient (CLI) | payer MEDICARE, OTHER, SELFPAY ==
[2025-01-01 12:54] LABS: Add Manual Diff / Slide Review NO; Basophils Absolute Auto 0 /uL (0-100); Basophils Percent Auto 0.5 % (0-2); Eosinophils Absolute Auto 300 /uL (0-450); Hematocrit 36.9 % (36-46); Hemoglobin 11.9 g/dL (12.0-16.0); Lymphocytes Absolute Auto 1500 /uL (1100-4500); Lymphocytes Percent Auto 17.2 % (25-40); Mean Corpuscular HGB Conc 32.4 % (30-36); Mean Corpuscular Hemoglobin 27.5 PG (26-34); Mean Corpuscular Volume 84.8 fL (80-100); Monocytes Absolute Auto 500 /uL (0-900); Monocytes Percent Auto 6.2 % (3-14); Neutrophils Absolute Auto 6200 /uL (1500-7000); Neutrophils Percent Auto 73.1 % (50-75); Platelet Count 206 X10^3/uL (150-400); Red Blood Cell Count 4.35 X10^6/uL (4.0-5.2); White Blood Cell Count 8.5 X10^3/uL (4.5-11.0)
[2025-01-01 13:17] LABS: Alanine Aminotransferase 17 IU/L (<35); Albumin 4.1 g/dL (3.5-5.0); Albumin Globulin Ratio 1.5 (1.0-2.8); Alkaline Phosphatase 66 U/L (38-126); Aspartate Aminotransferase 25 IU/L (14-36); Bilirubin Total 0.5 mg/dL (0.2-1.3); Blood Urea Nitrogen 13 mg/dL (7-17); Calcium 9.1 mg/dL (8.4-10.2); Carbon Dioxide 29 mmol/L (22-32); Chloride 101 mmol/L (98-107); Estimated Glomerular Filt Rate > 60 mL/min (>60); Globulin 2.7 g/dL (1.7-4.1); Glucose 173 mg/dL (80-110); HEMOLYSIS < 15 (0-50); Potassium 4.4 mmol/L (3.4-5.1); Sodium 138 mmol/L (137-145); Total Protein 6.8 g/dL (6.3-8.2)
== END ==
PROVIDERS: Family Provider Internal Medicine; PCP Internal Medicine; Referring Provider Surgery; Visit Provider Surgery
DX: E11.621 Type 2 diabetes mellitus with foot ulcer (principal)
CPT/HCPCS: 36415; 80053; 85025

== ENCOUNTER → 2025-01-01 11:41 | Outpatient (CLI) | payer MEDICARE, OTHER, SELFPAY | PROVIDERS: Family Provider Internal Medicine; PCP Internal Medicine; Referring Provider Student in an Organized Health Care Education/Training Program; Visit Provider Surgery | DX: E11.621 Type 2 diabetes mellitus with foot ulcer (principal); L97.512 Non-pressure chronic ulcer of other part of right foot with fat layer exposed; L53.8 Other specified erythematous conditions; E11.42 Type 2 diabetes mellitus with diabetic polyneuropathy; R60.0 Localized edema | CPT/HCPCS: 11042 ==

== ENCOUNTER → 2025-01-08 11:32 | Outpatient (CLI) | payer MEDICARE, OTHER, SELFPAY | LOC: WC 11:33 | PROVIDERS: Family Provider Internal Medicine; PCP Internal Medicine; Referring Provider Student in an Organized Health Care Education/Training Program; Visit Provider Surgery | DX: E11.621 Type 2 diabetes mellitus with foot ulcer (principal); L97.512 Non-pressure chronic ulcer of other part of right foot with fat layer exposed; E11.42 Type 2 diabetes mellitus with diabetic polyneuropathy; L84 Corns and callosities | CPT/HCPCS: 11042; 99213 ==

== ENCOUNTER → 2025-01-22 11:32 | Outpatient (CLI) | payer MEDICARE, OTHER, SELFPAY | PROVIDERS: Family Provider Internal Medicine; PCP Internal Medicine; Referring Provider Student in an Organized Health Care Education/Training Program; Visit Provider Surgery | DX: E11.621 Type 2 diabetes mellitus with foot ulcer (principal); L97.512 Non-pressure chronic ulcer of other part of right foot with fat layer exposed; L84 Corns and callosities; L08.9 Local infection of the skin and subcutaneous tissue, unspecified; E11.42 Type 2 diabetes mellitus with diabetic polyneuropathy | CPT/HCPCS: 11042 ==

== ENCOUNTER → 2025-02-05 13:37 | Outpatient (CLI) | payer MEDICARE, OTHER, SELFPAY | LOC: WC 13:38 | PROVIDERS: Family Provider Internal Medicine; PCP Internal Medicine; Referring Provider Student in an Organized Health Care Education/Training Program; Visit Provider Surgery | DX: E11.621 Type 2 diabetes mellitus with foot ulcer (principal); E11.42 Type 2 diabetes mellitus with diabetic polyneuropathy; L97.512 Non-pressure chronic ulcer of other part of right foot with fat layer exposed; L84 Corns and callosities; L53.9 Erythematous condition, unspecified; M86.171 Other acute osteomyelitis, right ankle and foot; Z79.2 Long term (current) use of antibiotics | CPT/HCPCS: 11042; 87070; 87075; 87077; 87147; 87186; 87205; 99213 ==

== ENCOUNTER → 2025-02-09 15:02 | Outpatient (CLI) | payer MEDICARE, OTHER, SELFPAY | PROVIDERS: Family Provider Internal Medicine; PCP Internal Medicine; Referring Provider Internal Medicine; Visit Provider Surgery | DX: E11.621 Type 2 diabetes mellitus with foot ulcer (principal); L97.512 Non-pressure chronic ulcer of other part of right foot with fat layer exposed; L53.8 Other specified erythematous conditions; E11.40 Type 2 diabetes mellitus with diabetic neuropathy, unspecified; L84 Corns and callosities; R60.0 Localized edema | CPT/HCPCS: 11042 ==

== ENCOUNTER → 2025-02-19 10:57 | Outpatient (CLI) | payer MEDICARE, OTHER, SELFPAY ==
--- NOTE | 2025-02-19 | OV.WND_ITS ---
PROGRESS NOTE DETAILS PATIENT NAME: BEVERLEY KUMAR PATIENT NUMBER: [id number] CLINICIAN: PARUL SALVADOR RN PATIENT DATE OF : 1945 PHYSICIAN / CORPORATION LAWYER: JUANISSTARR PATIENT SUBJECTIVE CHIEF COMPLAINT THIS INFORMATION WAS OBTAINED FROM THE PATIENT. RIGHT THIRD TOE GENERAL NOTES DIABETIC ULCER ON RIGHT THIRD TOE. ALLERGIES GABAPENTIN (REACTION: ANGIOEDEMA), CODEINE (REACTION: HALLUCINATIONS), ADHESIVE TAPE (REACTION: BLISTER) HPI THIS INFORMATION WAS OBTAINED FROM THE PATIENT. THE FOLLOWING HPI ELEMENTS WERE DOCUMENTED FOR THE PATIENT'S WOUND: LOCATION: R 3RD TOE DURATION: 11/17/24 CONTEXT: DFU THE PATIENT IS A 79 YEAR OLD FEMALE WITH DIABETES, OBESITY, AND COPD WHO RETURNS TODAY FOR FOLLOW UP OF RECURRENT DIABETIC ULCER ON THE TIP OF THE RIGHT 3RD TOE. THE PATIENT IS RECEIVING DRESSING CHANGES WITH IODOFLEX WITH FELT PAD AND POSTOP SURGICAL SHOE FOR PRESSURE OFFLOADING. SHE REMAINS ON DOXYCYCLINE FOR SUPPRESSION. THE PATIENT HAS NOT HAD ANY FURTHER REDNESS OR SWELLING. SHE HAS NOT HAD ANY FEVER OR CHILLS. THE PATIENT WAS RECENTLY SEEN BY DR. IBRAHIM AND SHE PLANS TO PROCEED WITH AMPUTATION OF THE RIGHT 3RD TOE WHEN SHE IS CLEARED BY ENT. SHE REPORTS A GOOD APPETITE AND DENIES HAVING ANY OTHER RECENT CHANGES IN HER OVERALL HEALTH. RECENT HEMOGLOBIN A1C WAS 7.4. ABIS DONE AUGUST 2024 SHOWED FLOW ADEQUATE FOR HEALING. MRI FROM MARCH 2024 DID SHOW SUGGESTION OF OSTEOMYELITIS 3RD DISTAL PHALANX AND SHE WAS TREATED WITH A PROLONGED COURSE OF ANTIBIOTICS PRIOR TO THE ULCER HEALING. X-RAYS FROM DECEMBER 11, 2024 ARE SUSPICIOUS FOR PERSISTENT OSTEOMYELITIS. ON EXAM TODAY THE ULCER IS IMPROVED AND HAS SOME DRIED DRAINAGE. THE PATIENT WAS SEEN BY ENT LAST WEEK AND REFERRED TO A SPECIALIST REGARDING FROZEN VOCAL CORD. LABS: 02/05/25: CULTURE GREW LIGHT GROWTH STAPHYLOCOCCUS AUREUS 12/11/24: CULTURE GREW STAPHYLOCOCCUS AUREUS 12/11/24: X-RAY RIGHT FOOT: LOOSE OSSEOUS FRAGMENT WITHIN THE 3RD DISTAL PHALANX REGION. THIS COULD REPRESENT AN ERODED FRAGMENT. FINDING IS SUSPICIOUS FOR OSTEOMYELITIS. 10/15/24: ECHOCARDIOGRAM SHOWED EJECTION FRACTION OF 60-65%, MODERATE AORTIC STENOSIS MEDICAL HISTORY THIS INFORMATION WAS OBTAINED FROM THE CHART, PATIENT. PATIENT HAS A MEDICAL HISTORY OF: BEVERLEY KUMAR [id number] 1945 THYROID DISEASE ASTHMA TYPE II DIABETES ARTHRITIS SARCOIDOSIS NON HODGKINS LYMPHOMA CELLULITIS COLON CANCER BOWEL OBSTRUCTION GLAUCOMA HEART MURMUR TRACHEAL STENOSIS RADIATION ADVERSE EFFECT HYPERLIPIDEMIA HYPERTENSION HISTORY OF PFTS GASTRO ESOPH. REFLUX DISEASE (GERD) ACQUIRED SUBGLOTTIC STENOSIS OBESITY LOCAL NEURODERMATITIS ROTATOR CUFF SYNDROME GROIN PAIN IRON DEFICIENCY ANEMIA OTHER PROBLEMS RELATED TO LIFESYLE RETINAL DETACHMENT PREOPERATIVE CARDIOVASCULAR EXAMINATION UPPER RESPIRATORY INFECTION (URI) INSOMINA CHEST WALL LUMP INFLUENZA COMMUNITY ACQUIRED PNEUMONIA GLAUCOMA MASS OF CHEST WALL PAIN IN RIGHT SHOULDER ACUTE SINUSITIS ACUTE SCIATICA SPASM OF MUSCLE ARTHRITIS OF BOTH KNEES SEVERE OBESITY CARPAL TUNNEL SYNDROME OF LEFT WRIST STRAIN OF MUSCLE OF LOWER BACK GENERALIZED OSTEOARTHRITIS DYSPHAGIA DYSPNEA MITRAL REGURGITATION AORTIC VALVE STENOSIS BEVERLEY KUMAR [id number] 1945 RESPIRATORY OBSTRUCTION HAMMER TOE 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 PATIENT HAS A SURGICAL HISTORY OF: - (1975) COLON CANCER- (1983 STAGE B2) HERNIA REPAIR- (1983) BOWEL RESECTION- (2001) BRONCHIAL DILATION- (2004, 2006, 2008, 2010, 2012) ABDOMINAL HERNIA- (2012) EYE SURGERY- (08/01/2014) PORT PLACEMENT- (03/2015) TRACHEOSTOMY- BILATERAL CARPAL TUNNEL RELEASE- BASAL CELL CARCINOMA REMOVAL- 12/19/2021 (NOSE) EYE SURGERY (RIGHT EYE)- 07/09/2024 (REMOVAL OF CALCIUM DEPOSITS) OBJECTIVE VITALS HEIGHT/LENGTH: 63 IN (160.02 CM), WEIGHT: 246.9 LBS (112.23 KGS), BMI: 43.7, TEMPERATURE: 97.4 ?F (36.33 ?C), PULSE: 80 BPM, RESPIRATORY RATE: 18 BREATHS/MIN, BLOOD PRESSURE: 132/64 MMHG, PULSE OXIMETRY: 96 %. GENERAL NOTES GLUCOSE PER PATIENT, 152. PHYSICAL EXAM CONSTITUTIONAL: VITAL SIGNS REVIEWED AND NOTED. WELL DEVELOPED, WELL NOURISHED, AND IN NO ACUTE DISTRESS. ALERT AND ORIENTED X3. RESPIRATORY: EVEN RESPIRATIONS WITHOUT USE OF ACCESSORY MUSCLES. NO INTERCOASTAL RETRACTIONS NOTED. EVEN AND NON LABORED RESPIRATION. INTEGUMENTARY (HAIR, SKIN): NO ERYTHEMA. NO SWELLING OR TENDERNESS. SEE WOUND ASSESSMENT. SKIN WARM AND DRY. NO RASHES. BEVERLEY KUMAR [id number] 1945 NEUROLOGICAL: DECREASED LOWER EXTREMITY SENSATION. PSYCHIATRIC: ORIENTATION TO TIME, PLACE AND PERSON: NORMAL AFFECT WITH NORMAL THOUGHT PATTERN. ADDITIONAL INFORMATION THE PATIENT'S POTENTIAL TO HEAL IS: POOR. WOUND ASSESSMENT(S) WOUND #12 RIGHT TOE - THIRD IS A CHRONIC PETTIT GRADE 2 DIABETIC ULCER ACQUIRED ON 11/17/2024 AND HAS RECEIVED A STATUS OF NOT HEALED. INITIAL WOUND ENCOUNTER MEASUREMENTS ARE 0.1CM LENGTH X 0.1CM WIDTH X 0.1 CM DEPTH, WITH AN AREA OF 0.01 SQ CM AND A VOLUME OF 0.001 CUBIC CM.INITIAL WOUND ENCOUNTER PREVIOUS MEASUREMENTS FROM 02/09/2025 ARE 0.2CM LENGTH X 0.1CM WIDTH X 0.3CM DEPTH, WITH AN AREA OF 0.02 SQ CM AND A VOLUME OF 0.006 CUBIC CM. ADIPOSE IS EXPOSED. NO TUNNELING HAS BEEN NOTED. NO SINUS TRACT HAS BEEN NOTED. NO UNDERMINING HAS BEEN NOTED. THERE IS A SMALL AMOUNT OF SEROSANGUINEOUS DRAINAGE NOTED WHICH HAS NO ODOR. THE PATIENT REPORTS A WOUND PAIN OF LEVEL 0/10. THE WOUND MARGIN IS CALLUS WOUND BED HAS NO, GRANULATION, YES SLOUGH, NO ESCHAR, NO EPITHELIALIZATION. THE PERIWOUND SKIN EXHIBITED EDEMA, CALLUS AND ERYTHEMA. THE PERIWOUND SKIN DID NOT EXHIBIT BRAWNY INDURATION, EXCORIATION, INDURATION, CREPITUS, FLUCTUANCE, RASH, ATROPHIE JUSTINE, CYANOSIS, ECCHYMOSIS, HEMOSIDEROSIS, PALLOR AND RUBOR. THE PERIWOUND SKIN WAS NOT FRIABLE. THE TEMPERATURE OF THE PERIWOUND SKIN IS WNL. PERIWOUND SKIN DOES NOT EXHIBIT SIGNS OR SYMPTOMS OF INFECTION. LOCAL PULSE IS PALPABLE. ADDITIONAL INFORMATION OTHER DEVITALIZED TISSUE PRESENT: BIOFILM CURLY/VASCULAR COMPLETED?: YES RESULTS?: RLE:1.18 ASSESSMENT ACTIVE PROBLEMS ICD-10 (ENCOUNTER DIAGNOSIS) E11.621 - TYPE 2 DIABETES MELLITUS WITH FOOT ULCER (ENCOUNTER DIAGNOSIS) E11.42 - TYPE 2 DIABETES MELLITUS WITH DIABETIC POLYNEUROPATHY (ENCOUNTER DIAGNOSIS) M20.41 - OTHER HAMMER TOE(S) (ACQUIRED), RIGHT FOOT (ENCOUNTER DIAGNOSIS) L97.512 - NON-PRESSURE CHRONIC ULCER OF OTHER PART OF RIGHT FOOT WITH FAT LAYER EXPOSED GENERAL NOTES RECURRENT DIABETIC ULCER PLANTAR RIGHT 3RD TOE WITH OSTEOMYELITIS, LARGER, ERYTHEMA AND SWELLING RIGHT 3RD TOE IMPROVED THE FOLLOWING FACTORS HAVE BEEN IDENTIFIED THAT MAY AFFECT WOUND HEALING: DEVITALIZED TISSUE BIOFILM INFECTION DIABETES NEUROPATHY PRESSURE GOALS: REMOVE DEVITALIZED TISSUE REMOVE AND PREVENT BIOFILM TREAT INFECTION REDUCE PRESSURE WOUND CLOSURE PREVENT RECURRENCE BEVERLEY KUMAR [id number] 1945 PLAN: DEBRIDEMENT, CONTINUE DRESSING CHANGES WITH IODOFLEX, USE FELT PAD AND POSTOP SURGICAL SHOE FOR PRESSURE OFFLOADING, CONTINUE DOXYCYCLINE 100 MG P.O. B.I.D. UNTIL SURGERY, ORDER CBC INCOMPLETE METABOLIC PANEL, CONTINUE PROTEIN SUPPLEMENTATION, FOLLOW UP IN 1 WEEK FOR A RECHECK. PROCEDURES WOUND #12 WOUND #12 (DIABETIC ULCER) IS LOCATED ON THE RIGHT TOE - THIRD. A SELECTIVE DEBRIDEMENT WITH A TOTAL AREA DEBRIDED OF 0.12 SQ CM. WAS PERFORMED BY STARR OLIVAREZ MD. TO REMOVE DEVITALIZED TISSUE: BIOFILM, CALLUS, EXUDATE AND SLOUGH. THE FOLLOWING INSTRUMENT(S) WERE USED: CURETTE. PAIN CONTROL WAS ACHIEVED USING EMLA LIDOCAINE/PRILOCAINE 2.5%/2.5%. A TIME OUT WAS CONDUCTED PRIOR TO THE START OF THE PROCEDURE. A MINIMAL AMOUNT OF BLEEDING WAS CONTROLLED WITH PRESSURE. THE PROCEDURE WAS TOLERATED WELL WITH A PAIN LEVEL OF 0 THROUGHOUT AND A PAIN LEVEL OF 0 FOLLOWING THE PROCEDURE. POST DEBRIDEMENT MEASUREMENTS: 0.3CM LENGTH X 0.4CM WIDTH X 0.1CM DEPTH; WITH AN AREA OF 0.12 SQ CM AND A VOLUME OF 0.012 CUBIC CM. PLAN WOUND ORDERS: WOUND #12 RIGHT TOE - BALANCE STAFF STAKER HYGIENE HAND HYGIENE - WASH HANDS BEFORE AND AFTER WOUND CARE. CALL THE WOUND CENTER AT [phone] IF YOU HAVE SIGNS OR SYMPTOMS OF INFECTION, FEVER CHILLS OR SHAKES, INCREASED DRAINAGE, INCREASED ODOR OR UNUSUAL REDNESS. AFTER WOUND CENTER HOURS PLEASE NOTIFY YOUR PCP OR GO TO THE EMERGENCY ROOM. CLEANSER CLEANSE WOUND WITH NORMAL SALINE CLEANSE WOUND AND MILADIS WOUND WITH A NON-CYTOTOXIC WOUND CLEANSER. - VASHE USED IN CLINIC. MAY SHOWER, LEAVE WOUND DRESSING INTACT. COVER WOUND DRESSING WITH A WATERPROOF BARRIER. KEEP DRESSING DRY. NO BATHS PLEASE. PROCEDURE / ANESTHETIC 5% TOPICAL LIDOCAINE TO WOUND BED PRIOR TO PROCEDURE, IN CLINIC ONLY. DRESSING ORDERS APPLY DRESSING(S) AND SECURE WITH: - IODOFLEX TO WOUND BED, COVERED WITH OPTIFOAM (PINK SIDE OUT AWAY FROM WOUND), TAPE. DRESSING CHANGE FREQUENCY CHANGE DRESSING EVERY OTHER DAY. CHANGE DRESSING IF IT BECOMES SOILED OR WET. OFF-LOADING / PRESSURE RELIEF USE/WEAR WHEN WALKING: - TOE LIFT AND POST-OP SANDAL. LAMBS WOOL BETWEEN TOES ADDITIONAL ORDERS: DIETARY TAKE VITAMIN C 1000MG BY MOUTH DAILY. TAKE ZINC 25MG BY MOUTH DAILY. FOLLOW A DIABETIC DIET. INCREASE THE PROTEIN IN YOUR DIET. - DIABETIC FRIENDLY PROTEIN SUPPLEMENT, SUCH GLUCERNA, AIM FOR 30 GRAMS BETWEEN MEALS. FOLLOW-UP APPOINTMENTS RETURN APPOINTMENT 1 WEEK OTHER ORDERS: - CONTINUE ON DOXYCYCLINE PRESCRIBED. REFILL SENT TO YOUR PHARMACY. SCRIBING ATTESTATION I ATTEST, THE NURSE, THAT I SCRIBED THESE ORDERS FOR THE WOUND CARE PROVIDER. PROVIDER REVIEW AND ATTESTATION: BEVERLEY KUMAR [id number] 1945 REVIEWED AND EVALUATED LABS. REVIEWED HOSPITAL RECORDS. DISCUSSED THE PLAN OF CARE @ BEDSIDE WITH - THE PATIENT PLACE PATIENT ON PALLIATIVE CARE DUE TO: - CHRONIC OSTEOMYELITIS, SCHEDULED FOR AMPUTATION I AGREE AND ATTEST TO THE ABOVE INFORMATION PROVIDED FROM OTHER LICENSED PROFESSIONALS. ANCILLARY SERVICES: LABORATORY: OTHER LABS - CBC, CMP. PLEASE GET LABS DRAWN TODAY. MEDICATIONS PRESCRIBED: DOXYCYCLINE MONOHYDRATE - ORAL 100 MG 1 TABLET ONCE DAILY FOR 2 WEEKS STARTING 02/19/2025 PLAN OF CARE: 01. ENSURE/ESTABLISH OPTIMAL BLOOD FLOW : - COMPLETE LOWER EXTREMITY ASSESSMENT STATUS: CONTINUED DATE: 02/05/2025 - PERFORM NON-INVASIVE VASCULAR TESTING (I.E. CURLY) AND DOCUMENT FINDINGS. CONSIDER REPEATING WHEN WOUND HEALING <40% AFTER 30 DAYS OF WOUND CARE. STATUS: COMPLETED DATE: 12/11/2024 02. ASSESS FOR/TREAT INFECTION : - EVALUATE FOR SIGNS AND SYMPTOMS OF INFECTION AND DOCUMENT FINDINGS. STATUS: CONTINUED DATE: 02/05/2025 03. DEBRIDE WEEKLY OR MORE OFTEN PRN : - EVALUATE PATIENT IN CENTER WEEKLY TO ASSESS WOUND BED AND MARGINS FOR NEED FOR DEBRIDEMENT. STATUS: CONTINUED DATE: 02/05/2025 04. OPTIMIZE GLUCOSE CONTROL AND NUTRITION : - ORDER/REVIEW PERTINENT LABS TO EVALUATE RENAL FUNCTION, GLUCOSE CONTROL, AND NUTRITIONAL STATUS. STATUS: CONTINUED DATE: 02/05/2025 05. OFFLOADING PLAN : - EVALUATE PLAN FOR OFFLOADING STATUS: CONTINUED DATE: 02/05/2025 06. OPTIMIZE HOST FACTORS: - ASSESS AND REVIEW PATIENT HISTORY FOR WOUND ETIOLOGY, CO-MORBID CONDITIONS, MEDICATION REGIME, AND SMOKING HISTORY. STATUS: CONTINUED DATE: 02/05/2025 07. DRESSING SELECTION : - EVALUATE FOR DRESSING-RELATED FACTORS, SUCH AVAILABILITY, WEAR TIME, ADAPTABILITY AND USE TO BETTER OPTIMIZE WOUND HEALING AND PATIENT COMPLIANCE. STATUS: CONTINUED DATE: 02/05/2025 08. ADVANCED MODALITIES : - SET TREATMENT GOALS ACCORDING TO PATIENT AND/OR CAREGIVER?S ABILITY/ COMPLIANCE. STATUS: CONTINUED DATE: 02/05/2025 09. FALL PREVENTION : - COMPLETE FALL ASSESSMENT. STATUS: COMPLETED DATE: 12/11/2024 10. PAIN MANAGEMENT : - COMPLETE PAIN ASSESSMENT STATUS: COMPLETED DATE: 12/11/2024 11. MEASURABLE GOALS FOR WOUND HEALING AND/OR HYPERBARIC OXYGEN THERAPY : - DECREASE WOUND DIMENSIONS BEVERLEY KUMAR [id number] 1945 STATUS: CONTINUED DATE: 02/05/2025 12. DURATION/FREQUENCY OF WOUND CARE VISITS : - 1X MONTH FOR NEXT FEW MONTHS ( NEEDED FOR PALLIATIVE) - CHANGED TO PALLIATIVE STATUS 01/01/25. RETURN IN TWO WEEKS. STATUS: CONTINUED DATE: 02/05/2025 ELECTRONIC SIGNATURE(S) SIGNED BY: DATE: STARR OLIVAREZ MD 02/19/2025 12:55:37 (PT) ENTERED BY: STARR OLIVAREZ MD ON 02/19/2025 12:43:25 (PT) BEVERLEY KUMAR [id number] 1945
== END ==
PROVIDERS: Family Provider Internal Medicine; PCP Internal Medicine; Referring Provider Internal Medicine; Visit Provider Surgery
DX: E11.621 Type 2 diabetes mellitus with foot ulcer (principal); L97.512 Non-pressure chronic ulcer of other part of right foot with fat layer exposed; L84 Corns and callosities; E11.40 Type 2 diabetes mellitus with diabetic neuropathy, unspecified; L53.8 Other specified erythematous conditions; M20.41 Other hammer toe(s) (acquired), right foot
CPT/HCPCS: 97597; 99213

== ENCOUNTER → 2025-02-19 11:40 | Outpatient (CLI) | payer MEDICARE, OTHER, SELFPAY ==
[2025-02-19 12:21] LABS: Add Manual Diff / Slide Review NO; Basophils Absolute Auto 100 /uL (0-100); Basophils Percent Auto 1.1 % (0-2); Eosinophils Absolute Auto 300 /uL (0-450); Eosinophils Percent Auto 3.3 % (2-4); Hematocrit 37.7 % (36-46); Hemoglobin 12.3 g/dL (12.0-16.0); Lymphocytes Absolute Auto 1600 /uL (1100-4500); Lymphocytes Percent Auto 18.1 % (25-40); Mean Corpuscular HGB Conc 32.5 % (30-36); Mean Corpuscular Hemoglobin 27.6 PG (26-34); Mean Corpuscular Volume 84.8 fL (80-100); Monocytes Absolute Auto 800 /uL (0-900); Monocytes Percent Auto 8.6 % (3-14); Neutrophils Absolute Auto 6100 /uL (1500-7000); Neutrophils Percent Auto 68.9 % (50-75); Platelet Count 173 X10^3/uL (150-400); Red Blood Cell Count 4.45 X10^6/uL (4.0-5.2); White Blood Cell Count 8.9 X10^3/uL (4.5-11.0)
[2025-02-19 12:46] LABS: Alanine Aminotransferase 22 IU/L (<35); Albumin Globulin Ratio 1.5 (1.0-2.8); Alkaline Phosphatase 60 U/L (38-126); Aspartate Aminotransferase 28 IU/L (14-36); BUN Creatinine Ratio 24.3 (6-22); Bilirubin Total 0.6 mg/dL (0.2-1.3); Blood Urea Nitrogen 17 mg/dL (7-17); Calcium 9.2 mg/dL (8.4-10.2); Carbon Dioxide 28 mmol/L (22-32); Chloride 101 mmol/L (98-107); Estimated Glomerular Filt Rate > 60 mL/min (>60); Globulin 2.6 g/dL (1.7-4.1); Glucose 98 mg/dL (80-110); HEMOLYSIS < 15 (0-50); Potassium 4.8 mmol/L (3.4-5.1); Sodium 138 mmol/L (137-145); Total Protein 6.6 g/dL (6.3-8.2)
== END ==
PROVIDERS: Surgery; Family Provider Internal Medicine; PCP Internal Medicine; Referring Provider Internal Medicine; Visit Provider Internal Medicine
DX: E11.621 Type 2 diabetes mellitus with foot ulcer (principal); L97.512 Non-pressure chronic ulcer of other part of right foot with fat layer exposed; L84 Corns and callosities; E11.40 Type 2 diabetes mellitus with diabetic neuropathy, unspecified; L53.8 Other specified erythematous conditions; M20.41 Other hammer toe(s) (acquired), right foot
CPT/HCPCS: 36415; 80053; 85025; 97597

== ENCOUNTER → 2025-02-26 13:42 | Outpatient (CLI) | payer MEDICARE, OTHER, SELFPAY | PROVIDERS: Family Provider Internal Medicine; PCP Internal Medicine; Referring Provider Internal Medicine; Visit Provider Surgery | DX: E11.621 Type 2 diabetes mellitus with foot ulcer (principal); L97.512 Non-pressure chronic ulcer of other part of right foot with fat layer exposed; L53.9 Erythematous condition, unspecified; L84 Corns and callosities; R60.0 Localized edema; M20.41 Other hammer toe(s) (acquired), right foot; E11.40 Type 2 diabetes mellitus with diabetic neuropathy, unspecified; Z79.2 Long term (current) use of antibiotics | CPT/HCPCS: 99213 ==

== ENCOUNTER → 2025-03-12 13:41 | Outpatient (CLI) | payer MEDICARE, OTHER, SELFPAY | PROVIDERS: Family Provider Internal Medicine; PCP Internal Medicine; Referring Provider Internal Medicine; Visit Provider Surgery | DX: E11.621 Type 2 diabetes mellitus with foot ulcer (principal); L97.512 Non-pressure chronic ulcer of other part of right foot with fat layer exposed; L53.8 Other specified erythematous conditions; L54 Erythema in diseases classified elsewhere; R60.0 Localized edema; M20.41 Other hammer toe(s) (acquired), right foot | CPT/HCPCS: 99212; 99213 ==

== ENCOUNTER 2025-04-03 06:09 | Day surgery (SDC) | payer MEDICARE, OTHER, SELFPAY ==
[2025-03-31 11:59] VITALS: BMI 40.0
--- NOTE | 2025-04-03 | PATH_ITS ---
[facility] Accession Number: [id number] No. of containers..01 Tissue . 01 Material submitted: . toe - RIGHT THIRD TOE . 01 Clinical history: . HISTORY OF ULCERS . 01 Diagnosis: RIGHT THIRD TOE, AMPUTATION: Skin with hyperkeratosis, and subcutaneous tissue with mild chronic inflammation and dystrophic calcifications. Bone with focal changes (fibrosis and small collections of neutrophils and plasma cells), compatible with early acute osteomyelitis versus resolving chronic-active osteomyelitis. Clinical and radiologic correlation is recommended. Negative for malignancy. Soft tissue nad bone margins: Viable, without evidence of acute inflammation. V 04/09/2025 1838 Local . 01 Electronically signed: . Katya Jonas MD, Pathologist NPI- [id number] . 01 Gross description: . Received in formalin with two identifiers and right third toe with history of ulcers, is a disarticulated digit, 5.7 cm in length by 2.2 cm in diameter. The skin is campa and wrinkled with a slightly roughened keratotic area on the distal tip of the digit, 0.7 x 0.3 cm, widely free from the margins. The nail is irregular, cracked, and friable. The soft tissue margin is inked blue while the articular surface is inked orange. Sectioning reveals pink-campa soft tissue and campa osseous tissue that is relatively difficult to section with a scalpel. Shop Girl sections are submitted as follows: . A1: Soft tissue margin en face. A2: Articular surface en face. A3: Longitudinal section with keratotic lesion and underlying bone. Specimen decalcified. ([id number]) /MRV 04/04/2025 1901 Local . 01 Pathologist provided ICD-10: M20.41 . 01 CPT . 917829, [id number] Specimen Comment: A courtesy copy of this report has been sent to [phone] Performed at: [address] [address], [place], [place] [id number] MD Manjeet Garduno MD Phone: [phone]
[2025-04-03 06:50] VITALS: BP 141/65; PULSE 65; RESP 18; TEMP 36.2; O2SAT 98; BMI 40.0
[2025-04-03] MEDS: ALBUTEROL/IPRATROPIUM 3 ML AMPUL INH (07:06)
[2025-04-03] MEDS: LACTATED RINGERS 1,000 ML 84 ML IV (07:06)
[2025-04-03] MEDS: ACETAMINOPHEN IV 1,000 MG/100 ML VIAL 400 MG IV (07:12)
--- NOTE | 2025-04-03 07:30 | PM.PREOP ---
Pre-operative Note Interval Note History & Physical reviewed/Exam performed by Physician: Yes Changes to H&P: No
--- NOTE | 2025-04-03 07:30 | PM.OP.1 ---
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 Same procedure as scheduled: Yes Indications: 79 yo DM female presents for right third toe removal. She has had chronic ulceration development and skin breakdown due to her hammertoe condition. 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 We discussed the risks, potential complications, expected outcomes, and alternatives. She has had multiple workup and clearances from her associated clinical specialists regarding her medical conditions and airway, as well as review of her condition from Anesthesia providers. Consent is reviewed and given, and she wishes to proceed at this time. Surgeon: Nga Austin Click Yes if Unassisted: Yes Anesthesia Type: Local Operative Notes Findings: Right third toe tip skin had healed. Third toe amputation base is clean, no necrotic tissue. Closure Type: primary Specimen(s): other (Right third toe sent to Pathology as specimen to check distal phalanx h/o chronic ulceration, possible osteomyelitis.) Estimated Blood Loss (mL): 20 Blood products transfused: none Procedure in detail: The patient was brought to the operating room and remained in the gurney in the supine position. She was well-padded and secured with comfort and safety. The head of the bed was elevated. A tourniquet was not used during the procedure. Per discussion of her medical conditions with myself, the patient and her daughter, and the attending Anesthesiologist, no sedation or intubation is used and instead, local anesthesia to the toe is provided. The foot and ankle were prepped and draped in the usual aseptic manner. After check of anesthesia a full-thickness circumferential incision was made around the right third toe at the digital sulcus. This was then continued into the metatarsophalangeal joint linearly. The right third toe was carefully disarticulated and passed from the field to send to Pathology. The base of the proximal phalanx showed no necrosis and no purulent discharge. The area was irrigated with copious amounts of normal sterile saline. No necrotic tissue or abscesses were noted. Skin and tissue was revised to allow for appropriate closure. Vessels were cauterized and ligated as necessary. 4-0 Vicryl was used subcutaneously for closure and 4-0 nylon for the skin. The area was dressed with a sterile lightly compressive dressing. Complications: none Post-operative Condition: stable Disposition: PACU Plan for aftercare: Following a period of postoperative monitoring, the patient will be discharged to home on written and oral postoperative instructions including keeping the dressing dry and intact, as best as possible, no weight to the surgical foot. This was discussed in detail with her and her daughter prior to procedure and after, and if needed, walker for transfers. DVT prevention techniques have been reviewed. For the 1st postoperative visit the dressing will be changed and close to the 3rd postoperative week we will likely remove the sutures if not before.
[2025-04-03] MEDS: CEFAZOLIN 2 GM/100 ML PREMIX 100 ML IV (07:55)
--- NOTE | 2025-04-03 08:20 | SUR.OPER ---
Addendum entered by Tia Parisi R.N. 04/03/25 08:24: Right railing down throughout procedure. Safety straps applied (see note below) Original Note: Supine on padded gurney, head on pillow, in beach chair position, arms at side, legs uncrossed, tape over blanket over non operative lower legs. Safety tape over torso. Patient awake and alert throughout procedure and able to verbalize needs for repositioning and discomfort.
[2025-04-03] MEDS: BUPIVACAINE 0.5% (PF) 30 ML VIAL INJ (08:31)
[2025-04-03] MEDS: LIDOCAINE 2% INJ SDV 5ML 5 ML INJ (08:34)
[2025-04-03 09:20] VITALS: BP 141/65; PULSE 65; RESP 16; TEMP 36.6; O2SAT 99
== END 2025-04-03 09:31 | disposition home or self-care (01) ==
PROVIDERS: Family Provider Internal Medicine; PCP Internal Medicine; Referring Provider Podiatrist; Visit Provider Podiatrist
PROC: (CPT 28820; principal; 2025-04-03 07:45)
DX: E11.621 Type 2 diabetes mellitus with foot ulcer (principal); E11.42 Type 2 diabetes mellitus with diabetic polyneuropathy; M20.41 Other hammer toe(s) (acquired), right foot; Z79.4 Long term (current) use of insulin; Z79.84 Long term (current) use of oral hypoglycemic drugs
CPT/HCPCS: 28820; 82962; J0131; J0690

== ENCOUNTER → 2025-09-07 12:24 | Outpatient (CLI) | payer MEDICARE, OTHER, SELFPAY ==
--- NOTE | 2025-09-07 12:26 | DI.RAD.S_ITS ---
PROCEDURE: XR CHEST 2V INDICATIONS: CHEST PAIN TECHNIQUE: 2 views of the chest were acquired. COMPARISON: [facility], , XR CHEST 1V, 07/18/2021, 10:19. [facility], , CHEST 1 VIEW, 04/06/2015, 13:37. FINDINGS: Surgical changes and devices: None. Lungs and pleura: Small bilateral pleural effusions. No pneumothorax. Perihilar predominant airspace opacities. Mild interstitial opacities bilaterally. Mediastinum: Mediastinal contours are normal. Heart size is normal. Bones and chest wall: No suspicious bony abnormalities. Soft tissues appear unremarkable. IMPRESSION: Mild pulmonary edema with small bilateral pleural effusions. Dictated by: Blaze Story M.D. on 09/07/2025 at 15:13 Approved by: Blaze Story M.D. on 09/07/2025 at 15:14
== END ==
PROVIDERS: Family Provider Internal Medicine; PCP Internal Medicine
DX: J81.1 Chronic pulmonary edema (principal); J90 Pleural effusion, not elsewhere classified; R06.00 Dyspnea, unspecified; R05.1 Acute cough
CPT/HCPCS: 71046